=== PATIENT | male | born 1945 | race African-American/Black ===

== ENCOUNTER 2024-11-06 12:35 | Inpatient (IN) | payer OTHER, SELFPAY ==
[2024-11-06] VITALS (7 sets, daily range): BP systolic 117–145; BP diastolic 45–75; PULSE 69–92; RESP 16–24; TEMP 35.9–36.9; O2SAT 96–100; BMI 21.3
--- NOTE | 2024-11-06 | ECHO_ITS ---
Patient Info Name: Hugo Jeter Age: 79 years : 1945 Gender: Male Ht: 69 in Wt: 160 lbs BSA: 1.88 m2 HR: 80 bpm BP: 124 / 63 mmHg Heart Rhythm: Sinus Rhythm Technical Quality: Fair Exam Date: 11/06/2024 4:00 PM Patient Status: O Admit Date: 11/06/2024 Exam Type: CA echo dop bubble study w con Complete two-dimentional, color flow and Doppler transthoracic echocardiogram is performed with agitated saline and with contrast to opacify the left ventricle and to improve the delineation of the left ventricle endocardial borders. Staff Referring Physician: Miguel Torres MD Weapons Mechanic: Tootie Jarrell Attending Provider: Adelfo Siegel Contrast/Agitated Saline Contrast/Ag. Saline: Agitated Saline Amount: 20.00 ml Existing IV Access: Yes IV Access Condition: patent with no signs of infiltration Contrast/Ag. Saline: Definity Amount: 2.00 ml Administered By: Tootie Jarrell Existing IV Access: Yes IV Access Condition: patent with no signs of infiltration Summary 1. Technically difficult study with very poor acoustic windows and limited views. 2. There is normal biventricular size and systolic function. 3. Agitated saline study showed delayed transit of bubbles from [id number] suggestive of extracardiac shunt. Left Ventricle The left ventricle is normal in size and systolic function. The left ventricular ejection fraction is visually estimated be 50-55%. Cannot rule out regional wall motion abnormalities in this study. Right Ventricle The right ventricle is normal in size and systolic function. Left Atria The left atrium is normal size. Right Atria The right atrium is normal size. Atrial Septum Agitated saline study showed delayed transit of bubbles from [id number] suggestive of extracardiac shunt. Aortic Valve The aortic valve is not well visualized. Doppler gradients do not suggest significant aortic stenosis. Color Doppler suggests mild aortic regurgitation. Pulmonic Valve The pulmonic valve was not visualized. Mitral Valve The mitral valve leaflets are sclerotic. There is no mitral stenosis. There is no mitral regurgitation. Tricuspid Valve Tricuspid valve is not well visualized. Pericardium/Pleural Pericardium is normal in appearance with no evidence for significant pericardial effusion. Inferior Vena Cava Normal inferior vena cava with <50% collapse upon inspiration consistent with elevated right atrial pressure, 8 mmHg. Aorta The aorta is not well visualized. Left Ventricular Outflow Tract Name Value Normal LVOT 2D LVOT Diameter 2.0 cm LVOT Doppler LVOT Peak Velocity 68 cm/s LVOT Peak Gradient 2 mmHg LVOT Mean Gradient 1 mmHg LVOT VTI 13 cm LVOT VTI/AV VTI Ratio 0.5 LVOT Stroke Volume 39 ml LVOT CO 2.9 l/min LVOT CI 1.5 l/min/m2 Mitral Valve Name Value Normal MV Diastolic Function MV E Peak Velocity 52 cm/s MV A Peak Velocity 120 cm/s MV E/A 0.4 MV Decel Time (PW) 133 ms MV Annular TDI MV E/e' (Septal) 9.7 MV E/e' (Lateral) 7.9 MV E/e' (Average) 8.8 Tricuspid Valve Name Value Normal Estimated PAP/RSVP RA Pressure 8 mmHg <=5 TV Annular TDI TV Lateral Chyna s' Velocity 16.1 cm/s >=9.5 Aortic Valve Name Value Normal AV Doppler AV Peak Velocity 128 cm/s AV Peak Gradient 7 mmHg AV Mean Gradient 3 mmHg AV VTI 23 cm AV Area (Cont Eq VTI) 1.7 cm2 >=3.0 AV Area (Cont Eq Kameron) 1.7 cm2 AV DI (Kameron) 0.53 AV Regurgitation 2D LVOT Area 3.1 cm2 Ventricles Name Value Normal LV Dimensions 2D/MM LVOT Diameter 2.0 cm LV Fractional Shortening/Ejection Fraction 2D/MM LV Diastolic Volume (4C MOD) 149 ml LV EF (4C MOD) 52 % LV Diastolic Volume (2C MOD) 104 ml LV EF (2C MOD) 51 % LV Diastolic Volume (BP MOD) 133 ml 62-150 LV Diastolic Volume Index (BP MOD) 70 ml/m2 34-74 LV Systolic Volume (BP MOD) 62 ml 21-61 LV Systolic Volume Index (BP MOD) 33 ml/m2 11-31 LV EF (BP MOD) 53 % 52-72 LV Diastolic Length (4C) 9.5 cm LV Systolic Length (4C) 7.1 cm LV Stroke Volume (4C MOD) 78 ml Atria Name Value Normal LA Dimensions LA Volume (4C A-L) 39 ml LA Volume (BP A-L) 40 ml RA Dimensions RA Area (4C) 14.2 cm2 <=18.0 Report Signatures
--- NOTE | ~2024-11-06 | US_ITS ---
Duplex Sonography of the bilateral lower extremities: Indication: Swelling Sagittal and transverse B-mode images as well as color-flow imaging were performed on the right and l eft femoral and popliteal veins. B-mode examination was done without and with compression in the tra nsverse plane. There is good visualization of the bilateral common femoral, proximal profunda femora l, superficial femoral, greater saphenous, and popliteal veins. Normal flow was seen on color-flow im aging. Normal compressibility was demonstrated. Visualized calf veins are also patent. Impression: No evidence of deep vein thrombosis involving either lower extremity. Reviewed, dictated and finalized at location M. Impression: No evidence of deep vein thrombosis involving either lower extremit y.
--- NOTE | ~2024-11-06 | CT_ITS ---
EXAM: CTA brain carotid - 11/06/2024 12:40 CDT History: 79 years old Male with cva TECHNIQUE: CT scan of the head without contrast. Subsequently CTA of the head and neck with intraveno us contrast was performed. 3-D reconstructed images of cerebral artery circulation were generated on a [employer] workstation. Automatic exposure control was used for this study. CONTRAST: 100 cc of Omnipaque 350 was used for this study COMPARISON: None available. FINDINGS: Normal branching pattern of the thoracic aorta. Great vessels of the neck are patent. RIGHT ANTERIOR CIRCULATION: Innominate and right common carotid artery is normal in caliber. No significant stenosis at the carotid bifurcation by NASCET criteria. Cervical segment of the internal carotid artery is normal in caliber. Cavernous and supraclinoid segm ents of the internal carotid artery patent. M1 segment and middle cerebral artery bifurcation are unremarkable. A1 segment, anterior communicating artery complex and A2 segment are within normal limits. LEFT ANTERIOR CIRCULATION: Left common carotid artery is normal in caliber. No significant stenosis at the carotid bifurcation by NASCET criteria. Cervical segment of the internal carotid artery is normal in caliber. Cavernous and supraclinoid segm ents of the internal carotid artery patent. M1 segment and middle cerebral artery bifurcation are unremarkable. A1 segment, anterior communicating artery complex and A2 segment are within normal limits. POSTERIOR CIRCULATION: Vertebral arteries are codominant and patent throughout the neck. Intradural vertebral arteries are normal in caliber and terminate as the basilar artery. Basilar artery is normal in caliber. P1 and P2 segments of the posterior cerebral arteries are normal in caliber. OTHER: Multilevel degenerative changes of the visualized cervical spine. Visualized lungs are clear. Complet e opacification of the right maxillary sinus. Patient is edentulous. IMPRESSION: Unremarkable CTA of the head and neck. No evidence of cerebral artery aneurysm, stenosis or mass. Complete opacification of the right maxillary sinus. Correlate clinically for acute sinusitis. *REFERENCES: NASCET CRITERIA: The degree of internal carotid artery (ICA) stenosis is based on NASCET criteria. No rmal is no stenosis. Mild is less than 50% stenosis. Moderate is 50-69% stenosis. Severe is 70-99% st enosis. Total occlusion is no detectable patent lumen. Reviewed, dictated and finalized at location A. IMPRESSION: Unremarkable CTA of the head and neck. No evidence of cerebral artery aneurysm , stenosis or mass. Complete opacification of the right maxillary sinus. Correlate clinically for a cute sinusitis. *REFERENCES: NASCET CRITERIA: The degree of internal carotid artery (ICA) stenosis is based on NASCET criteria. Normal is no stenosis. Mild is less than 50% stenosis. Mode rate is 50-69% stenosis. Severe is 70-99% stenosis. Total occlusion is no detec table patent lumen.
--- NOTE | ~2024-11-06 | US_ITS ---
Limited Abdominal Sonogram: Real-time sonographic imaging of the right upper quadrant was performed. Clinical History: Abnormal liver enzymes Findings: The liver appears echogenic, with no evidence of mass lesion or bile duct dilatation. Main portal vein demonstrates normal direction of flow. The gallbladder is well distended, and appears no rmal with no evidence of gallstone or wall thickening. The common bile duct measures 4 mm. The visua lized pancreas, aorta, and IVC are unremarkable. Impression: Diffuse fatty infiltration of the liver. Reviewed, dictated and finalized at location M. Impression: Diffuse fatty infiltration of the liver.
--- NOTE | ~2024-11-06 | CT_ITS ---
CT head without contrast Indication: CVA Technique: Serial scans were obtained through the brain without the administration of contrast. Dose reduction technique was used on this scan by utilizing automated exposure control and iterative recon struction technique. The dose-length product (DLP) was 605.33 mGy-cm. Findings: There is no evidence of intracranial hemorrhage, mass lesion, or acute infarct. The ventri cles and subarachnoid spaces are dilated, consistent with mild atrophy. Minimal low attenuation regio ns are seen within the periventricular white matter bilaterally, likely representing changes from chr onic microvascular ischemic disease. There is no evidence of edema, mass effect or midline shift. Le ft maxillary sinus disease present. The remaining visualized paranasal sinuses and mastoid air cells are clear. Impression: No intracranial hemorrhage, mass, or acute infarct. Atrophy and chronic white matter changes, as above. Case discussed with Dr. Torres at 12:52 PM on 11/06/2024. Reviewed, dictated and finalized at [facility]. Impression: No intracranial hemorrhage, mass, or acute infarct. Atrophy and chronic white matter changes, as above. Case discussed with Dr. Torres at 12:52 PM on 11/06/2024.
--- NOTE | ~2024-11-06 | MR_ITS ---
EXAMINATION: MR brain/brain stem wo/w con DATE: 11/07/2024 16:03 INDICATION: Right-sided weakness TECHNIQUE: Magnetic resonance imaging (MRI) of the brain and brainstem was performed without and with 15 mL ProHance intravenous contrast. Sequences included sagittal and axial T1-weighted SE, axial dif fusion-weighted FS SE, axial 3D SWAN, axial T2-weighted FLAIR, and axial T2-weighted FSE. Postcontras t axial and coronal T1-weighted SE was obtained. Apparent diffusion coefficient (ADC) maps were creat ed. COMPARISON: Head CT dated 11/06/2024 FINDINGS: There are multiple small regions of restricted diffusion with mild associated increased T2 signal in the left frontal and parietal lobes consistent with acute infarcts, likely shower of emboli in the va scular distribution of the left middle cerebral artery. No intracranial hemorrhage or abnormal intrac ranial mass lesion. There are additional scattered areas of nonspecific increased T2-weighted signal intensity in the cerebral white matter, predominantly involving the deep and periventricular white ma tter. There are no intraparenchymal signal abnormalities seen on the other pulse sequences. The ventr icles are symmetric and normal in size. There are no abnormal extra-axial fluid collections. Flow voi ds are seen in the cerebral arteries on the T2-weighted sequences consistent with their expected lewis ncy. There is mucosal thickening in the left ethmoid and maxillary sinuses, the latter with additiona l central mucous nearly filling the left maxillary sinus. Visualized orbits and soft tissues are unre markable. There are no areas of abnormal enhancement on the post contrast images. IMPRESSION: 1. Multiple small acute infarcts in the left frontal and parietal lobes consistent with sharp emboli in the left middle cerebral artery vascular disease effusion. Reviewed, dictated and finalized at location [facility]. IMPRESSION: 1. Multiple small acute infarcts in the left frontal and parietal lobes consist ent with sharp emboli in the left middle cerebral artery vascular disease effus ion.
--- NOTE | ~2024-11-06 | CT_ITS ---
EXAMINATION: CT diagnostic chest wo con DATE: 11/10/2024 19:05 INDICATION: Assess for pulmonary arterial venous malformations TECHNIQUE: Computed tomography (CT) of the chest was performed with 100 mL Omnipaque-350 intravenous contrast. Automated exposure control and iterative reconstruction technique were employed. The dose-l ength product was 395.39 mGy-cm. COMPARISON: None. FINDINGS: CHEST: Thoracic aorta: No significant dilation or calcification. Lung parenchyma and airways: Spiculated 5.2 x 2.4 cm right upper lobe mass. Severe emphysematous reilly ge. Thoracic inlet, axillae and chest wall: No thyroid or soft tissue mass. No axillary lymphadenopathy. Mediastinum: Right suprahilar scarring and hilar retraction. Multiple enlarged right hilar and medias tinal lymph nodes. Heart and pericardium: Normal heart size. No pericardial effusion. Coronary artery calcifications: Moderate. Pleura: No effusion or mass. Upper abdomen: No significant finding. Thoracic bones: No acute osseous finding in the chest. T6 vertebral body hemangioma. IMPRESSION: 5.2 cm right upper lobe mass, concerning for malignancy. Right hilar and mediastinal lymph node invol vement is suspected. Consider biopsy and/or PET/CT. Pulmonary artery malformations cannot be adequately assessed without contrast. Reviewed, dictated and finalized at location [facility]. IMPRESSION: 5.2 cm right upper lobe mass, concerning for malignancy. Right hilar and medias tinal lymph node involvement is suspected. Consider biopsy and/or PET/CT. Pulmonary artery malformations cannot be adequately assessed without contrast.
--- NOTE | ~2024-11-06 | XR_ITS ---
XR chest 1V portable Ordering provider: Miguel Torres MD History: 79 years Male with . cva . Comparison: None. FINDINGS: MEDIASTINUM: The cardiac silhouette is not enlarged. LUNGS: No infiltrates, effusions or pneumothorax. Fibrotic changes are seen in the right upper lobe and left lower lobe. OTHER: No free air under the diaphragm. IMPRESSION: Fibrotic changes in the right upper and left lower lobe. No acute lung lesion seen Reviewed, dictated and finalized at location A.
--- NOTE | 2024-11-06 12:42 | ECG_ITS ---
Test Date: 2024-11-06 13:08:52 Measurements Intervals [place] Rate: 86 P: 50 WV: 169 QRS: 56 QRSD: 107 T: 118 QT: 362 QTc: 434 Interpretive Statements SINUS RHYTHM EARLY PRECORDIAL R/S TRANSITION ANTEROLATERAL INFARCT, AGE INDETERMINATE INFERIOR INFARCT, AGE INDETERMINATE CONSIDER HIGH LATERAL INFARCT, AGE INDETERMINATE ABNORMAL ECG No previous ECG available for comparison Electronically Signed On 11-06-2024 14:31:03 CDT by Kevin Mayer D.O.
[2024-11-06 12:49] LABS: Hematocrit 47.0 % (42.0-52.0); Hemoglobin 15.6 g/dL (14.0-18.0); Immature Granulocyte Percent A 0.6 % (0-0.5); Lymphocytes Absolute Auto 1.83 K/mm3 (0.9-3.2); Mean Corpuscular HGB Conc 33.2 g/dl (32-36); Mean Corpuscular Hemoglobin 30.0 pg (26-34); Mean Corpuscular Volume 90.4 fl (80-100); Nucleated Red Blood Cells Absolute Auto 0.000 K/mm3 (0.0-0.012); Nucleated Red Blood Cells Perc 0.0 % (0.0-0.2); Platelet Count Result 283 k/mm3 (150-375); Red Blood Count 5.20 M/mm3 (4.6-6.20); White Blood Count 10.8 K/mm3 (4.5-10.0)
[2024-11-06 13:00] LABS: Alanine Aminotransferase 20 U/L (6-50); Albumin Level 4.2 g/dL (3.5-5.1); Alkaline Phosphatase 179 U/L (38-126); Anion Gap 11 mmol/L (4-12); Aspartate Amino Transferase 32 U/L (17-59); Bilirubin,Total 0.5 mg/dL (0.2-1.3); Blood Urea Nitrogen 16 mg/dL (9-20); Calcium 9.9 mg/dL (8.4-10.2); Carbon Dioxide 20 mmol/L (22-30); Chloride 108 mmol/L (98-107); Estimated Glomerular Filt Rate 45; Glucose 115 mg/dL (65-110); Potassium 4.4 mmol/L (3.4-5.0); Sodium 139 mmol/L (137-145); Total Protein 8.9 g/dL (6.3-8.2)
[2024-11-06 13:10] LABS: INR 1.1; Prothrombin Time 14.0 Seconds (11.1-14.7)
[2024-11-06 13:11] LABS: Partial Thromboplastin Time 26.1 Seconds (22.3-36.8)
[2024-11-06 13:12] LABS: Troponin I < 0.012 ng/mL (0.000-0.034)
--- NOTE | 2024-11-06 13:45 | ED_ITS ---
HPI - General Adult General Chief complaint: Fall Stated complaint: fall, right sided weakness, slurred speech, Time Seen by Provider: 11/06/24 12:43 History of Present Illness HPI narrative: Patient is an 79-year-old male who presents ER with concerns for CVA. Last known well per his daughter was at 7:38 a.m. this morning. Patient has arrived outside the window for TNK. He has right facial/right arm/right leg weakness. He has some slurred speech. He is not on blood thinners. He has history of IA in the past. Patient had fallen on the floor was lying there he was found. Initially did not want to the hospital. Related Data Allergies Allergy/AdvReac Type Severity Reaction Status Date / Time No Known Allergies Allergy Verified 11/06/24 13:49 Review of Systems 2 Review of Systems: All systems reviewed & are unremarkable except as noted in HPI and below Constitutional: Constitutional: Reports no additional constitutional complaints Cardiovascular: Cardiovascular: Reports no additional cardiovascular complaints Respiratory: Respiratory: Reports no additional respiratory complaints Gastrointestinal: Gastrointestinal: Reports no additional gastrointestinal complaints Musculoskeletal: Musculoskeletal: Reports no additional musculoskeletal complaints Neurologic: Reports system reviewed and no additional complaints, except as documented PMFSH Past Medical History Medical History (Updated 11/06/24 @ 15:06 by Miguel Torres MD) Myocardial infarction Exam 2 Narrative: GENERAL: Well-appearing, well-nourished, and in no acute distress. HEAD: Normocephalic, atraumatic. ENT: Mucous membranes moist. CHEST: Clear to auscultation. No respiratory distress. HEART: Regular rate and rhythm. Normal peripheral pulses. ABDOMEN: Soft, nontender, nondistended. EXTREMITIES: Left arm and leg weakness. No edema. SKIN: Warm, dry, no rash. NEURO: See NIH stroke scale documentation which equals 9. Right-sided weakness in the arms/legs/face. No sharp herself sensory deficit. Mild slurred speech but no expressive aphasia. Alert and oriented x3. Reports no change in vision per PSYCH: Normal mood and affect. Course Course Emergency Course: Discussed case with Neurology, Dr. Casillas. Admit to hospitalist service with orders for MRI and echocardiogram. Start dual anti-platelet therapy. Patient outside the window for TNK and discussed this with patient and family member. No LVO/stenosis on CTA. Vital Signs Vital signs: Vital Signs Temperature 98.4 F 11/06/24 13:02 Pulse Rate 89 11/06/24 13:02 Respiratory Rate 24 H 11/06/24 13:02 Blood Pressure 130/56 L 11/06/24 13:02 Pulse Oximetry 96 11/06/24 13:02 Temperature 98.4 F 11/06/24 13:02 Pulse Rate 89 11/06/24 13:02 Respiratory Rate 24 H 11/06/24 13:02 Blood Pressure 130/56 L 11/06/24 13:02 Pulse Oximetry 96 11/06/24 13:02 Medical Decision Making Vital Signs Vital Signs: Vital Signs Temperature 98.4 F 11/06/24 13:02 Pulse Rate 89 11/06/24 13:02 Respiratory Rate 24 H 11/06/24 13:02 Blood Pressure 130/56 L 11/06/24 13:02 Pulse Oximetry 96 11/06/24 13:02 Temperature 98.4 F 11/06/24 13:02 Pulse Rate 89 11/06/24 13:02 Respiratory Rate 24 H 11/06/24 13:02 Blood Pressure 130/56 L 11/06/24 13:02 Pulse Oximetry 96 11/06/24 13:02 Lab Data 11/06/24 12:44 11/06/24 12:44 Labs: Lab Results 11/06/24 11/06/24 Range/Units 12:42 12:44 WBC 10.8 H (4.5-10.0) K/mm3 RBC 5.20 (4.6-6.20) M/mm3 Hgb 15.6 (14.0-18.0) g/dL Hct 47.0 (42.0-52.0) % MCV 90.4 (80-100) fl MCH 30.0 (26-34) pg MCHC 33.2 (32-36) g/dl RDW 13.8 (11.5-14.5) % Plt Count 283 (150-375) k/mm3 MPV 8.7 (7.4-10.4) fl Immature Gran % (Auto) 0.6 H (0-0.5) % Neut % (Auto) 73.0 (45.5-73.1) % Lymph % (Auto) 17.0 L (18.3-44.2) % [place] % (Auto) 8.5 (2.6-8.5) % Eos % (Auto) 0.6 (0-4.4) % Baso % (Auto) 0.3 (0.2-1.2) % Lymph # (Auto) 1.83 (0.9-3.2) K/mm3 [place] # (Auto) 0.9 H (0.1-0.6) K/mm3 Eos # (Auto) 0.1 (0-0.3) K/mm3 Baso # (Auto) 0.0 (0.0-0.1) K/mm3 Abs Immat Gran (auto) 0.06 H (0.00-0.031) K/mm3 Absolute Neuts (auto) 7.9 H (1.3-6.7) K/mm3 Absolute Nucleated RBC 0.000 (0.0-0.012) K/mm3 Nucleated RBC % 0.0 (0.0-0.2) % PT 14.0 (11.1-14.7) Seconds INR 1.1 APTT 26.1 (22.3-36.8) Seconds Sodium 139 (137-145) mmol/L Potassium 4.4 (3.4-5.0) mmol/L Chloride 108 H (98-107) mmol/L Carbon Dioxide 20 L (22-30) mmol/L Anion Gap 11 (4-12) mmol/L BUN 16 (9-20) mg/dL Creatinine 1.49 H (0.7-1.3) mg/dL Estim Creat Clear Calc Not Reportable Estimated GFR 45 L (59 - ) Glucose 115 H (65-110) mg/dL POC Capillary Glucose 100 (65-105) mg/dl Calcium 9.9 (8.4-10.2) mg/dL Total Bilirubin 0.5 (0.2-1.3) mg/dL AST 32 (17-59) U/L ALT 20 (6-50) U/L Alkaline Phosphatase 179 H (38-126) U/L Troponin I < 0.012 (0.000-0.034) ng/mL Total Protein 8.9 H (6.3-8.2) g/dL Albumin 4.2 (3.5-5.1) g/dL Imaging Data Radiologist's impression: ITS Impressions Head CT 11/06/24 12:52 Impression: No intracranial hemorrhage, mass, or acute infarct. Atrophy and chronic white matter changes, as above. Case discussed with Dr. Torres at 12:52 PM on 11/06/2024. Head/Neck CTA 11/06/24 13:07 IMPRESSION: Unremarkable CTA of the head and neck. No evidence of cerebral artery aneurysm, stenosis or mass. Complete opacification of the right maxillary sinus. Correlate clinically for acute sinusitis. *REFERENCES: NASCET CRITERIA: The degree of internal carotid artery (ICA) stenosis is based on NASCET criteria. Normal is no stenosis. Mild is less than 50% stenosis. Moderate is 50-69% stenosis. Severe is 70-99% stenosis. Total occlusion is no detectable patent lumen. Chest X-Ray 11/06/24 14:14 IMPRESSION: Fibrotic changes in the right upper and left lower lobe. No acute lung lesion seen ECG Data EKG #1: ECG completion date: 11/06/24 ECG completion time: 13:08 EKG Interpretation: normal rate (86), sinus rhythm, no ectopy, non- specific ST changes, normal QRS and normal QT Critical Care Time Critical Care Time Critical Care Time: Yes Total Critical Care Time: 35 Discharge Plan Discharge Clinical Impression: Acute CVA (cerebrovascular accident) Patient Disposition: Still a Patient Condition: Stable Patient Language: Albanian Follow-up/Referrals: UNKNOWN,DOCTOR [Primary Care Provider] - Quality Stroke Scale Stroke Scale 1: 1a Level of consciousness: alert-0 1b Level of consciousness questions: answers both correctly-0 1c Level of consciousness commands: obeys both correctly-0 2 Best gaze: normal-0 3 Visual: no visual loss-0 4 Facial palsy: partial paralysis-2 5a Motor: left arm: no drift-0 5b Motor: right arm: no effort/gravity-3 6a Motor: left leg: no drift-0 6b Motor: right leg: drift-1 7 Limb ataxia: present in two limbs-2 8 Sensory: normal-0 9 Best language: no aphasia-0 10 Dysarthria: slurs some words-1 11 Extinction and inattention: no abnormality-0 Level:: 9
[2024-11-06] MEDS: ASPIRIN 325 MG TABLET PO (13:53)
[2024-11-06] MEDS: CLOPIDOGREL BISULFATE 75 MG TABLET PO (13:53)
--- NOTE | 2024-11-06 14:25 | PM.IMHP ---
H&P: HPI History of Present Illness Date/Time: 11/06/24 21:23 Chief Complaint: Facial Droop, Extremity Weakness Narrative: 79 y/o M with PMH of myocardial infarction, cardiac stent placement in 2003, GERD, hernia, kidney stones presents here with facial droop and extremity weakness. The patient presents here from home for further evaluation of a right-sided facial droop, right hand weakness, and altered mental status. He was last seen well at 7:38 a.m. Discovery of symptoms at 09:00 a.m. He has no known history of stroke that he is aware of. Reporting weakness in his right leg, mild expressive aphasia, and dysarthria this evening. Denies any difficulty swallowing, no changes in his vision, dizziness or headache. He is not currently on anticoagulation. When found by his family, he had fallen on the floor and was lying on the ground. Patient is unsure if he lost consciousness or hit his head. Initial VS at presentation: 98.4? F, HR 89, RR 24, 130/56, and 96% on RA. ED workup showed: WBC 10.8, no anemia, normal coags, creatinine 1.49 and GFR 45, glucose 115, initial troponin negative. No previous lab work available for comparison. Head CT showed no acute intracranial hemorrhage/mass/acute infarct, atrophy and chronic white matter changes. Head/neck CTA showed an unremarkable CTA of the head/neck and no evidence of cerebral artery aneurysm/stenosis/mass and complete opacification of the right maxillary sinus. CXR showed fibrotic changes in the right upper and left lower lobe, no acute lung lesion seen. Review of Systems Review of Systems: All systems reviewed & are unremarkable except as noted in HPI and below FOR[facility]LY [facility] Past Medical History Medical History Arthritis Kidney stones Hernia GERD (gastroesophageal reflux disease) Myocardial infarction Surgical History Surgical History History of heart artery stent (~2003) Family History Family History Sibling Diabetes mellitus Mother Hypertension Social History Social History Smoking status: Current every day smoker Alcohol intake: former Substance use: never Do You Feel Safe in your Home?: Yes Lack of Transportation: YES Lack of Food: Never True Current Housing: I Have Housing Concerned About Future Housing: No Difficulty Paying Gas/Electric Bills: No Difficulty Paying for Meds: No Currently Unemployed: No Education: Don't Know Difficulty w/ Childcare or Family Care: No Spiritual care concerns: No Meds Home Medications and Allergies Home Medications ?Medication ?Instructions ?Recorded ?Confirmed ?Type No Home Medications 11/06/24 11/06/24 History Allergies Allergy/AdvReac Type Severity Reaction Status Date / Time No Known Allergies Allergy Verified 11/06/24 17:16 Vital Signs Vital Signs - 24 hr 11/06/24 13:02 11/06/24 14:14 Temperature 98.4 F Pulse Rate 89 92 Respiratory Rate 24 H 20 Blood Pressure 130/56 L 145/75 H Pulse Oximetry 96 98 Exam Const: General: comfortable and no acute distress Other: , male, elderly, nontoxic appearance. HENMT: Face/Nose/Sinus: Normal nares present Mouth: Yes moist mucous membranes Eyes: General: appearance normal, both eyes and all related structures Sclera: sclerae normal Pupils: Equal, round and reactive pupils present EOM: EOMs intact bilaterally Resp: Effort & Inspection: normal respiratory effort Auscultation: clear to auscultation bilaterally Cardio: Rate: regular rate Rhythm: regular rhythm Other: S1-S2 present without murmur, rub, ectopy GI: Other: Abdomen soft, nondistended, nontender. Normoactive bowel sounds in all quadrants. Skin: General skin exam: normal color and no rashes or lesions noted Wounds: no wounds Neuro: Other: Initial NIHSS 1a: Level of Consciousness 0 1b: LOC Questions 0 1c:?LOC Tasks 0 2:?Best Gaze 0 3:?Visual?[place] 0 4: Facial Palsy 2 5a: Motor Arm?R 0 5b: Motor Arm L 3 6a:?Motor Leg R 0 6a:?Motor Leg L 1 7: Limb Ataxia 2 8: Sensation 0 9:?Language/Aphasia 1 10:?Dysarthria?1 11: Extinction and Inattention 0 Total: 10 +dysarthria, some word finding difficulty but minimal. +Right facial droop. Weakness noticed in the right upper extremity and right lower extremity. +five in the left upper extremity and left lower extremity. No gaze palsy noted. Extrem: General: normal to inspection Psych: Mental Status: mental status grossly normal Affect: normal affect Other: Good insight and judgment, pleasant H&P: Results Labs Labs: Short CBC 11/06/24 Range/Units 12:44 WBC 10.8 H (4.5-10.0) K/mm3 Hgb 15.6 (14.0-18.0) g/dL Hct 47.0 (42.0-52.0) % Plt Count 283 (150-375) k/mm3 BMP 11/06/24 12:44 Sodium 139 Potassium 4.4 Chloride 108 H Carbon Dioxide 20 L BUN 16 Creatinine 1.49 H Glucose 115 H Calcium 9.9 Cardiac Enzymes 11/06/24 Range/Units 12:44 Troponin I < 0.012 (0.000-0.034) ng/mL Liver Function 11/06/24 Range/Units 12:44 Total Bilirubin 0.5 (0.2-1.3) mg/dL AST 32 (17-59) U/L ALT 20 (6-50) U/L Alkaline Phosphatase 179 H (38-126) U/L Albumin 4.2 (3.5-5.1) g/dL Assessment and Plan Assessment and plan (1) CVA (cerebral vascular accident): Code(s): I63.9 - Cerebral infarction, unspecified Status: Suspected Assessment and Plan: New deficits of right facial droop, right upper extremity weakness, and altered mental status discovered at 9:00 a.m.. Last known well at 7:38 a.m.. - admission for observation and telemetry - not candidate for thrombolytics due to timeframe -not candidate for thrombectomy, no LVO on CTA - CXR: Fibrotic changes in the right upper and left lower lobe. No acute lung lesion seen - CTA head/neck: Unremarkable CTA of the head and neck. No evidence of cerebral artery aneurysm, stenosis or mass. Complete opacification of the right maxillary sinus. Correlate clinically for acute sinusitis. - neurology consulted - brain MRI w/wo ordered - echo w/Bubble ordered - neuro checks Q4 - speech/swallow eval - PT/OT to eval and treat - monitor daily labs, check lipid panel, TSH, UA, and A1C - fall precautions - start Atorvastatin 40 mg PO, Plavix 75 mg PO, ASA 81 mg Plan Diet: Heart healthy GI Prophylaxis: Not currently indicated DVT Prophylaxis: SCDs IV fluids: None Lines/Tubes: Peripheral IV Code Status: Full code Quality VTE Prophylaxis VTE prophylaxis: mechanical ordered Hospitalist MIPS Advance Care Plan I have confirmed that the patient's Advanced Care Plan is present, code status is documented, or surrogate decision maker is listed in patient medical record.: Yes Medication Reconciliation I have utilized all available resources to obtain, update and review the patients current medications (includes all prescriptions, OTC, herbals, cannabis, and nutritional supplements).: Yes
[2024-11-06] MEDS: PERFLUTREN LIPID MICROSPHERES 1.5 ML VIAL DILUTED TO 10 ML TOTAL VOLUME IV PUSH (16:40)
--- NOTE | 2024-11-06 16:52 | IVDEFINITY ---
Prior to administration of IV Definity the patient was educated on the risks and benefits of the imaging enhancing agent including potential adverse side effects. The patient verbalized understanding. Allergies were verified. No exclusion criteria were identified and at least one of the following inclusion criteria were met: 1) physician request, 2) patient technically difficult to image (per the [place] [employer]chocardi[employer] guidelines of two or more segments not discernable within the apical view), or 3) questionable left ventricular function. ?
--- NOTE | 2024-11-06 16:58 | ADMGEN ---
This patient, Hugo Jeter, was admitted to [facility] S[facility] Room 323-01. Patient/family oriented to hospital policies and general routines including ID bracelet, bed and alarms, visiting hours, pain management, procedures, bathroom and other care routines, personal items, smoking policy, room service/diet, and visiting hours. Information on how to activate the Rapid Response Team has been discussed. Patient/Family are encouraged to report perceived risks to care and to ask questions if they do not understand what they are told or what they should do. Report from Tameka.
[2024-11-06 21:45] LABS: Add Urine Microscopic? YES; Appearance Urine Clear (Clear); Glucose Urine UA Negative (Negative); Leukocyte Esterase Ur Negative LEU/UL (Negative); Nitrate Urine Negative (Negative); Non Pathogenic Casts 0-2; Specific Grav Ur > 1.045 (1.001-1.035)
[2024-11-07] VITALS (7 sets, daily range): BP systolic 123–145; BP diastolic 39–48; PULSE 63–99; RESP 16–20; TEMP 36.2–36.6; O2SAT 96–98
[2024-11-07 06:50] LABS: Hematocrit 44.3 % (42.0-52.0); Hemoglobin 14.3 g/dL (14.0-18.0); Immature Granulocyte Percent A 0.5 % (0-0.5); Lymphocytes Absolute Auto 2.35 K/mm3 (0.9-3.2); Mean Corpuscular HGB Conc 32.3 g/dl (32-36); Mean Corpuscular Hemoglobin 29.6 pg (26-34); Mean Corpuscular Volume 91.7 fl (80-100); Nucleated Red Blood Cells Absolute Auto 0.000 K/mm3 (0.0-0.012); Nucleated Red Blood Cells Perc 0.0 % (0.0-0.2); Platelet Count Result 266 k/mm3 (150-375); Red Blood Count 4.83 M/mm3 (4.6-6.20); White Blood Count 9.3 K/mm3 (4.5-10.0)
[2024-11-07 07:13] LABS: Alanine Aminotransferase 15 U/L (6-50); Albumin Level 4.0 g/dL (3.5-5.1); Alkaline Phosphatase 169 U/L (38-126); Anion Gap 11 mmol/L (4-12); Aspartate Amino Transferase 34 U/L (17-59); Bilirubin,Total 0.5 mg/dL (0.2-1.3); Blood Urea Nitrogen 17 mg/dL (9-20); Calcium 9.5 mg/dL (8.4-10.2); Carbon Dioxide 20 mmol/L (22-30); Chloride 106 mmol/L (98-107); Cholesterol 178 mg/dL (0-200); Estimated CRCL calculation 38 ml/min; Estimated Glomerular Filt Rate 50; Glucose 89 mg/dL (65-110); HDL Direct 38 mg/dL; Magnesium 2.3 mg/dL (1.6-2.3); Potassium 4.3 mmol/L (3.4-5.0); Sodium 137 mmol/L (137-145); Total Protein 7.9 g/dL (6.3-8.2); Triglycerides 62 mg/dL (<150)
[2024-11-07 07:26] LABS: Hemoglobin A1C. 5.9 % (<5.7)
[2024-11-07 07:42] LABS: Thyroid Stimulating Hormone Reflex 1.560 uIU/mL (0.465-4.68)
[2024-11-07] MEDS: ASPIRIN 81 MG ENTERIC TABLET PO (08:12)
[2024-11-07] MEDS: ATORVASTATIN 40 MG TABLET PO (08:12)
[2024-11-07] MEDS: CLOPIDOGREL BISULFATE 75 MG TABLET PO (08:12)
--- NOTE | 2024-11-07 08:46 | PCSTNOTE ---
Please refer to the Bedside Swallow Evaluation in the EMR. Please note, silent aspiration cannot be ruled out at bedside. The patient is a 79 yr old male admitted with a new onset CVA with right side weakness and communication deficits. Order received to complete a BSS. The patient was positioned upright in bed and seen with his morning meal. Consistencies assessed included: thin liquid via straw, soft solids, and solid consistencies. The patient is right side dominant but was able to perform self feeding after set-up with left side and extra time. Verbal expression is limited but able to answer questions regarding basic wants and swallowing concerns. Oral Stage: Mildly delayed oral preparation with soft and semi-soft secondary to some anterior limited dentition. Also mild oral residual viewed to remain in the right lateral sulcus. With instruction the patient could complete a tongue sweep and /or a liquid wash. Pharyngeal Stage: The patient was viewed to have timely swallow initiation without noted coughing or choking or clinical signs of aspiration. Recommend continuing current diet and Speech communication consult.
--- NOTE | 2024-11-07 11:09 | P.CONNEU_ITS ---
Assessment and Plan Assessment and plan (1) Acute CVA (cerebrovascular accident): Code(s): I63.9 - Cerebral infarction, unspecified Status: Acute Plan 1. Status post left hemispheric stroke for which he arrived to the ER outside the window fo rTNK. 2. Normal CTA but will benefit from the MRI her further documentation and if the MRI of the head is negative MRI of the cervical spine will be warranted to rule out the possibility of cervical cord involvement from new or previous process. And obviously if the MRI of the head is abnormal he will benefit from echocardiogram. He is already on atorvastatin 40mg daily, was started in the ER on aspirin 81mg daily, and clopidogrel 75mg daily for the next 6 weeks. If you have any further question please not hesitate to contact me thanks. Consult date: 11/07/24 HPI: Hugo Jeter is a 79 year old male admitted to the hospital for the possibility of cerebrovascular accident was brought to the hospital by his daughter for the complaints of right facial right upper extremity and right lower extremity weakness along with slurred speech and also with statement that he was not on any blood thinning medication but he was definitely out of the window, patient was on the floor and initially was reluctant to come to the hospital, he is not known to be allergic to any medications, on initial exam in the emergency room he was noted to have left upper and left lower extremity weakness with no edema, his vital signs were normal, CBC was normal, BMP was fairly normal, master scan normal, initial CT scan of the head documented atrophy of the brain with no intracranial bleed, CTA was normal EKG revealed no atrial fibrillation, as per the further documentation patient has not had any stroke in the past and he was aware of mild right-sided weakness and speech difficulties but he was not having swallowing difficulties and he was not on any anticoagulation therapy, Review of Systems 2 Review of Systems: All systems reviewed & are unremarkable except as noted in HPI and below [facility] Past Medical History Medical History Arthritis Kidney stones Hernia GERD (gastroesophageal reflux disease) Myocardial infarction Surgical History Surgical History History of heart artery stent (~2003) Family History Family History Sibling Diabetes mellitus Mother Hypertension Social History Social History Smoking status: Current every day smoker Alcohol intake: former Substance use: never Do You Feel Safe in your Home?: Yes Lack of Transportation: YES Lack of Food: Never True Current Housing: I Have Housing Concerned About Future Housing: No Difficulty Paying Gas/Electric Bills: No Difficulty Paying for Meds: No Currently Unemployed: No Education: Don't Know Difficulty w/ Childcare or Family Care: No Spiritual care concerns: No Meds Home Medications and Allergies Home Medications ?Medication ?Instructions ?Recorded ?Confirmed ?Type No Home Medications 11/06/24 11/06/24 History Allergies Allergy/AdvReac Type Severity Reaction Status Date / Time No Known Allergies Allergy Verified 11/06/24 17:16 Vital Signs Vital Signs - 24 hr 11/06/24 13:02 11/06/24 14:14 11/06/24 15:13 Temperature 36.9 C Pulse Rate 89 92 80 Respiratory Rate 24 H 20 20 Blood Pressure 130/56 L 145/75 H 124/63 Pulse Oximetry 96 98 100 Oxygen Delivery 11/06/24 16:00 11/06/24 17:18 11/06/24 20:00 Temperature Pulse Rate 69 72 Respiratory Rate Blood Pressure Pulse Oximetry Oxygen Delivery Room Air 11/06/24 22:00 11/06/24 23:09 11/07/24 04:00 Temperature 35.9 C L Pulse Rate 71 75 99 Respiratory Rate 16 Blood Pressure 117/45 L Pulse Oximetry 98 Oxygen Delivery 11/07/24 07:32 11/07/24 09:25 Temperature 36.6 C Pulse Rate 63 Respiratory Rate 20 Blood Pressure 145/44 H Pulse Oximetry 97 Oxygen Delivery Room Air Exam 2 Narrative: exam this morning revealed him to be awake alert cooperative in no obvious acute distress, head was normocephalic with no cranial bruits, neck was supple with no meningeal signs and no cervical bruits, heart was regular with no murmur, lungs were clear to auscultation with no rhonchi or crepitations, abdomen is soft nontender with no organomegaly, his skin was clear, motor examination revealed him to be weaker on the right side involving the right upper and right lower extremity, deep tendon reflexes are mildly asymmetrical, and right plantar response was upgoing, there was no evidence of gross cerebellar deficit though his slight difficulties in performing on the right side. Results Labs 11/07/24 06:20 11/07/24 06:20 Labs: Short CBC 11/06/24 11/07/24 Range/Units 12:44 06:20 WBC 10.8 H 9.3 (4.5-10.0) K/mm3 Hgb 15.6 14.3 (14.0-18.0) g/dL Hct 47.0 44.3 (42.0-52.0) % Plt Count 283 266 (150-375) k/mm3 BMP 11/06/24 11/07/24 12:44 06:20 Sodium 139 137 Potassium 4.4 4.3 Chloride 108 H 106 Carbon Dioxide 20 L 20 L BUN 16 17 Creatinine 1.49 H 1.36 H Glucose 115 H 89 Calcium 9.9 9.5 Cardiac Enzymes 11/06/24 Range/Units 12:44 Troponin I < 0.012 (0.000-0.034) ng/mL Liver Function 11/06/24 11/07/24 Range/Units 12:44 06:20 Total Bilirubin 0.5 0.5 (0.2-1.3) mg/dL AST 32 34 (17-59) U/L ALT 20 15 (6-50) U/L Alkaline Phosphatase 179 H 169 H (38-126) U/L Albumin 4.2 4.0 (3.5-5.1) g/dL Urine 11/06/24 Range/Units 21:31 Urine Color Yellow (Yellow) Urine Appearance Clear (Clear) Urine pH 5.5 (5.0-9.0) Ur Specific [place] > 1.045 H (1.001-1.035) Urine Protein Trace (Negative) mg/dL Urine Glucose (UA) Negative (Negative) mg/dL
--- NOTE | 2024-11-07 12:46 | PM.IMPN ---
Progress Note: A&P Assessment and Plan (1) CVA (cerebral vascular accident): Code(s): I63.9 - Cerebral infarction, unspecified Status: Suspected Plan FAcial droop, R sided weakness CVA CT and CTA unremarkable MRI pending Echo pending continue ASA, Plavix and statin Pt/OT Neurology team on board continue to monitor CXR: Fibrotic changes in the right upper and left lower lobe. No acute lung lesion seen follow with PCp as outpatient Diet: Heart healthy GI Prophylaxis: Not currently indicated DVT Prophylaxis: SCDs IV fluids: None Lines/Tubes: Peripheral IV Code Status: Full code Subjective Date/time seen: 11/07/24 12:46 Interval history: per HPI: 79 y/o M with PMH of myocardial infarction, cardiac stent placement in 2003, GERD, hernia, kidney stones presents here with facial droop and extremity weakness. The patient presents here from home for further evaluation of a right-sided facial droop, right hand weakness, and altered mental status. He was last seen well at 7:38 a.m. Discovery of symptoms at 09:00 a.m. He has no known history of stroke that he is aware of. Reporting weakness in his right leg, mild expressive aphasia, and dysarthria this evening. Denies any difficulty swallowing, no changes in his vision, dizziness or headache. He is not currently on anticoagulation. When found by his family, he had fallen on the floor and was lying on the ground. Patient is unsure if he lost consciousness or hit his head. Initial VS at presentation: 98.4? F, HR 89, RR 24, 130/56, and 96% on RA. ED workup showed: WBC 10.8, no anemia, normal coags, creatinine 1.49 and GFR 45, glucose 115, initial troponin negative. No previous lab work available for comparison. Head CT showed no acute intracranial hemorrhage/mass/acute infarct, atrophy and chronic white matter changes. Head/neck CTA showed an unremarkable CTA of the head/neck and no evidence of cerebral artery aneurysm/stenosis/mass and complete opacification of the right maxillary sinus. CXR showed fibrotic changes in the right upper and left lower lobe, no acute lung lesion seen. 11/07/24 Patient was seen and examined at bedside. he is feeling fine. still has facial droop, R upper ext weakness and difficulty with his speech. Neurology team on board. continue ASA and plavix and statin. Permissive HTN. CT and CTA neg. MRI Review of Systems Review of Systems: All systems reviewed & are unremarkable except as noted in HPI and below Exam Narrative: +dysarthria, some word finding difficulty but minimal. +Right facial droop. +5 in the lower extremityies. +4 in the RUE, +5 in the LUE. no gaze palsy. Const: General: comfortable and no acute distress Other: , male, elderly, nontoxic appearance. HENMT: Face/Nose/Sinus: Normal nares present Mouth: Yes moist mucous membranes Eyes: General: appearance normal, both eyes and all related structures Sclera: sclerae normal Pupils: Equal, round and reactive pupils present EOM: EOMs intact bilaterally Resp: Effort & Inspection: normal respiratory effort Auscultation: clear to auscultation bilaterally Cardio: Rate: regular rate Rhythm: regular rhythm Other: S1-S2 present without murmur, rub, ectopy GI: Other: Abdomen soft, nondistended, nontender. Normoactive bowel sounds in all quadrants. Skin: General skin exam: normal color and no rashes or lesions noted Wounds: no wounds Neuro: Cranial nerves: Yes Equal, round and reactive pupils present Other: Initial NIHSS 1a: Level of Consciousness 0 1b: LOC Questions 0 1c:?LOC Tasks 0 2:?Best Gaze 0 3:?Visual?[place] 0 4: Facial Palsy 2 5a: Motor Arm?R 0 5b: Motor Arm L 3 6a:?Motor Leg R 0 6a:?Motor Leg L 1 7: Limb Ataxia 2 8: Sensation 0 9:?Language/Aphasia 1 10:?Dysarthria?1 11: Extinction and Inattention 0 Total: 10 +dysarthria, some word finding difficulty but minimal. +Right facial droop. Weakness noticed in the right upper extremity and right lower extremity. +five in the left upper extremity and left lower extremity. No gaze palsy noted. Extrem: General: normal to inspection Psych: Mental Status: mental status grossly normal Affect: normal affect Other: Good insight and judgment, pleasant Objective Data Vital Signs Vital Signs: Vital Signs - 24 hr 11/06/24 13:02 11/06/24 14:14 11/06/24 15:13 Temperature 98.4 F Pulse Rate 89 92 80 Respiratory Rate 24 H 20 20 Blood Pressure 130/56 L 145/75 H 124/63 Pulse Oximetry 96 98 100 Oxygen Delivery 11/06/24 16:00 11/06/24 17:18 11/06/24 20:00 Temperature Pulse Rate 69 72 Respiratory Rate Blood Pressure Pulse Oximetry Oxygen Delivery Room Air 11/06/24 22:00 11/06/24 23:09 11/07/24 04:00 Temperature 96.7 F L Pulse Rate 71 75 99 Respiratory Rate 16 Blood Pressure 117/45 L Pulse Oximetry 98 Oxygen Delivery 11/07/24 07:32 11/07/24 09:25 Temperature 97.9 F Pulse Rate 63 Respiratory Rate 20 Blood Pressure 145/44 H Pulse Oximetry 97 Oxygen Delivery Room Air Intake/Output Intake/Output: Intake & Output 11/04/24 11/05/24 11/06/24 11/07/24 23:59 23:59 23:59 23:59 Intake Total 240 490 Output Total 800 Balance 240 -310 Meds/Results Medications: Active Medications Generic Name Dose Route Start Last Admin Trade Name Freq PRN Reason Stop Dose Admin Acetaminophen 650 mg 11/06/24 14:12 Acetaminophen 325 Mg Tablet PO Q4H PRN Mild Pain (1-3) or Fever Hydrocodone Bitart/Acetaminophen 1 tab 11/06/24 14:12 Hydrocodone/Acetaminophen (*Crx) 5-325 Mg Tablet PO Q4H PRN Pain Rated 4-6 Aspirin 81 mg 11/07/24 09:00 11/07/24 08:12 Aspirin 81 Mg Enteric Tablet PO 81 mg QAM KARL Administration Atorvastatin Calcium 40 mg 11/07/24 09:00 11/07/24 08:12 Atorvastatin 40 Mg Tablet PO 40 mg DAILY KARL Administration Clopidogrel Bisulfate 75 mg 11/07/24 09:00 11/07/24 08:12 Clopidogrel Bisulfate 75 Mg Tablet PO 75 mg QAM KARL Administration Morphine Sulfate 2 mg 11/06/24 14:12 Morphine Sulfate (*Crx) 2 Mg/Ml Inj IV PUSH Q2H PRN Pain Rated 7-10 Ondansetron HCl 4 mg 11/06/24 14:12 Ondansetron Inj 4 Mg/2 Ml Vial IV PUSH Q4H PRN Nausea Radiology Results: ITS Impressions Head CT 11/06/24 12:52 Impression: No intracranial hemorrhage, mass, or acute infarct. Atrophy and chronic white matter changes, as above. Case discussed with Dr. Torres at 12:52 PM on 11/06/2024. Head/Neck CTA 11/06/24 13:07 IMPRESSION: Unremarkable CTA of the head and neck. No evidence of cerebral artery aneurysm, stenosis or mass. Complete opacification of the right maxillary sinus. Correlate clinically for acute sinusitis. *REFERENCES: NASCET CRITERIA: The degree of internal carotid artery (ICA) stenosis is based on NASCET criteria. Normal is no stenosis. Mild is less than 50% stenosis. Moderate is 50-69% stenosis. Severe is 70-99% stenosis. Total occlusion is no detectable patent lumen. Chest X-Ray 11/06/24 14:14 IMPRESSION: Fibrotic changes in the right upper and left lower lobe. No acute lung lesion seen Labs Labs: Laboratory Results - last 24 hr 11/06/24 11/06/24 11/07/24 12:44 21:31 06:20 WBC 10.8 H 9.3 RBC 5.20 4.83 Hgb 15.6 14.3 Hct 47.0 44.3 MCV 90.4 91.7 MCH 30.0 29.6 MCHC 33.2 32.3 RDW 13.8 14.0 Plt Count 283 266 MPV 8.7 8.7 Immature Gran % (Auto) 0.6 H 0.5 Neut % (Auto) 73.0 62.0 Lymph % (Auto) 17.0 L 25.2 [place] % (Auto) 8.5 10.3 H Eos % (Auto) 0.6 1.6 Baso % (Auto) 0.3 0.4 Lymph # (Auto) 1.83 2.35 [place] # (Auto) 0.9 H 1.0 H Eos # (Auto) 0.1 0.2 Baso # (Auto) 0.0 0.0 Abs Immat Gran (auto) 0.06 H 0.05 H Absolute Neuts (auto) 7.9 H 5.8 Absolute Nucleated RBC 0.000 0.000 Nucleated RBC % 0.0 0.0 PT 14.0 INR 1.1 APTT 26.1 Sodium 139 137 Potassium 4.4 4.3 Chloride 108 H 106 Carbon Dioxide 20 L 20 L Anion Gap 11 11 BUN 16 17 Creatinine 1.49 H 1.36 H Estim Creat Clear Calc Not Reportable 38 Estimated GFR 45 L 50 L Glucose 115 H 89 Hemoglobin A1c 5.9 H Calcium 9.9 9.5 Magnesium 2.3 Total Bilirubin 0.5 0.5 AST 32 34 ALT 20 15 Alkaline Phosphatase 179 H 169 H Troponin I < 0.012 Total Protein 8.9 H 7.9 Albumin 4.2 4.0 Triglycerides 62 Cholesterol 178 LDL Cholesterol Direct 95 HDL Direct 38 TSH (Reflex) 1.560 Urine Color Yellow Urine Appearance Clear Urine pH 5.5 Ur Specific [place] > 1.045 H Urine Protein Trace Urine Glucose (UA) Negative Urine Ketones Negative Ur Blood (Man) Trace Urine Nitrate Negative Urine Bilirubin Negative Urine Urobilinogen 1.0 Leukocyte Esterase Rfl Negative Urine RBC 3-5 H Urine WBC 0-5 Ur Squamous Epith Cells None seen Urine Bacteria None seen Urine Casts 0-2 Quality VTE Prophylaxis VTE prophylaxis: mechanical ordered
[2024-11-08] VITALS (11 sets, daily range): BP systolic 127–133; BP diastolic 50–54; PULSE 53–69; RESP 16–20; TEMP 36.2–36.8; O2SAT 97–99
[2024-11-08 06:46] LABS: Hematocrit 44.1 % (42.0-52.0); Hemoglobin 14.5 g/dL (14.0-18.0); Mean Corpuscular HGB Conc 32.9 g/dl (32-36); Mean Corpuscular Hemoglobin 30.0 pg (26-34); Mean Corpuscular Volume 91.1 fl (80-100); Platelet Count Result 274 k/mm3 (150-375); Red Blood Count 4.84 M/mm3 (4.6-6.20); White Blood Count 9.4 K/mm3 (4.5-10.0)
[2024-11-08 07:03] LABS: Anion Gap 9 mmol/L (4-12); Blood Urea Nitrogen 19 mg/dL (9-20); Calcium 9.4 mg/dL (8.4-10.2); Carbon Dioxide 20 mmol/L (22-30); Chloride 107 mmol/L (98-107); Estimated CRCL calculation 40 ml/min; Estimated Glomerular Filt Rate 53; Glucose 90 mg/dL (65-110); Potassium 4.4 mmol/L (3.4-5.0); Sodium 136 mmol/L (137-145)
--- NOTE | 2024-11-08 08:43 | PCPTNOTE ---
Attempted to see patient for PT, however patient was working with speech therapy.
[2024-11-08] MEDS: ATORVASTATIN 40 MG TABLET PO (09:04)
[2024-11-08] MEDS: CLOPIDOGREL BISULFATE 75 MG TABLET PO (09:04)
[2024-11-08] MEDS: ASPIRIN 81 MG ENTERIC TABLET PO (09:04)
[2024-11-08] MEDS: APIXABAN 5 MG TABLET 10 MG PO ×2 (09:06→21:18)
--- NOTE | 2024-11-08 15:11 | P.PNIM_ITS ---
Progress Note: A&P Assessment and Plan (1) CVA (cerebral vascular accident): Code(s): I63.9 - Cerebral infarction, unspecified Status: Suspected Plan FAcial droop, R sided weakness CVA CT and CTA unremarkable MRI showed :1. Multiple small acute infarcts in the left frontal and parietal lobes consistent with sharp emboli in the left middle cerebral artery vascular disease effusion. echo:Agitated saline study showed delayed transit of bubbles from [id number] suggestive of extracardiac shunt. Added eliquis. consulted cardiology team. continue ASA, Plavix and statin Pt/OT Neurology team on board continue to monitor CXR: Fibrotic changes in the right upper and left lower lobe. No acute lung lesion seen follow with PCp as outpatient HTN permissive HTN GUI vs CKD3a Renally adjust meds continue to monitor Mild hyponatremia monitor for now Diet: Heart healthy GI Prophylaxis: Not currently indicated DVT Prophylaxis: SCDs IV fluids: None Lines/Tubes: Peripheral IV Code Status: Full code Subjective Date/time seen: 11/08/24 15:11 Interval history: per HPI: 79 y/o M with PMH of myocardial infarction, cardiac stent placement in 2003, GERD, hernia, kidney stones presents here with facial droop and extremity weakness. The patient presents here from home for further evaluation of a right-sided facial droop, right hand weakness, and altered mental status. He was last seen well at 7:38 a.m. Discovery of symptoms at 09:00 a.m. He has no known history of stroke that he is aware of. Reporting weakness in his right leg, mild expressive aphasia, and dysarthria this evening. Denies any difficulty swallowing, no changes in his vision, dizziness or headache. He is not currently on anticoagulation. When found by his family, he had fallen on the floor and was lying on the ground. Patient is unsure if he lost consciousness or hit his head. Initial VS at presentation: 98.4? F, HR 89, RR 24, 130/56, and 96% on RA. ED workup showed: WBC 10.8, no anemia, normal coags, creatinine 1.49 and GFR 45, glucose 115, initial troponin negative. No previous lab work available for comparison. Head CT showed no acute intracranial hemorrhage/mass/acute infarct, atrophy and chronic white matter changes. Head/neck CTA showed an unremarkable CTA of the head/neck and no evidence of cerebral artery aneurysm/stenosis/mass and complete opacification of the right maxillary sinus. CXR showed fibrotic changes in the right upper and left lower lobe, no acute lung lesion seen. 11/07/24 Patient was seen and examined at bedside. he is feeling fine. still has facial droop, R upper ext weakness and difficulty with his speech. Neurology team on board. continue ASA and plavix and statin. Permissive HTN. CT and CTA neg. MRI 11/08/24 Patient was seen and examiend at bedside. he is feeling better. His R upper ext is getting stronger. MRI showed :1. Multiple small acute infarcts in the left frontal and parietal lobes consistent with sharp emboli in the left middle cerebral artery vascular disease effusion. echo:Agitated saline study showed delayed transit of bubbles from [id number] suggestive of extracardiac shunt. Added eliquis. consulted cardiology team. will follow neurology team recommendation. Review of Systems Review of Systems: All systems reviewed & are unremarkable except as noted in HPI and below Exam Narrative: +dysarthria, some word finding difficult y but minimal. +Right facial droop. +5 in the lower extremityies. +4 in the RUE, +5 in the LUE. no gaze palsy. Const: General: comfortable and no acute distress Other: , male, elderly, nontoxic appearance. HENMT: Face/Nose/Sinus: Normal nares present Mouth: Yes moist mucous membra ruth Eyes: General: appearance normal, both eyes and all related structures Sclera: sclerae normal Pupils: Equal, round and reactive pupils present EOM: EOMs intact bilaterally Resp: Effort & Inspection: normal respiratory effort Auscultation: clear to auscultation bilaterally Cardio: Rate: regular rate Rhythm: regular rhythm Other: S1-S2 present without murmur, rub, ectopy GI: Other: Abdomen soft, nondistended, nontender. Normoactive bowel sounds in all quadrants. Skin: General skin exam: normal color and no rashes or lesions noted Wounds: no wounds Neuro: Cranial nerves: Yes Equal, round and reactive pupils present Other: Initial NIHSS 1a: Level of Consciousness 0 1b: LOC Questions 0 1c:?LOC Tasks 0 2:?Best Gaze 0 3:?Visual?[place] 0 4: Facial Palsy 2 5a: Motor Arm?R 0 5b: Motor Arm L 3 6a:?Motor Leg R 0 6a:?Motor Leg L 1 7: Limb Ataxia 2 8: Sensation 0 9:?Language/Aphasia 1 10:?Dysarthria?1 11: Extinction and Inattention 0 Total: 10 +dysarthria, some word finding difficulty but minimal. +Right facial droop. Weakness noticed in the right upper extremity and right lower extremity. +five in the left upper extremity and left lower extremity. No gaze palsy noted. Extrem: General: normal to inspection Psych: Mental Status: mental status grossly normal Affect: normal affect Other: Good insight and judgment, pleasant Objective Data Vital Signs Vital Signs: Vital Signs - 24 hr 11/07/24 20:00 11/07/24 20:00 11/07/24 21:27 Temperature 97.7 F Pulse Rate 65 70 65 Respiratory Rate 16 16 Blood Pressure 123/39 L Pulse Oximetry 96 96 Oxygen Delivery Room Air 11/08/24 00:00 11/08/24 04:00 11/08/24 06:00 Temperature 98.2 F Pulse Rate 61 63 60 Respiratory Rate 16 Blood Pressure 127/54 L Pulse Oximetry 98 Oxygen Delivery 11/08/24 08:00 11/08/24 09:00 11/08/24 12:00 Temperature Pulse Rate 53 L 53 L Respiratory Rate Blood Pressure Pulse Oximetry Oxygen Delivery Room Air 11/08/24 12:10 Temperature Pulse Rate Respiratory Rate Blood Pressure Pulse Oximetry 97 Oxygen Delivery Room Air Intake/Output Intake/Output: Intake & Output 11/05/24 11/06/24 11/07/24 11/08/24 23:59 23:59 23:59 23:59 Intake Total 240 970 490 Output Total 800 200 Balance 240 170 290 Meds/Results Medications: Active Medications Generic Name Dose Route Start Last Admin Trade Name Freq PRN Reason Stop Dose Admin Acetaminophen 650 mg 11/06/24 14:12 Acetaminophen 325 Mg Tablet PO Q4H PRN Mild Pain (1-3) or Fever Hydrocodone Bitart/Acetaminophen 1 tab 11/06/24 14:12 Hydrocodone/Acetaminophen (*Crx) 5-325 Mg Tablet PO Q4H PRN Pain Rated 4-6 Apixaban 10 mg 11/08/24 09:00 11/08/24 09:06 Apixaban 5 Mg Tablet PO 10 mg Q12HR KARL Administration Aspirin 81 mg 11/07/24 09:00 11/08/24 09:04 Aspirin 81 Mg Enteric Tablet PO 81 mg QAM KARL Administration Atorvastatin Calcium 40 mg 11/07/24 09:00 11/08/24 09:04 Atorvastatin 40 Mg Tablet PO 40 mg DAILY KARL Administration Clopidogrel Bisulfate 75 mg 11/07/24 09:00 11/08/24 09:04 Clopidogrel Bisulfate 75 Mg Tablet PO 75 mg QAM KARL Administration Morphine Sulfate 2 mg 11/06/24 14:12 Morphine Sulfate (*Crx) 2 Mg/Ml Inj IV PUSH Q2H PRN Pain Rated 7-10 Ondansetron HCl 4 mg 11/06/24 14:12 Ondansetron Inj 4 Mg/2 Ml Vial IV PUSH Q4H PRN Nausea Radiology Results: ITS Impressions Head CT 11/06/24 12:52 Impression: No intracranial hemorrhage, mass, or acute infarct. Atrophy and chronic white matter changes, as above. Case discussed with Dr. Torres at 12:52 PM on 11/06/2024. Head/Neck CTA 11/06/24 13:07 IMPRESSION: Unremarkable CTA of the head and neck. No evidence of cerebral artery aneurysm, stenosis or mass. Complete opacification of the right maxillary sinus. Correlate clinically for acute sinusitis. *REFERENCES: NASCET CRITERIA: The degree of internal carotid artery (ICA) stenosis is based on NASCET criteria. Normal is no stenosis. Mild is less than 50% stenosis. Moderate is 50-69% stenosis. Severe is 70-99% stenosis. Total occlusion is no detectable patent lumen. Chest X-Ray 11/06/24 14:14 IMPRESSION: Fibrotic changes in the right upper and left lower lobe. No acute lung lesion seen Brain MRI 11/07/24 16:10 IMPRESSION: 1. Multiple small acute infarcts in the left frontal and parietal lobes consistent with sharp emboli in the left middle cerebral artery vascular disease effusion. Labs Labs: Laboratory Results - last 24 hr 11/08/24 06:29 WBC 9.4 RBC 4.84 Hgb 14.5 Hct 44.1 MCV 91.1 MCH 30.0 MCHC 32.9 RDW 13.7 Plt Count 274 MPV 8.8 Sodium 136 L Potassium 4.4 Chloride 107 Carbon Dioxide 20 L Anion Gap 9 BUN 19 Creatinine 1.31 H Estim Creat Clear Calc 40 Estimated GFR 53 L Glucose 90 Calcium 9.4 Quality VTE Prophylaxis VTE prophylaxis: mechanical ordered
[2024-11-08] MEDS: ACETAMINOPHEN 325 MG TABLET 650 MG PO (18:00)
--- NOTE | 2024-11-08 18:50 | P.PNNEUR_ITS ---
Progress Note: A&P Assessment and Plan (1) Left acute arterial ischemic stroke, MCA (middle cerebral artery): Code(s): I63.512 - Cerebral infarction due to unspecified occlusion or stenosis of left middle cerebral artery Status: Acute Plan appearance suggestive of a embolization and echocardiogram has raise possibility of shunt. The patient has been started on Eliquis and hence I would suggest to discontinue aspirin and Plavix may continue the Lipitor. A cardiology consultation should be considered since the patient may require a RAY since his echocardiogram was not quite clear with regard to his shunt. Patient should be monitored. Physical therapy should continue. Subjective Date/time seen: 11/08/24 18:50 Interval history: The patient is the 79 years old Afro-[place] male with history of new onset right-sided weakness. He is being evaluated by physical therapist when I came to see her. He continues to have some difficulty with speech and weakness in the right upper and lower limb. No other additional new symptoms reported. MRI of the brain has shown multiple infarcts in the left hemisphere suggestive of possible embolization. An echocardiogram has raise possibility of shunt however this was not clearly defined. The patient is in regular sinus rhythm. The now the patient has been started on Eliquis but is also on Lipitor aspirin and Plavix. Review of Systems Review of Systems: Patient denies any other additional symptoms. He is able to swallow and understand given commands for most part. However his speech remains unclear. Exam Narrative: Fully conscious alert has moderate dysarthria. At times he seems to have to some difficulty understanding the given commands. There is a mild right facial weakness. No tongue deviation. Mild weakness of the right upper and lower limb power grade 3-4/5 no additional findings. Objective Data Vital Signs Vital Signs: Vital Signs - 24 hr 11/07/24 20:00 11/07/24 20:00 11/07/24 21:27 Temperature 97.7 F Pulse Rate 65 70 65 Respiratory Rate 16 16 Blood Pressure 123/39 L Pulse Oximetry 96 96 Oxygen Delivery Room Air 11/08/24 00:00 11/08/24 04:00 11/08/24 06:00 Temperature 98.2 F Pulse Rate 61 63 60 Respiratory Rate 16 Blood Pressure 127/54 L Pulse Oximetry 98 Oxygen Delivery 11/08/24 08:00 11/08/24 09:00 11/08/24 12:00 Temperature Pulse Rate 53 L 53 L Respiratory Rate Blood Pressure Pulse Oximetry Oxygen Delivery Room Air 11/08/24 12:10 11/08/24 14:00 11/08/24 16:00 Temperature 98.1 F Pulse Rate 58 L 63 Respiratory Rate 18 Blood Pressure 133/50 L Pulse Oximetry 97 99 Oxygen Delivery Room Air Intake/Output Intake/Output: Intake & Output 11/05/24 11/06/24 11/07/24 11/08/24 23:59 23:59 23:59 23:59 Intake Total 820 309 1960 Output Total 800 1280 Balance 240 170 130 Meds/Results Medications: Active Medications Generic Name Dose Route Start Last Admin Trade Name Freq PRN Reason Stop Dose Admin Acetaminophen 650 mg 11/06/24 14:12 11/08/24 18:00 Acetaminophen 325 Mg Tablet PO 650 mg Q4H PRN Administration Mild Pain (1-3) or Fever Hydrocodone Bitart/Acetaminophen 1 tab 11/06/24 14:12 Hydrocodone/Acetaminophen (*Crx) 5-325 Mg Tablet PO Q4H PRN Pain Rated 4-6 Apixaban 10 mg 11/08/24 09:00 11/08/24 09:06 Apixaban 5 Mg Tablet PO 10 mg Q12HR KARL Administration Aspirin 81 mg 11/07/24 09:00 11/08/24 09:04 Aspirin 81 Mg Enteric Tablet PO 81 mg QAM KARL Administration Atorvastatin Calcium 40 mg 11/07/24 09:00 11/08/24 09:04 Atorvastatin 40 Mg Tablet PO 40 mg DAILY KARL Administration Clopidogrel Bisulfate 75 mg 11/07/24 09:00 11/08/24 09:04 Clopidogrel Bisulfate 75 Mg Tablet PO 75 mg QAM KARL Administration Morphine Sulfate 2 mg 11/06/24 14:12 Morphine Sulfate (*Crx) 2 Mg/Ml Inj IV PUSH Q2H PRN Pain Rated 7-10 Ondansetron HCl 4 mg 11/06/24 14:12 Ondansetron Inj 4 Mg/2 Ml Vial IV PUSH Q4H PRN Nausea Radiology Results: ITS Impressions Head CT 11/06/24 12:52 Impression: No intracranial hemorrhage, mass, or acute infarct. Atrophy and chronic white matter changes, as above. Case discussed with Dr. Torres at 12:52 PM on 11/06/2024. Head/Neck CTA 11/06/24 13:07 IMPRESSION: Unremarkable CTA of the head and neck. No evidence of cerebral artery aneurysm, stenosis or mass. Complete opacification of the right maxillary sinus. Correlate clinically for acute sinusitis. *REFERENCES: NASCET CRITERIA: The degree of internal carotid artery (ICA) stenosis is based on NASCET criteria. Normal is no stenosis. Mild is less than 50% stenosis. Moderate is 50-69% stenosis. Severe is 70-99% stenosis. Total occlusion is no detectable patent lumen. Chest X-Ray 11/06/24 14:14 IMPRESSION: Fibrotic changes in the right upper and left lower lobe. No acute lung lesion seen Brain MRI 11/07/24 16:10 IMPRESSION: 1. Multiple small acute infarcts in the left frontal and parietal lobes consistent with sharp emboli in the left middle cerebral artery vascular disease effusion. Labs Labs: Laboratory Results - last 24 hr 11/08/24 06:29 WBC 9.4 RBC 4.84 Hgb 14.5 Hct 44.1 MCV 91.1 MCH 30.0 MCHC 32.9 RDW 13.7 Plt Count 274 MPV 8.8 Sodium 136 L Potassium 4.4 Chloride 107 Carbon Dioxide 20 L Anion Gap 9 BUN 19 Creatinine 1.31 H Estim Creat Clear Calc 40 Estimated GFR 53 L Glucose 90 Calcium 9.4
[2024-11-09] VITALS (16 sets, daily range): BP systolic 106–163; BP diastolic 52–73; PULSE 56–79; RESP 10–19; TEMP 36.2–36.6; O2SAT 97–100
[2024-11-09 08:17] LABS: Hematocrit 45.9 % (42.0-52.0); Hemoglobin 15.0 g/dL (14.0-18.0); Immature Granulocyte Percent A 0.5 % (0-0.5); Lymphocytes Absolute Auto 2.02 K/mm3 (0.9-3.2); Mean Corpuscular HGB Conc 32.7 g/dl (32-36); Mean Corpuscular Hemoglobin 29.4 pg (26-34); Mean Corpuscular Volume 90.0 fl (80-100); Nucleated Red Blood Cells Absolute Auto 0.000 K/mm3 (0.0-0.012); Nucleated Red Blood Cells Perc 0.0 % (0.0-0.2); Platelet Count Result 289 k/mm3 (150-375); Red Blood Count 5.10 M/mm3 (4.6-6.20); White Blood Count 8.3 K/mm3 (4.5-10.0)
[2024-11-09 08:53] LABS: Alanine Aminotransferase 19 U/L (6-50); Albumin Level 3.9 g/dL (3.5-5.1); Alkaline Phosphatase 168 U/L (38-126); Anion Gap 10 mmol/L (4-12); Aspartate Amino Transferase 38 U/L (17-59); Bilirubin,Total 0.5 mg/dL (0.2-1.3); Blood Urea Nitrogen 19 mg/dL (9-20); Calcium 9.4 mg/dL (8.4-10.2); Carbon Dioxide 21 mmol/L (22-30); Chloride 106 mmol/L (98-107); Estimated CRCL calculation 42 ml/min; Estimated Glomerular Filt Rate 56; Glucose 88 mg/dL (65-110); Potassium 4.3 mmol/L (3.4-5.0); Sodium 137 mmol/L (137-145); Total Protein 8.0 g/dL (6.3-8.2)
--- NOTE | 2024-11-09 11:37 | P.CONCA_ITS ---
Assessment and Plan Assessment and plan (1) Acute CVA (cerebrovascular accident): Code(s): I63.9 - Cerebral infarction, unspecified Status: Acute Assessment and Plan: Proceed with RAY. History of Present Illness History of Present Illness Consult date/time: 11/09/24 11:37 Requesting physician: Adelfo Siegel MD Consult reason: Other (RAY) Reason For Visit: CVA Narrative: We are consulted for RAY. Hugo is an 79 year old male who is admitted with an acute stroke. Echocardiogram showed possible extracardiac shunt with delayed transit of bubbles. Review of Systems 2 Cardiovascular: Cardiovascular: Reports as per [facility] Past Medical History Medical History Left acute arterial ischemic stroke, MCA (middle cerebral artery) Arthritis Kidney stones Hernia GERD (gastroesophageal reflux disease) Myocardial infarction Surgical History Surgical History History of heart artery stent (~2003) Family History Family History Sibling Diabetes mellitus Mother Hypertension Social History Social History Smoking status: Current every day smoker Alcohol intake: former Substance use: never Do You Feel Safe in your Home?: Yes Lack of Transportation: YES Lack of Food: Never True Current Housing: I Have Housing Concerned About Future Housing: No Difficulty Paying Gas/Electric Bills: No Difficulty Paying for Meds: No Currently Unemployed: No Education: Don't Know Difficulty w/ Childcare or Family Care: No Spiritual care concerns: No Meds Home Medications and Allergies Home Medications ?Medication ?Instructions ?Recorded ?Confirmed ?Type No Home Medications 11/06/24 11/06/24 History Allergies Allergy/AdvReac Type Severity Reaction Status Date / Time No Known Allergies Allergy Verified 11/06/24 17:16 Vital Signs Vital Signs - 24 hr 11/08/24 12:00 11/08/24 12:10 11/08/24 14:00 Temperature 36.7 C Pulse Rate 53 L 58 L Respiratory Rate 18 Blood Pressure 133/50 L Pulse Oximetry 97 99 Oxygen Delivery Room Air Oxygen Flow Rate 11/08/24 16:00 11/08/24 20:00 11/08/24 20:00 Temperature Pulse Rate 63 63 69 Respiratory Rate 18 Blood Pressure Pulse Oximetry 99 Oxygen Delivery Room Air Oxygen Flow Rate 11/08/24 22:00 11/08/24 23:18 11/09/24 00:00 Temperature 36.2 C L Pulse Rate 61 58 L Respiratory Rate 20 Blood Pressure 133/54 L Pulse Oximetry 99 99 Oxygen Delivery Room Air Oxygen Flow Rate 11/09/24 04:00 11/09/24 06:00 11/09/24 08:00 Temperature 36.2 C L Pulse Rate 56 L 58 L 60 Respiratory Rate 16 Blood Pressure 139/53 L Pulse Oximetry 99 Oxygen Delivery Oxygen Flow Rate 11/09/24 10:35 11/09/24 11:36 Temperature Pulse Rate 65 Respiratory Rate 19 Blood Pressure 147/56 H Pulse Oximetry 100 Oxygen Delivery Room Air Nasal Cannula Oxygen Flow Rate 2 Exam 2 Const: General: comfortable and no acute distress HENMT: Mouth: Yes moist mucous membranes Eyes: General: appearance normal, both eyes and all related structures S clera: sclerae normal Resp: Effort & Inspection: normal respiratory effort Cardio: Rate: regular rate Rhythm: regular rhythm Skin: General skin exam: normal color Psych: Mental Status: mental status grossly normal Affect: normal affect Results Labs and Meds 11/09/24 07:44 11/09/24 07:44 Lab results: Cardiac Enzymes 11/09/24 Range/Units 07:44 AST 38 (17-59) U/L CBC 11/09/24 Range/Units 07:44 WBC 8.3 (4.5-10.0) K/mm3 RBC 5.10 (4.6-6.20) M/mm3 Hgb 15.0 (14.0-18.0) g/dL Hct 45.9 (42.0-52.0) % Plt Count 289 (150-375) k/mm3 Lymph # (Auto) 2.02 (0.9-3.2) K/mm3 [place] # (Auto) 0.9 H (0.1-0.6) K/mm3 Eos # (Auto) 0.3 (0-0.3) K/mm3 Baso # (Auto) 0.0 (0.0-0.1) K/mm3 Comprehensive Metabolic Panel 11/09/24 Range/Units 07:44 Sodium 137 (137-145) mmol/L Potassium 4.3 (3.4-5.0) mmol/L Chloride 106 (98-107) mmol/L Carbon Dioxide 21 L (22-30) mmol/L BUN 19 (9-20) mg/dL Creatinine 1.24 (0.7-1.3) mg/dL Glucose 88 (65-110) mg/dL Calcium 9.4 (8.4-10.2) mg/dL AST 38 (17-59) U/L ALT 19 (6-50) U/L Alkaline Phosphatase 168 H (38-126) U/L Total Protein 8.0 (6.3-8.2) g/dL Albumin 3.9 (3.5-5.1) g/dL Intake and Output 11/08/24 11/09/24 11/09/24 23:59 07:59 15:59 Intake Total 820 200 Output Total 1080 Balance -260 200 Intake: Oral 820 200 Output: Urine 1080 Other: # Unmeasured Voids 1 Number of Bowel Movements Today 1
--- NOTE | 2024-11-09 11:39 | P.SEDATION_ITS ---
Moderate Sedation Note-Pt Data Patient Data Diagnosis: CVA Present Complaint: CVA Procedure to be performed/Plan: Transesophageal Echocardiogram Allergies Allergy/AdvReac Type Severity Reaction Status Date / Time No Known Allergies Allergy Verified 11/06/24 17:16 Home Medications ?Medication ?Instructions ?Recorded ?Confirmed ?Type No Home Medications 11/06/24 11/06/24 History Current Medications: Active Medications Acetaminophen (Acetaminophen 325 Mg Tablet) 650 mg PO Q4H PRN PRN Reason: Mild Pain (1-3) or Fever Last Admin: 11/08/24 18:00 Dose: 650 mg Hydrocodone Bitart/Acetaminophen (Hydrocodone/Acetaminophen (*Crx) 5-325 Mg Tablet) 1 tab PO Q4H PRN PRN Reason: Pain Rated 4-6 Apixaban (Apixaban 5 Mg Tablet) 10 mg PO Q12HR KARL Last Admin: 11/08/24 21:18 Dose: 10 mg Atorvastatin Calcium (Atorvastatin 40 Mg Tablet) 40 mg PO DAILY KARL Last Admin: 11/08/24 09:04 Dose: 40 mg Morphine Sulfate (Morphine Sulfate (*Crx) 2 Mg/Ml Inj) 2 mg IV PUSH Q2H PRN PRN Reason: Pain Rated 7-10 Ondansetron HCl (Ondansetron Inj 4 Mg/2 Ml Vial) 4 mg IV PUSH Q4H PRN PRN Reason: Nausea Sedation/Anesthesia: No previous sedation/anesthesia problems (including family history). [facility] Past Medical History Medical History Left acute arterial ischemic stroke, MCA (middle cerebral artery) Arthritis Kidney stones Hernia GERD (gastroesophageal reflux disease) Myocardial infarction Surgical History Surgical History History of heart artery stent (~2003) Family History Family History Sibling Diabetes mellitus Mother Hypertension Social History Social History Smoking status: Current every day smoker Alcohol intake: former Substance use: never Do You Feel Safe in your Home?: Yes Lack of Transportation: YES Lack of Food: Never True Current Housing: I Have Housing Concerned About Future Housing: No Difficulty Paying Gas/Electric Bills: No Difficulty Paying for Meds: No Currently Unemployed: No Education: Don't Know Difficulty w/ Childcare or Family Care: No Spiritual care concerns: No Mod Sed Physical Exam Physical Exam Pre Procedural Exam: Normal: Appearance, Lungs, Heart Rate, Heart Rhythm, Extremities and Skin Hours since solid foods: 12 Hours since liquid intake: 8 Mallampati Classification: class III Internal Medicine - PN: Obj Da Vital Signs Vital Signs: Vital Signs - 24 hr 11/08/24 12:00 11/08/24 12:10 11/08/24 14:00 Temperature 36.7 C Pulse Rate 53 L 58 L Respiratory Rate 18 Blood Pressure 133/50 L Pulse Oximetry 97 99 Oxygen Delivery Room Air Oxygen Flow Rate 11/08/24 16:00 11/08/24 20:00 11/08/24 20:00 Temperature Pulse Rate 63 63 69 Respiratory Rate 18 Blood Pressure Pulse Oximetry 99 Oxygen Delivery Room Air Oxygen Flow Rate 11/08/24 22:00 11/08/24 23:18 11/09/24 00:00 Temperature 36.2 C L Pulse Rate 61 58 L Respiratory Rate 20 Blood Pressure 133/54 L Pulse Oximetry 99 99 Oxygen Delivery Room Air Oxygen Flow Rate 11/09/24 04:00 11/09/24 06:00 11/09/24 08:00 Temperature 36.2 C L Pulse Rate 56 L 58 L 60 Respiratory Rate 16 Blood Pressure 139/53 L Pulse Oximetry 99 Oxygen Delivery Oxygen Flow Rate 11/09/24 10:35 11/09/24 11:36 Temperature Pulse Rate 65 Respiratory Rate 19 Blood Pressure 147/56 H Pulse Oximetry 100 Oxygen Delivery Room Air Nasal Cannula Oxygen Flow Rate 2 Intake/Output Intake/Output: Intake & Output 11/06/24 11/07/24 11/08/24 11/09/24 23:59 23:59 23:59 23:59 Intake Total 096 752 2739 200 Output Total 800 1280 Balance 240 170 130 200 Meds/Results Medications: Active Medications Generic Name Dose Route Start Last Admin Trade Name Freq PRN Reason Stop Dose Admin Acetaminophen 650 mg 11/06/24 14:12 11/08/24 18:00 Acetaminophen 325 Mg Tablet PO 650 mg Q4H PRN Administration Mild Pain (1-3) or Fever Hydrocodone Bitart/Acetaminophen 1 tab 11/06/24 14:12 Hydrocodone/Acetaminophen (*Crx) 5-325 Mg Tablet PO Q4H PRN Pain Rated 4-6 Apixaban 10 mg 11/08/24 09:00 11/08/24 21:18 Apixaban 5 Mg Tablet PO 10 mg Q12HR KARL Administration Atorvastatin Calcium 40 mg 11/07/24 09:00 11/08/24 09:04 Atorvastatin 40 Mg Tablet PO 40 mg DAILY KARL Administration Morphine Sulfate 2 mg 11/06/24 14:12 Morphine Sulfate (*Crx) 2 Mg/Ml Inj IV PUSH Q2H PRN Pain Rated 7-10 Ondansetron HCl 4 mg 11/06/24 14:12 Ondansetron Inj 4 Mg/2 Ml Vial IV PUSH Q4H PRN Nausea Radiology Results: ITS Impressions Head CT 11/06/24 12:52 Impression: No intracranial hemorrhage, mass, or acute infarct. Atrophy and chronic white matter changes, as above. Case discussed with Dr. Torres at 12:52 PM on 11/06/2024. Head/Neck CTA 11/06/24 13:07 IMPRESSION: Unremarkable CTA of the head and neck. No evidence of cerebral artery aneurysm, stenosis or mass. Complete opacification of the right maxillary sinus. Correlate clinically for acute sinusitis. *REFERENCES: NASCET CRITERIA: The degree of internal carotid artery (ICA) stenosis is based on NASCET criteria. Normal is no stenosis. Mild is less than 50% stenosis. Moderate is 50-69% stenosis. Severe is 70-99% stenosis. Total occlusion is no detectable patent lumen. Chest X-Ray 11/06/24 14:14 IMPRESSION: Fibrotic changes in the right upper and left lower lobe. No acute lung lesion seen Brain MRI 11/07/24 16:10 IMPRESSION: 1. Multiple small acute infarcts in the left frontal and parietal lobes consistent with sharp emboli in the left middle cerebral artery vascular disease effusion. Labs 11/09/24 07:44 11/09/24 07:44 Labs: Laboratory Results - last 24 hr 11/09/24 07:44 WBC 8.3 RBC 5.10 Hgb 15.0 Hct 45.9 MCV 90.0 MCH 29.4 MCHC 32.7 RDW 13.5 Plt Count 289 MPV 8.9 Immature Gran % (Auto) 0.5 Neut % (Auto) 60.5 Lymph % (Auto) 24.3 [place] % (Auto) 11.1 H Eos % (Auto) 3.1 Baso % (Auto) 0.5 Lymph # (Auto) 2.02 [place] # (Auto) 0.9 H Eos # (Auto) 0.3 Baso # (Auto) 0.0 Abs Immat Gran (auto) 0.04 H Absolute Neuts (auto) 5.0 Absolute Nucleated RBC 0.000 Nucleated RBC % 0.0 Sodium 137 Potassium 4.3 Chloride 106 Carbon Dioxide 21 L Anion Gap 10 BUN 19 Creatinine 1.24 Estim Creat Clear Calc 42 Estimated GFR 56 L Glucose 88 Calcium 9.4 Total Bilirubin 0.5 AST 38 ALT 19 Alkaline Phosphatase 168 H Total Protein 8.0 Albumin 3.9 ASA Classification/Sedation ASA Classification/Sedation ASA Class: III Emergent: No Risks: Risks, benefits and alternatives explained and patient/family accepted plan for sedation. Patient re-evaluated immediately prior to sedation.
[2024-11-09] MEDS: MIDAZOLAM HCL (*CRX) 2 MG/2 ML VIAL IV PUSH (11:42)
[2024-11-09] MEDS: fentaNYL CITRATE INJ (*CRX) 100 MCG/2 ML VIAL 50 MCG IV PUSH (11:42)
[2024-11-09] MEDS: fentaNYL CITRATE INJ (*CRX) 100 MCG/2 ML VIAL 25 MCG IV PUSH (11:45)
[2024-11-09] MEDS: MIDAZOLAM HCL (*CRX) 2 MG/2 ML VIAL 1 MG IV PUSH (11:45)
--- NOTE | 2024-11-09 11:57 | WPDTEECHO ---
RAY TransEsophageal Echocardiogram Date of procedure: 11/09/24 Procedure Type: Date Of Procedure: 11/09/2024 Brief History Of Present Illness: Patient is an 79 year old male with acute CVA referred for RAY for acute CVA, possible interatrial shunt. Procedure In Detail: Patient was monitored throughout the study with telemetry, oxygen saturation, end-tidal CO2 monitoring, blood pressure, heart rate, and respirations.?The posterior hypopharynx was then locally anesthetized using repeated administration of Hurricaine spray. After local anesthetic of the posterior hypopharynx was achieved and the oral bite block placed, moderate sedation was administered.?After confirmation of adequate moderate sedation, the transesophageal echocardiogram probe was advanced through the oral bite block into the posterior hypopharynx and into the esophagus easily and without complication.?Multiple, multiplanar echocardiographic images were obtained in multiple standard re-projections.?Color-flow Doppler were utilized in conjunction with this study.?At the conclusion of the study, the transesophageal echocardiogram probe was removed easily and without complication. The patient tolerated the procedure well without difficulty.?Patient was in sinus rhythm throughout the study. Moderate Sedation / Anesthesia Administration: Procedure / sedation start time: 11:42 Procedure / sedation end time: 11:52 Total of IV Versed 3mg and Fentanyl 75mg was administered by RN. FINDINGS: LEFT VENTRICLE: Size and systolic function were within normal limits. No LV thrombus. RIGHT VENTRICLE:?Size and systolic function within normal limits. LEFT ATRIUM: Normal size. RIGHT ATRIUM: Appears enlarged. INTERATRIAL SEPTUM: Bubble study shows a mild right to left shunt that is delayed, consistent with an intrapulmonary shunt. MITRAL VALVE: Mitral valve is anatomically normal with preserved leaflet excursion and mild regurgitation. AORTIC VALVE: The aortic valve was an anatomically normal 3 leaflet structure. 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 Moderate aortic regurgitation. TRICUSPID VALVE: The tricuspid valve is anatomically normal with normal leaflet excursion ..? No mobile elements identified. PULMONIC VALVE: Grossly normal. LEFT ATRIAL APPENDAGE: Anatomically normal structure with prominent pectinate muscles without thrombus or vegetation identified. PERICARDIUM: The pericardium was anatomically normal without significant pericardial effusion. ? AORTA: Mild atherosclerotic disease. CONCLUSION: Bubble study shows a mild right to left shunt that is delayed, consistent with an intrapulmonary shunt. Complications: None
[2024-11-09] MEDS: ATORVASTATIN 40 MG TABLET PO (13:19)
[2024-11-09] MEDS: APIXABAN 5 MG TABLET 10 MG PO ×2 (13:19→21:43)
--- NOTE | 2024-11-09 14:21 | P.PNIM_ITS ---
Progress Note: A&P Assessment and Plan (1) CVA (cerebral vascular accident): Code(s): I63.9 - Cerebral infarction, unspecified Status: Suspected Plan FAcial droop, R sided weakness CVA CT and CTA unremarkable MRI showed :1. Multiple small acute infarcts in the left frontal and parietal lobes consistent with sharp emboli in the left middle cerebral artery vascular disease effusion. echo:Agitated saline study showed delayed transit of bubbles from [id number] suggestive of extracardiac shunt. Added eliquis. consulted cardiology team. Echo with delayed transit of bubbles from right to left suggestive of extracardiac shunt Underwent RAY consistent with intrapulmonary shunt continue ASA, Plavix and statin Pt/OT Neurology team on board continue to monitor CXR: Fibrotic changes in the right upper and left lower lobe. No acute lung lesion seen follow with PCp as outpatient HTN permissive HTN GUI vs CKD3a Renally adjust meds continue to monitor Mild hyponatremia monitor for now Diet: Heart healthy GI Prophylaxis: Not currently indicated DVT Prophylaxis: SCDs IV fluids: None Lines/Tubes: Peripheral IV Code Status: Full code Subjective Date/time seen: 11/09/24 14:21 Interval history: Chart reviewed. Doing okay no new complaints. Going for RAY today. Review of Systems Review of Systems: All systems reviewed & are unremarkable except as noted in HPI and below Exam Narrative: GENERAL: Well-appearing, well-nourished, and in no acute distress. HEAD: Normocephalic, atraumatic. ENT: Mucous membranes moist. CHEST: Clear to auscultation. No respiratory distress. HEART: Regular rate and rhythm. Normal peripheral pulses. ABDOMEN: Soft, nontender, nondistended. EXTREMITIES: Right arm and leg weakness. No edema. SKIN: Warm, dry, no rash. NEURO: Right-sided weakness in the arms/legs/face. Expressive aphasia Alert and oriented x3. PSYCH: Normal mood and affect. Objective Data Vital Signs Vital Signs: Vital Signs - 24 hr 11/08/24 16:00 11/08/24 20:00 11/08/24 20:00 Temperature Pulse Rate 63 63 69 Respiratory Rate 18 Blood Pressure Pulse Oximetry 99 Oxygen Delivery Room Air Oxygen Flow Rate 11/08/24 22:00 11/08/24 23:18 11/09/24 00:00 Temperature 97.2 F L Pulse Rate 61 58 L Respiratory Rate 20 Blood Pressure 133/54 L Pulse Oximetry 99 99 Oxygen Delivery Room Air Oxygen Flow Rate 11/09/24 04:00 11/09/24 06:00 11/09/24 08:00 Temperature 97.2 F L Pulse Rate 56 L 58 L 60 Respiratory Rate 16 Blood Pressure 139/53 L Pulse Oximetry 99 Oxygen Delivery Oxygen Flow Rate 11/09/24 10:35 11/09/24 11:36 11/09/24 11:45 Temperature Pulse Rate 65 69 Respiratory Rate 19 18 Blood Pressure 147/56 H 163/73 H Pulse Oximetry 100 100 Oxygen Delivery Room Air Nasal Cannula Nasal Cannula Oxygen Flow Rate 2 2 11/09/24 11:50 11/09/24 11:55 11/09/24 12:00 Temperature Pulse Rate 68 65 66 Respiratory Rate 13 10 L 16 Blood Pressure 120/54 L 121/57 L 107/52 L Pulse Oximetry 97 97 97 Oxygen Delivery Nasal Cannula Room Air Room Air Oxygen Flow Rate 2 11/09/24 12:15 11/09/24 12:30 Temperature Pulse Rate 62 72 Respiratory Rate 14 18 Blood Pressure 106/61 139/69 Pulse Oximetry 97 100 Oxygen Delivery Room Air Room Air Oxygen Flow Rate Intake/Output Intake/Output: Intake & Output 11/06/24 11/07/24 11/08/24 11/09/24 23:59 23:59 23:59 23:59 Intake Total 535 211 0975 200 Output Total 800 1280 Balance 240 170 130 200 Meds/Results Medications: Active Medications Generic Name Dose Route Start Last Admin Trade Name Freq PRN Reason Stop Dose Admin Acetaminophen 650 mg 11/06/24 14:12 11/08/24 18:00 Acetaminophen 325 Mg Tablet PO 650 mg Q4H PRN Administration Mild Pain (1-3) or Fever Hydrocodone Bitart/Acetaminophen 1 tab 11/06/24 14:12 Hydrocodone/Acetaminophen (*Crx) 5-325 Mg Tablet PO Q4H PRN Pain Rated 4-6 Apixaban 10 mg 11/08/24 09:00 11/09/24 13:19 Apixaban 5 Mg Tablet PO 10 mg Q12HR KARL Administration Atorvastatin Calcium 40 mg 11/07/24 09:00 11/09/24 13:19 Atorvastatin 40 Mg Tablet PO 40 mg DAILY KARL Administration Morphine Sulfate 2 mg 11/06/24 14:12 Morphine Sulfate (*Crx) 2 Mg/Ml Inj IV PUSH Q2H PRN Pain Rated 7-10 Ondansetron HCl 4 mg 11/06/24 14:12 Ondansetron Inj 4 Mg/2 Ml Vial IV PUSH Q4H PRN Nausea Radiology Results: ITS Impressions Head CT 11/06/24 12:52 Impression: No intracranial hemorrhage, mass, or acute infarct. Atrophy and chronic white matter changes, as above. Case discussed with Dr. Torres at 12:52 PM on 11/06/2024. Head/Neck CTA 11/06/24 13:07 IMPRESSION: Unremarkable CTA of the head and neck. No evidence of cerebral artery aneurysm, stenosis or mass. Complete opacification of the right maxillary sinus. Correlate clinically for acute sinusitis. *REFERENCES: NASCET CRITERIA: The degree of internal carotid artery (ICA) stenosis is based on NASCET criteria. Normal is no stenosis. Mild is less than 50% stenosis. Moderate is 50-69% stenosis. Severe is 70-99% stenosis. Total occlusion is no detectable patent lumen. Chest X-Ray 11/06/24 14:14 IMPRESSION: Fibrotic changes in the right upper and left lower lobe. No acute lung lesion seen Brain MRI 11/07/24 16:10 IMPRESSION: 1. Multiple small acute infarcts in the left frontal and parietal lobes consistent with sharp emboli in the left middle cerebral artery vascular disease effusion. Labs Labs: Laboratory Results - last 24 hr 11/09/24 07:44 WBC 8.3 RBC 5.10 Hgb 15.0 Hct 45.9 MCV 90.0 MCH 29.4 MCHC 32.7 RDW 13.5 Plt Count 289 MPV 8.9 Immature Gran % (Auto) 0.5 Neut % (Auto) 60.5 Lymph % (Auto) 24.3 [place] % (Auto) 11.1 H Eos % (Auto) 3.1 Baso % (Auto) 0.5 Lymph # (Auto) 2.02 [place] # (Auto) 0.9 H Eos # (Auto) 0.3 Baso # (Auto) 0.0 Abs Immat Gran (auto) 0.04 H Absolute Neuts (auto) 5.0 Absolute Nucleated RBC 0.000 Nucleated RBC % 0.0 Sodium 137 Potassium 4.3 Chloride 106 Carbon Dioxide 21 L Anion Gap 10 BUN 19 Creatinine 1.24 Estim Creat Clear Calc 42 Estimated GFR 56 L Glucose 88 Calcium 9.4 Total Bilirubin 0.5 AST 38 ALT 19 Alkaline Phosphatase 168 H Total Protein 8.0 Albumin 3.9
--- NOTE | 2024-11-09 14:30 | PCOTNOTE ---
Patient is unavailable for OT session. Patient is with PT
[2024-11-10] VITALS (11 sets, daily range): BP systolic 108–137; BP diastolic 48–74; PULSE 56–84; RESP 16–18; TEMP 36–36.4; O2SAT 96–100
[2024-11-10 08:22] LABS: Hematocrit 47.0 % (42.0-52.0); Hemoglobin 15.4 g/dL (14.0-18.0); Immature Granulocyte Percent A 0.5 % (0-0.5); Lymphocytes Absolute Auto 2.36 K/mm3 (0.9-3.2); Mean Corpuscular HGB Conc 32.8 g/dl (32-36); Mean Corpuscular Hemoglobin 29.5 pg (26-34); Mean Corpuscular Volume 90.0 fl (80-100); Nucleated Red Blood Cells Absolute Auto 0.000 K/mm3 (0.0-0.012); Nucleated Red Blood Cells Perc 0.0 % (0.0-0.2); Platelet Count Result 285 k/mm3 (150-375); Red Blood Count 5.22 M/mm3 (4.6-6.20); White Blood Count 9.3 K/mm3 (4.5-10.0)
[2024-11-10 08:35] LABS: Alanine Aminotransferase 23 U/L (6-50); Albumin Level 4.1 g/dL (3.5-5.1); Alkaline Phosphatase 168 U/L (38-126); Anion Gap 10 mmol/L (4-12); Aspartate Amino Transferase 40 U/L (17-59); Bilirubin,Total 0.5 mg/dL (0.2-1.3); Blood Urea Nitrogen 19 mg/dL (9-20); Calcium 9.5 mg/dL (8.4-10.2); Carbon Dioxide 21 mmol/L (22-30); Chloride 106 mmol/L (98-107); Estimated CRCL calculation 40 ml/min; Estimated Glomerular Filt Rate 53; Glucose 81 mg/dL (65-110); Potassium 4.5 mmol/L (3.4-5.0); Sodium 137 mmol/L (137-145); Total Protein 8.4 g/dL (6.3-8.2)
[2024-11-10] MEDS: ATORVASTATIN 40 MG TABLET PO (09:20)
[2024-11-10] MEDS: APIXABAN 5 MG TABLET 10 MG PO ×2 (09:20→21:18)
--- NOTE | 2024-11-10 15:14 | PM.IMPN ---
Progress Note: A&P Assessment and Plan (1) CVA (cerebral vascular accident): Code(s): I63.9 - Cerebral infarction, unspecified Status: Suspected Plan FAcial droop, R sided weakness CVA CT and CTA unremarkable MRI showed :1. Multiple small acute infarcts in the left frontal and parietal lobes consistent with sharp emboli in the left middle cerebral artery vascular disease effusion. echo:Agitated saline study showed delayed transit of bubbles from [id number] suggestive of extracardiac shunt. Added eliquis. consulted cardiology team. Echo with delayed transit of bubbles from right to left suggestive of extracardiac shunt Underwent RAY consistent with intrapulmonary shunt continue ASA, Plavix and statin. Since Eliquis started aspirin Plavix has been stopped. Pt/OT Neurology team on board continue to monitor CXR: Fibrotic changes in the right upper and left lower lobe. No acute lung lesion seen follow with PCp as outpatient Intrapulmonary shunt as noted in RAY. Further workup with CT PE along with DVT scan ultrasound will be done. Discussed with Pulmonary was consulted as well. Currently on anticoagulation which will be continued Rule out underlying hepatic disease. Will also get CT abdomen HTN permissive HTN GUI vs CKD3a Renally adjust meds continue to monitor Mild hyponatremia monitor for now Diet: Heart healthy GI Prophylaxis: Not currently indicated DVT Prophylaxis: SCDs IV fluids: None Lines/Tubes: Peripheral IV Code Status: Full code Subjective Date/time seen: 11/10/24 15:14 Interval history: No overnight events. Working with speech therapist. No other complaints. Review of Systems Review of Systems: All systems reviewed & are unremarkable except as noted in HPI and below Exam Narrative: GENERAL: Well-appearing, well-nourished, and in no acute distress. HEAD: Normocephalic, atraumatic. ENT: Mucous membranes moist. CHEST: Clear to auscultation. No respiratory distress. HEART: Regular rate and rhythm. Normal peripheral pulses. ABDOMEN: Soft, nontender, nondistended. EXTREMITIES: Right arm and leg weakness. No edema. SKIN: Warm, dry, no rash. NEURO: Right-sided weakness in the arms/legs/face. Expressive aphasia Alert and oriented x3. PSYCH: Normal mood and affect. Objective Data Vital Signs Vital Signs: Vital Signs - 24 hr 11/09/24 16:00 11/09/24 20:00 11/09/24 21:43 Temperature Pulse Rate 73 79 Respiratory Rate Blood Pressure Pulse Oximetry 98 Oxygen Delivery Room Air 11/09/24 22:00 11/10/24 00:04 11/10/24 04:01 Temperature 97.6 F Pulse Rate 71 56 L 76 Respiratory Rate 18 Blood Pressure 111/61 Pulse Oximetry 98 Oxygen Delivery 11/10/24 06:00 11/10/24 08:00 11/10/24 08:30 Temperature 96.8 F L 97.2 F L Pulse Rate 56 L 76 73 Respiratory Rate 18 17 Blood Pressure 109/52 L 108/48 L Pulse Oximetry 99 100 Oxygen Delivery 11/10/24 09:20 11/10/24 12:00 Temperature Pulse Rate 68 Respiratory Rate Blood Pressure Pulse Oximetry Oxygen Delivery Room Air Intake/Output Intake/Output: Intake & Output 11/07/24 11/08/24 11/09/24 11/10/24 23:59 23:59 23:59 23:59 Intake Total 970 1410 320 350 Output Total 800 1280 300 400 Balance 170 130 20 -50 Meds/Results Medications: Active Medications Generic Name Dose Route Start Last Admin Trade Name Freq PRN Reason Stop Dose Admin Acetaminophen 650 mg 11/06/24 14:12 11/08/24 18:00 Acetaminophen 325 Mg Tablet PO 650 mg Q4H PRN Administration Mild Pain (1-3) or Fever Hydrocodone Bitart/Acetaminophen 1 tab 11/06/24 14:12 Hydrocodone/Acetaminophen (*Crx) 5-325 Mg Tablet PO Q4H PRN Pain Rated 4-6 Apixaban 10 mg 11/08/24 09:00 11/10/24 09:20 Apixaban 5 Mg Tablet PO 10 mg Q12HR KARL Administration Atorvastatin Calcium 40 mg 11/07/24 09:00 11/10/24 09:20 Atorvastatin 40 Mg Tablet PO 40 mg DAILY KARL Administration Morphine Sulfate 2 mg 11/06/24 14:12 Morphine Sulfate (*Crx) 2 Mg/Ml Inj IV PUSH Q2H PRN Pain Rated 7-10 Ondansetron HCl 4 mg 11/06/24 14:12 Ondansetron Inj 4 Mg/2 Ml Vial IV PUSH Q4H PRN Nausea Radiology Results: ITS Impressions Head CT 11/06/24 12:52 Impression: No intracranial hemorrhage, mass, or acute infarct. Atrophy and chronic white matter changes, as above. Case discussed with Dr. Torres at 12:52 PM on 11/06/2024. Head/Neck CTA 11/06/24 13:07 IMPRESSION: Unremarkable CTA of the head and neck. No evidence of cerebral artery aneurysm, stenosis or mass. Complete opacification of the right maxillary sinus. Correlate clinically for acute sinusitis. *REFERENCES: NASCET CRITERIA: The degree of internal carotid artery (ICA) stenosis is based on NASCET criteria. Normal is no stenosis. Mild is less than 50% stenosis. Moderate is 50-69% stenosis. Severe is 70-99% stenosis. Total occlusion is no detectable patent lumen. Chest X-Ray 11/06/24 14:14 IMPRESSION: Fibrotic changes in the right upper and left lower lobe. No acute lung lesion seen Brain MRI 11/07/24 16:10 IMPRESSION: 1. Multiple small acute infarcts in the left frontal and parietal lobes consistent with sharp emboli in the left middle cerebral artery vascular disease effusion. Labs Labs: Laboratory Results - last 24 hr 11/10/24 08:02 WBC 9.3 RBC 5.22 Hgb 15.4 Hct 47.0 MCV 90.0 MCH 29.5 MCHC 32.8 RDW 13.7 Plt Count 285 MPV 8.6 Immature Gran % (Auto) 0.5 Neut % (Auto) 61.4 Lymph % (Auto) 25.5 [place] % (Auto) 9.5 H Eos % (Auto) 2.7 Baso % (Auto) 0.4 Lymph # (Auto) 2.36 [place] # (Auto) 0.9 H Eos # (Auto) 0.3 Baso # (Auto) 0.0 Abs Immat Gran (auto) 0.05 H Absolute Neuts (auto) 5.7 Absolute Nucleated RBC 0.000 Nucleated RBC % 0.0 Sodium 137 Potassium 4.5 Chloride 106 Carbon Dioxide 21 L Anion Gap 10 BUN 19 Creatinine 1.30 Estim Creat Clear Calc 40 Estimated GFR 53 L Glucose 81 Calcium 9.5 Total Bilirubin 0.5 AST 40 ALT 23 Alkaline Phosphatase 168 H Total Protein 8.4 H Albumin 4.1
[2024-11-11] VITALS (10 sets, daily range): BP systolic 116–144; BP diastolic 54–71; PULSE 61–82; RESP 18; TEMP 36.2–37; O2SAT 97–99
[2024-11-11] MEDS: ATORVASTATIN 40 MG TABLET PO (08:37)
[2024-11-11] MEDS: APIXABAN 5 MG TABLET 10 MG PO (08:37)
--- NOTE | 2024-11-11 10:00 | P.CONPL_ITS ---
Assessment and Plan Assessment and plan (1) Lung mass: Code(s): R91.8 - Other nonspecific abnormal finding of lung field Status: Acute Assessment and Plan: Patient is a current smoker with 38 pack year tobacco use. On 11/10/2024: CT scan of the chest shows severe apical predominant paraseptal emphysema with mild apical predominant centrilobular emphysema. 5.2 x 2.4 cm spiculated right upper lobe mass. Right hilar and mediastinal enlarged lymph nodes. patient is a been anticoagulated for his current ischemic stroke and his last dose of Plavix 75 was on 11/08/2024 at 9:04 a.m.. His last dose of Eliquis was on 11/11/2024 at 8:37 a.m.. Plan: I have explained to the patient and his daughter, Senia [phone], on the telephone the benefits and risks of a CT-guided biopsy. Patient and family will discuss amongst themselves their wishes for further workup of this lung mass. The patient has severe apical predominant paraseptal emphysema increasing his risk of pneumothorax. Today is Tuesday and the radiologist who performs the biopsy is not in house. Will attempt to discuss if there are any supraclavicular lymph nodes that can be more safely biopsied and whether or not a CT-guided biopsy can be performed at [facility] with them on 11/12/2024. Will discuss with hospitalist a shorter acting anticoagulant, like lovenox, in case this biopsy is desired by the family and the patient and in case this biopsy can be performed at [facility]. Discussed with Dr. Pozo, will follow with you. (2) Pulmonary AV (arteriovenous) fistula: Code(s): I28.0 - Arteriovenous fistula of pulmonary vessels Status: Acute Assessment and Plan: 11/06/2024: Echocardiogram with bubble study demonstrated difficult study with poor windows. Normal biventricular size and systolic function. Agitated saline study showed delayed transit of bubbles from right to left suggestive of extracardiac shunt. 11/08/2024: MRI showed multiple left frontal and parietal lobe infarcts. Aspirin and Plavix were changed to Eliquis 10 p.o. b.i.d.. 11/09/2024: RAY demonstrated: normal LV and RV size and function. No LV thrombus. Normal left atrium. Enlarged right atrium. Bubble study shows a mild right to left shunt that is delayed, consistent with intrapulmonary shunt. Mild mitral regurg. 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 Moderate AR. No tricuspid regurg mobile elements. Left atrial appendage without thrombus or vegetation. He states that he never has had hemoptysis. He denies any nose bleeds or sores in his mouth. He denies any rashes. He denies shortness of breath or dyspnea when going from a laying to upright or seated to upright position, thus there is no platypnea. His room air saturations in the supine position were 99%. I stood him up at the bedside and he did not get shortness of breath when standing and after 2 minutes his standing saturations on room air were 99%, thus ther is no orthodeoxia. Etiology of pulmonary right to left shunt includes: pulmonary arteriovenous malformation, lung cancer, doubt hereditary hemorrhagic telaniectasia, or hepatopulmonary syndrome. Plan: Will discuss with Radiology on 11/12/2024 optimal imaging with high- resolution CT scan or standard CT scan with contrast to assess for pulmonary arterial venous malformation and to determine the size of the feeding vessel which would guide need for embolization. (3) COPD (chronic obstructive pulmonary disease): Code(s): J44.9 - Chronic obstructive pulmonary disease, unspecified Status: Acute Assessment and Plan: Patient is a current smoker from age 29 to this admission at 3/4 pack per day for a total of 38 pack years. I have no PFTs. Patient was exposed to secondhand smoke from his father and is currently exposed to secondhand smoke now from his family. At baseline the patient tells me he can walk 3/4 of a block. Overall he says he has no respiratory limitations in his activities of daily living. He is on no inhaled medicines. He is on no oxygen. He denies a chronic cough. He states that he produces phlegm 2 to 3 times a day with no hemoptysis. 11/06/2024 white blood cell count 10.8, eosinophils 0.6=65/uL. 11/10/2024: CT scan of the chest shows severe apical predominant paraseptal emphysema with mild apical predominant centrilobular emphysema. 11/11/24: He denies fever, chills, rigors, cough, phlegm production or hemoptysis. His room air saturations in the supine position were 99%. Plan: Currently the patient is asymptomatic with no evidence of pulmonary infection or COPD exacerbation. I will check an ABG to assess for hypercarbic respiratory failure. I will check an alpha 1 anti trypsin genotype and level on 11/12/2024. At this time he is asymptomatic and I will not initiate any bronchodilator therapy. History of Present Illness History of Present Illness Consult date: 11/11/24 Chief complaint: CVA Narrative: 11/11/2024: This is a new pulmonary consult for intrapulmonary shunt. 79-year-old with a history of coronary artery disease status post stent in 2003, GERD, and tobacco use. Patient presented to the hospital on 11/06/2024 with right facial weakness, right arm weakness, right leg weakness and slurred speech. His NIH score was 9. He was a and O x3. He is outside the window for thrombolysis. In the emergency department his blood pressure is 130/56, heart rate 89, respirations 24, 96% on room air. White blood cell count 10.8, creatinine 1.49. Chest x- ray showed right upper lobe scarring with an elevated left hemidiaphragm. CT scan of the head showed no intra cerebral hemorrhage or masses. No acute infarct. CT angiogram of the neck was normal regarding his circulation. echocardiogram with bubble study demonstrated difficult study with poor windows. Normal biventricular size and systolic function. Agitated saline study showed delayed transit of bubbles from right to left suggestive of extracardiac shunt. Patient was started on aspirin and Plavix and admitted to the hospital. 11/08/2024: MRI showed multiple left frontal and parietal lobe infarcts. Aspirin and Plavix were changed to Eliquis 10 p.o. b.i.d.. 11/09/2024: RAY demonstrated: normal LV and RV size and function. No LV thrombus. Normal left atrium. Enlarged right atrium. Bubble study shows a mild right to left shunt that is delayed, consistent with intrapulmonary shunt. Mild mitral regurg. 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 Moderate AR. No tricuspid regurg mobile elements. Left atrial appendage without thrombus or vegetation. 11/10/2024: CT scan of the chest shows severe apical predominant paraseptal emphysema with mild apical predominant centrilobular emphysema. 5.2 x 2.4 cm spiculated right upper lobe mass. Right hilar and mediastinal enlarged lymph nodes. Lower extremity Dopplers negative for DVT. 11/11/2024: Overall the patient tells me he feels he is getting a little better from his stroke. Patient tells me his name and spells his last name, knows he is in [facility], states that his November 10, 2024, knows that Mayelin is the president [facility], names a pen, names pen cap but not able to name the clip of the pen cap. He is able to give me details of his history. At baseline the patient tells me he can walk 3/4 of a block. Overall he says he has no respiratory limitations in his activities of daily living. He is on no inhaled medicines. He is on no oxygen. He denies a chronic cough. He states that he produces phlegm 2 to 3 times a day with no hemoptysis. He denies any nose bleeds or sores in his mouth. He denies any rashes. He denies shortness of breath or dyspnea when going from a laying to upright or seated to upright position. Patient is a current smoker from age 29 to this admission at 3/4 pack per day for a total of 38 pack years. Patient was exposed to secondhand smoke from his father and is currently exposed to secondhand smoke now from his family. He denies fever, chills, rigors, cough, phlegm production or hemoptysis. His room air saturations in the supine position were 99%. I stood him up at the bedside and he did not get shortness of breath when standing and after 2 minutes his standing saturations on room air were 99%. white blood cell count 9.3, creatinine 1.30. patient is currently on Eliquis 10 mg p.o. q.day last dose 11/11 at 8:37 a.m.. DATA: 11/10/24: EXAMINATION: CT diagnostic chest wo con INDICATION: Assess for pulmonary arterial venous malformations COMPARISON: None. FINDINGS: CHEST: Thoracic aorta: No significant dilation or calcification. Lung parenchyma and airways: Spiculated 5.2 x 2.4 cm right upper lobe mass. Severe emphysematous change. Thoracic inlet, axillae and chest wall: No thyroid or soft tissue mass. No axillary lymphadenopathy. Mediastinum: Right suprahilar scarring and hilar retraction. Multiple enlarged right hilar and mediastinal lymph nodes. Heart and pericardium: Normal heart size. No pericardial effusion. Coronary artery calcifications: Moderate. Pleura: No effusion or mass. Upper abdomen: No significant finding. Thoracic bones: No acute osseous finding in the chest. T6 vertebral body hemangioma. IMPRESSION: 5.2 cm right upper lobe mass, concerning for malignancy. Right hilar and mediastinal lymph node involvement is suspected. Consider biopsy and/or PET/CT. Pulmonary artery malformations cannot be adequately assessed without contrast. 11/09/24: RAY FINDINGS: LEFT VENTRICLE: Size and systolic function were within normal limits. No LV thrombus. RIGHT VENTRICLE:?Size and systolic function within normal limits. LEFT ATRIUM: Normal size. RIGHT ATRIUM: Appears enlarged. INTERATRIAL SEPTUM: Bubble study shows a mild right to left shunt that is delayed, consistent with an intrapulmonary shunt. MITRAL VALVE: Mitral valve is anatomically normal with preserved leaflet excursion and mild regurgitation. AORTIC VALVE: The aortic valve was an anatomically normal 3 leaflet structure. 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 Moderate aortic regurgitation. TRICUSPID VALVE: The tricuspid valve is anatomically normal with normal leaflet excursion ..? No mobile elements identified. PULMONIC VALVE: Grossly normal. LEFT ATRIAL APPENDAGE: Anatomically normal structure with prominent pectinate muscles without thrombus or vegetation identified. PERICARDIUM: The pericardium was anatomically normal without significant pericardial effusion. ? AORTA: Mild atherosclerotic disease. CONCLUSION: Bubble study shows a mild right to left shunt that is delayed, consistent with an intrapulmonary shunt. 11/08/24: XR chest 1V portable Ordering provider: Miguel Torres MD History: 79 years Male with . cva . Comparison: None. FINDINGS: MEDIASTINUM: The cardiac silhouette is not enlarged. LUNGS: No infiltrates, effusions or pneumothorax. Fibrotic changes are seen in the right upper lobe and left lower lobe. OTHER: No free air under the diaphragm. IMPRESSION: Fibrotic changes in the right upper and left lower lobe. No acute lung lesion seen. 11/07/24: EXAMINATION: MR brain/brain stem wo/w con INDICATION: Right-sided weakness COMPARISON: Head CT dated 11/06/2024 FINDINGS: There are multiple small regions of restricted diffusion with mild associated increased T2 signal in the left frontal and parietal lobes consistent with acute infarcts, likely shower of emboli in the vascular distribution of the left middle cerebral artery. No intracranial hemorrhage or abnormal intracranial mass lesion. There are additional scattered areas of nonspecific increased T2- weighted signal intensity in the cerebral white matter, predominantly involving the deep and periventricular white matter. There are no intraparenchymal signal abnormalities seen on the other pulse sequences. The ventricles are symmetric and normal in size. There are no abnormal extra-axial fluid collections. Flow voids are seen in the cerebral arteries on the T2-weighted sequences consistent with their expected patency. There is mucosal thickening in the left ethmoid and maxillary sinuses, the latter with additional central mucous nearly filling the left maxillary sinus. Visualized orbits and soft tissues are unremarkable. There are no areas of abnormal enhancement on the post contrast images. IMPRESSION: 1. Multiple small acute infarcts in the left frontal and parietal lobes consistent with sharp emboli in the left middle cerebral artery vascular disease effusion. 11/06/24: Summary 1. Technically difficult study with very poor acoustic windows and limited views. 2. There is normal biventricular size and systolic function. 3. Agitated saline study showed delayed transit of bubbles from [id number] suggestive of extracardiac shunt. Right Ventricle The right ventricle is normal in size and systolic function. Left Atria The left atrium is normal size. Right Atria The right atrium is normal size. Atrial Septum Agitated saline study showed delayed transit of bubbles from [id number] suggestive of extracardiac shunt. Review of Systems 2 Constitutional: Constitutional: Reports no additional constitutional complaints Eyes: Eyes: Reports no additional eye complaints ENT: Reports system reviewed and no additional complaints, except as documented Cardiovascular: Cardiovascular: Reports no additional cardiovascular complaints Respiratory: Respiratory: Reports no additional respiratory complaints Gastrointestinal: Gastrointestinal: Reports no additional gastrointestinal complaints Musculoskeletal: Musculoskeletal: Reports no additional musculoskeletal complaints Neurologic: Reports system reviewed and no additional complaints, except as documented Psychiatric: Psychiatric: Reports no additional psychiatric complaints Endocrine: Endocrine: Reports no additional endocrine complaints Hematologic/Lymphatic: Hematologic/Lymphatic: Reports no additional hematologic/lymphatic complaints Allergic/Immunologic: Allergic/Immunologic: Reports no additional allergic/immunologic complaints [facility] Past Medical History Medical History Left acute arterial ischemic stroke, MCA (middle cerebral artery) Arthritis Kidney stones Hernia GERD (gastroesophageal reflux disease) Myocardial infarction Surgical History Surgical History History of heart artery stent (~2003) Family History Family History Sibling Diabetes mellitus Mother Hypertension Social History Social History Smoking status: Current every day smoker Alcohol intake: former Substance use: never Do You Feel Safe in your Home?: Yes Lack of Transportation: YES Lack of Food: Never True Current Housing: I Have Housing Concerned About Future Housing: No Difficulty Paying Gas/Electric Bills: No Difficulty Paying for Meds: No Currently Unemployed: No Education: Don't Know Difficulty w/ Childcare or Family Care: No Spiritual care concerns: No Meds Home Medications and Allergies Home Medications ?Medication ?Instructions ?Recorded ?Confirmed ?Type No Home Medications 11/06/24 11/06/24 History Allergies Allergy/AdvReac Type Severity Reaction Status Date / Time No Known Allergies Allergy Verified 11/06/24 17:16 Vital Signs Vital Signs - 24 hr 11/10/24 12:00 11/10/24 14:00 11/10/24 16:00 Temperature 36.0 C L Pulse Rate 68 68 80 Respiratory Rate 16 Blood Pressure 110/48 L Pulse Oximetry 98 Oxygen Delivery 11/10/24 20:01 11/10/24 21:18 11/10/24 22:00 Temperature 36.4 C Pulse Rate 66 84 Respiratory Rate 18 Blood Pressure 137/74 Pulse Oximetry 96 96 Oxygen Delivery Room Air 11/11/24 00:05 11/11/24 04:01 11/11/24 06:00 Temperature 36.6 C Pulse Rate 66 61 82 Respiratory Rate 18 Blood Pressure 144/71 H Pulse Oximetry 98 Oxygen Delivery Exam 2 Const: General: cooperative, healthy appearing and comfortable O rientation/consciousness: oriented to person, oriented to place and oriented to time Other: Dysarthric speech but this has improved according to the patient and the daughter HENMT: Head: normal to inspection Ears: hearing grossly normal bilaterally Other: no oral telangiectasia or hemangiomas Eyes: General: appearance normal, both eyes and all related structures Neck: Neck: normal visual inspection Chest: Chest palpation & inspection: normal inspection of the chest Resp: Effort & Inspection: normal respiratory effort and able to speak in complete sentences Auscultation: no crackles, no rales, no rhonchi, no wheezes and diminished lung sounds Cardio: Jugular venous distension: no JVD GI: Inspection: normal to inspection GI Palp: No abdominal tenderness Skin: General skin exam: normal color Other: no spider angiomas or telangiectasia Neuro: General: oriented to person, oriented to place and oriented to time Other: right facial droop, weak right upper extremity and right lower extremity. Extrem: General: normal to inspection Psych: Appearance: grossly normal Results Laboratory Findings 11/10/24 08:02 11/10/24 08:02 ABG, PT/INR, D-dimer: PT/INR, D-dimer PT 14.0 Seconds (11.1-14.7) 11/06/24 12:44 INR 1.1 11/06/24 12:44 Abnormal lab findings: Abnormal Labs 11/06/24 11/06/24 11/07/24 12:44 21:31 06:20 WBC 10.8 H Immature Gran % (Auto) 0.6 H Lymph % (Auto) 17.0 L [place] % (Auto) 10.3 H [place] # (Auto) 0.9 H 1.0 H Abs Immat Gran (auto) 0.06 H 0.05 H Absolute Neuts (auto) 7.9 H Sodium Chloride 108 H Carbon Dioxide 20 L 20 L Creatinine 1.49 H 1.36 H Estimated GFR 45 L 50 L Glucose 115 H Hemoglobin A1c 5.9 H Alkaline Phosphatase 179 H 169 H Total Protein 8.9 H Ur Specific [place] > 1.045 H Urine RBC 3-5 H 11/08/24 11/09/24 11/10/24 06: 07:44 08:02 WBC Immature Gran % (Auto) Lymph % (Auto) [place] % (Auto) 11.1 H 9.5 H [place] # (Auto) 0.9 H 0.9 H Abs Immat Gran (auto) 0.04 H 0.05 H Absolute Neuts (auto) Sodium 136 L Chloride Carbon Dioxide 20 L 21 L 21 L Creatinine 1.31 H Estimated GFR 53 L 56 L 53 L Glucose Hemoglobin A1c Alkaline Phosphatase 168 H 168 H Total Protein 8.4 H Ur Specific [place] Urine RBC Diagnostic Findings Additional studies: ITS Impressions Head CT 11/06/24 12:52 Impression: No intracranial hemorrhage, mass, or acute infarct. Atrophy and chronic white matter changes, as above. Case discussed with Dr. Torres at 12:52 PM on 11/06/2024. Head/Neck CTA 11/06/24 13:07 IMPRESSION: Unremarkable CTA of the head and neck. No evidence of cerebral artery aneurysm, stenosis or mass. Complete opacification of the right maxillary sinus. Correlate clinically for acute sinusitis. *REFERENCES: NASCET CRITERIA: The degree of internal carotid artery (ICA) stenosis is based on NASCET criteria. Normal is no stenosis. Mild is less than 50% stenosis. Moderate is 50-69% stenosis. Severe is 70-99% stenosis. Total occlusion is no detectable patent lumen. Chest X-Ray 11/06/24 14:14 IMPRESSION: Fibrotic changes in the right upper and left lower lobe. No acute lung lesion seen Brain MRI 11/07/24 16:10 IMPRESSION: 1. Multiple small acute infarcts in the left frontal and parietal lobes consistent with sharp emboli in the left middle cerebral artery vascular disease effusion. Chest CT 11/10/24 19:40 IMPRESSION: 5.2 cm right upper lobe mass, concerning for malignancy. Right hilar and mediastinal lymph node involvement is suspected. Consider biopsy and/or PET/CT. Pulmonary artery malformations cannot be adequately assessed without contrast. Upper Quadrant Ultrasound 11/11/24 08:55 Impression: Diffuse fatty infiltration of the liver. Venous Doppler Study 11/11/24 08:55 Impression: No evidence of deep vein thrombosis involving either lower extremity.
[2024-11-11 11:09] LABS: Alveolar/Arterial O2 Gradient 86.0 mmHg; Fractional Inspired Oxygen 21 %; HCO3 ABG 23.0 mEq/l (22.0-26.0); Oxygen Content ABG 21.1 %vol (16.0-22.0); Oxygen Saturation ABG 96.1 % (95.0-100.0); PCO2 ABG 34.9 mmHg (35.0-45.0); PO2 ABG 79.1 mmHg (80.0-100.0); PO2 FiO2 Ratio Arterial Blood 3.77 %
[2024-11-11 11:15] LABS: Modified Allen's Test Pass; Site Drawn LEFT RADIAL
--- NOTE | 2024-11-11 14:13 | PM.IMPN ---
Progress Note: A&P Assessment and Plan (1) CVA (cerebral vascular accident): Code(s): I63.9 - Cerebral infarction, unspecified Status: Suspected Plan FAcial droop, R sided weakness CVA CT and CTA unremarkable MRI showed :1. Multiple small acute infarcts in the left frontal and parietal lobes consistent with sharp emboli in the left middle cerebral artery vascular disease effusion. echo:Agitated saline study showed delayed transit of bubbles from [id number] suggestive of extracardiac shunt. Added eliquis. consulted cardiology team. Echo with delayed transit of bubbles from right to left suggestive of extracardiac shunt Underwent RAY consistent with intrapulmonary shunt continue ASA, Plavix and statin. Since Eliquis started aspirin Plavix has been stopped. Pt/OT Neurology team on board continue to monitor CXR: Fibrotic changes in the right upper and left lower lobe. No acute lung lesion seen follow with PCp as outpatient Intrapulmonary shunt as noted in RAY. Further workup with CT chest revealed 5.2 cm right upper lobe mass concerning for malignancy. Right hilar and mediastinal lymph node involvement is suspected. Pulmonary on board. Discussed biopsy which they will think about. DVT venous duplex scan for lower extremities were negative. Currently on anticoagulation which will be continued. In case biopsy is planned will switch his Eliquis to Lovenox for now Will need to discuss with Radiology in terms of ruling out pulmonary arteriovenous malformations what kind of CT scan will need to be performed. Rule out underlying hepatic disease. Right upper quadrant ultrasound with fatty liver change. HTN permissive HTN GUI vs CKD3a Renally adjust meds continue to monitor Mild hyponatremia monitor for now Diet: Heart healthy GI Prophylaxis: Not currently indicated DVT Prophylaxis: SCDs IV fluids: None Lines/Tubes: Peripheral IV Code Status: Full code Subjective Date/time seen: 11/11/24 14:13 Interval history: No overnight events. No new complaints. Discussed with the Pulmonary. Review of Systems Review of Systems: All systems reviewed & are unremarkable except as noted in HPI and below Exam Narrative: GENERAL: Well-appearing, well-nourished, and in no acute distress. HEAD: Normocephalic, atraumatic. ENT: Mucous membranes moist. CHEST: Clear to auscultation. No respiratory distress. HEART: Regular rate and rhythm. Normal peripheral pulses. ABDOMEN: Soft, nontender, nondistended. EXTREMITIES: Right arm and leg weakness. No edema. SKIN: Warm, dry, no rash. NEURO: Right-sided weakness in the arms/legs/face. Expressive aphasia Alert and oriented x3. PSYCH: Normal mood and affect. Objective Data Vital Signs Vital Signs: Vital Signs - 24 hr 11/10/24 16:00 11/10/24 20:01 11/10/24 21:18 Temperature Pulse Rate 80 66 Respiratory Rate Blood Pressure Pulse Oximetry 96 Oxygen Delivery Room Air 11/10/24 22:00 11/11/24 00:05 11/11/24 04:01 Temperature 97.6 F Pulse Rate 84 66 61 Respiratory Rate 18 Blood Pressure 137/74 Pulse Oximetry 96 Oxygen Delivery 11/11/24 06:00 11/11/24 08:00 Temperature 98 F Pulse Rate 82 Respiratory Rate 18 Blood Pressure 144/71 H Pulse Oximetry 98 Oxygen Delivery Room Air Intake/Output Intake/Output: Intake & Output 11/08/24 11/09/24 11/10/24 11/11/24 23:59 23:59 23:59 23:59 Intake Total 1410 320 350 300 Output Total 1280 300 750 700 Balance 130 20 -400 -400 Meds/Results Medications: Active Medications Generic Name Dose Route Start Last Admin Trade Name Freq PRN Reason Stop Dose Admin Acetaminophen 650 mg 11/06/24 14:12 11/08/24 18:00 Acetaminophen 325 Mg Tablet PO 650 mg Q4H PRN Administration Mild Pain (1-3) or Fever Hydrocodone Bitart/Acetaminophen 1 tab 11/06/24 14:12 Hydrocodone/Acetaminophen (*Crx) 5-325 Mg Tablet PO Q4H PRN Pain Rated 4-6 Apixaban 10 mg 11/08/24 09:00 11/11/24 08:37 Apixaban 5 Mg Tablet PO 10 mg Q12HR KARL Administration Atorvastatin Calcium 40 mg 11/07/24 09:00 11/11/24 08:37 Atorvastatin 40 Mg Tablet PO 40 mg DAILY KARL Administration Morphine Sulfate 2 mg 11/06/24 14:12 Morphine Sulfate (*Crx) 2 Mg/Ml Inj IV PUSH Q2H PRN Pain Rated 7-10 Ondansetron HCl 4 mg 11/06/24 14:12 Ondansetron Inj 4 Mg/2 Ml Vial IV PUSH Q4H PRN Nausea Radiology Results: ITS Impressions Head CT 11/06/24 12:52 Impression: No intracranial hemorrhage, mass, or acute infarct. Atrophy and chronic white matter changes, as above. Case discussed with Dr. Torres at 12:52 PM on 11/06/2024. Head/Neck CTA 11/06/24 13:07 IMPRESSION: Unremarkable CTA of the head and neck. No evidence of cerebral artery aneurysm, stenosis or mass. Complete opacification of the right maxillary sinus. Correlate clinically for acute sinusitis. *REFERENCES: NASCET CRITERIA: The degree of internal carotid artery (ICA) stenosis is based on NASCET criteria. Normal is no stenosis. Mild is less than 50% stenosis. Moderate is 50-69% stenosis. Severe is 70-99% stenosis. Total occlusion is no detectable patent lumen. Chest X-Ray 11/06/24 14:14 IMPRESSION: Fibrotic changes in the right upper and left lower lobe. No acute lung lesion seen Brain MRI 11/07/24 16:10 IMPRESSION: 1. Multiple small acute infarcts in the left frontal and parietal lobes consistent with sharp emboli in the left middle cerebral artery vascular disease effusion. Chest CT 11/10/24 19:40 IMPRESSION: 5.2 cm right upper lobe mass, concerning for malignancy. Right hilar and mediastinal lymph node involvement is suspected. Consider biopsy and/or PET/CT. Pulmonary artery malformations cannot be adequately assessed without contrast. Upper Quadrant Ultrasound 11/11/24 08:55 Impression: Diffuse fatty infiltration of the liver. Venous Doppler Study 11/11/24 08:55 Impression: No evidence of deep vein thrombosis involving either lower extremity. Labs Labs: Laboratory Results - last 24 hr 11/11/24 11:03 Puncture Site Left radial ABG pH 7.436 ABG pCO2 34.9 L ABG pO2 79.1 L ABG PO2/FiO2 Ratio 3.77 ABG HCO3 23.0 ABG O2 Saturation 96.1 ABG O2 Content 21.1 ABG Base Excess -0.6 A-a Gradient 86.0 Oxyhemoglobin 95.1 Total Hemoglobin 15.8 O2 Delivery Device Room air O2 Liters/Min Not Reportable FiO2 21
[2024-11-11] MEDS: ENOXAPARIN 80 MG/0.8 ML SYRINGE 70 MG SUB-Q (21:24)
[2024-11-12] VITALS (10 sets, daily range): BP systolic 119–133; BP diastolic 55–61; PULSE 60–70; RESP 18; TEMP 36.3–36.6; O2SAT 88–100
[2024-11-12 06:42] LABS: Hematocrit 46.9 % (42.0-52.0); Hemoglobin 15.3 g/dL (14.0-18.0); Immature Granulocyte Percent A 0.8 % (0-0.5); Lymphocytes Absolute Auto 2.17 K/mm3 (0.9-3.2); Mean Corpuscular HGB Conc 32.6 g/dl (32-36); Mean Corpuscular Hemoglobin 29.7 pg (26-34); Mean Corpuscular Volume 91.1 fl (80-100); Nucleated Red Blood Cells Absolute Auto 0.000 K/mm3 (0.0-0.012); Nucleated Red Blood Cells Perc 0.0 % (0.0-0.2); Platelet Count Result 279 k/mm3 (150-375); Red Blood Count 5.15 M/mm3 (4.6-6.20); White Blood Count 7.9 K/mm3 (4.5-10.0)
[2024-11-12 06:57] LABS: Alanine Aminotransferase 25 U/L (6-50); Albumin Level 4.0 g/dL (3.5-5.1); Alkaline Phosphatase 173 U/L (38-126); Anion Gap 8 mmol/L (4-12); Aspartate Amino Transferase 38 U/L (17-59); Bilirubin,Total 0.4 mg/dL (0.2-1.3); Blood Urea Nitrogen 20 mg/dL (9-20); Calcium 9.5 mg/dL (8.4-10.2); Carbon Dioxide 21 mmol/L (22-30); Chloride 107 mmol/L (98-107); Estimated CRCL calculation 38 ml/min; Estimated Glomerular Filt Rate 50; Glucose 93 mg/dL (65-110); Magnesium 2.2 mg/dL (1.6-2.3); Potassium 4.3 mmol/L (3.4-5.0); Sodium 136 mmol/L (137-145); Total Protein 8.1 g/dL (6.3-8.2)
[2024-11-12] MEDS: ENOXAPARIN 80 MG/0.8 ML SYRINGE 70 MG SUB-Q ×2 (08:14→21:28)
[2024-11-12] MEDS: ATORVASTATIN 40 MG TABLET PO (08:15)
--- NOTE | 2024-11-12 13:00 | P.PNIM_ITS ---
Progress Note: A&P Assessment and Plan (1) CVA (cerebral vascular accident): Code(s): I63.9 - Cerebral infarction, unspecified Status: Suspected Plan FAcial droop, R sided weakness CVA CT and CTA unremarkable MRI showed :1. Multiple small acute infarcts in the left frontal and parietal lobes consistent with sharp emboli in the left middle cerebral artery vascular disease effusion. echo:Agitated saline study showed delayed transit of bubbles from [id number] suggestive of extracardiac shunt. Added eliquis. consulted cardiology team. Echo with delayed transit of bubbles from right to left suggestive of extracardiac shunt Underwent RAY consistent with intrapulmonary shunt continue ASA, Plavix and statin. Since Eliquis started aspirin Plavix has been stopped. Pt/OT Neurology team on board continue to monitor CXR: Fibrotic changes in the right upper and left lower lobe. No acute lung lesion seen follow with PCp as outpatient Intrapulmonary shunt as noted in RAY. Further workup with CT chest revealed 5.2 cm right upper lobe mass concerning for malignancy. Right hilar and mediastinal lymph node involvement is suspected. Pulmonary on board. Discussed biopsy which did decides to forgo at this time. DVT venous duplex scan for lower extremities were negative. Currently on anticoagulation which will be continued. In case biopsy is planned will switch his Eliquis to Lovenox for now Will need to discuss with Radiology in terms of ruling out pulmonary arteriovenous malformations what kind of CT scan will need to be performed. Discussed with Radiology. They suggested doing CTA PE protocol. Will order this. Rule out underlying hepatic disease. Right upper quadrant ultrasound with fatty liver change. HTN permissive HTN GUI vs CKD3a Renally adjust meds continue to monitor Mild hyponatremia monitor for now Diet: Heart healthy GI Prophylaxis: Not currently indicated DVT Prophylaxis: SCDs IV fluids: None Lines/Tubes: Peripheral IV Code Status: Full code Subjective Date/time seen: 11/12/24 13:00 Interval history: No overnight events. Patient declines getting biopsy done. He states she discussed with the family yesterday per Review of Systems Review of Systems: All systems reviewed & are unremarkable except as noted in HPI and below Exam Narrative: GENERAL: Well-appearing, well-nourished, and in no acute distress. HEAD: Normocephalic, atraumatic. ENT: Mucous membranes moist. CHEST: Clear to auscultation. No respiratory distress. HEART: Regular rate and rhythm. Normal peripheral pulses. ABDOMEN: Soft, nontender, nondistended. EXTREMITIES: Right arm and leg weakness. No edema. SKIN: Warm, dry, no rash. NEURO: Right-sided weakness in the arms/legs/face. Expressive aphasia Alert and oriented x3. PSYCH: Normal mood and affect. Objective Data Vital Signs Vital Signs: Vital Signs - 24 hr 11/11/24 14:00 11/11/24 16:00 11/11/24 20:01 Temperature 97.1 F L Pulse Rate 61 78 67 Respiratory Rate 18 Blood Pressure 116/56 L Pulse Oximetry 99 Oxygen Delivery 11/11/24 21:24 11/11/24 22:00 11/12/24 00:04 Temperature 98.6 F Pulse Rate 64 64 Respiratory Rate 18 Blood Pressure 124/54 L Pulse Oximetry 97 97 Oxygen Delivery Room Air 11/12/24 04:00 11/12/24 06:00 11/12/24 08:00 Temperature 97.9 F Pulse Rate 60 66 Respiratory Rate 18 Blood Pressure 119/59 L Pulse Oximetry 88 L Oxygen Delivery Room Air Intake/Output Intake/Output: Intake & Output 11/09/24 11/10/24 11/11/24 11/12/24 23:59 23:59 23:59 23:59 Intake Total 320 350 540 540 Output Total 065 401 1128 400 Balance 20 -400 -760 140 Meds/Results Medications: Active Medications Generic Name Dose Route Start Last Admin Trade Name Freq PRN Reason Stop Dose Admin Acetaminophen 650 mg 11/06/24 14:12 11/08/24 18:00 Acetaminophen 325 Mg Tablet PO 650 mg Q4H PRN Administration Mild Pain (1-3) or Fever Hydrocodone Bitart/Acetaminophen 1 tab 11/06/24 14:12 Hydrocodone/Acetaminophen (*Crx) 5-325 Mg Tablet PO Q4H PRN Pain Rated 4-6 Apixaban 10 mg 11/08/24 09:00 11/11/24 08:37 Apixaban 5 Mg Tablet PO 10 mg Q12HR KARL Administration Atorvastatin Calcium 40 mg 11/07/24 09:00 11/12/24 08:15 Atorvastatin 40 Mg Tablet PO 40 mg DAILY KARL Administration Enoxaparin Sodium 70 mg 11/11/24 21:00 11/12/24 08:14 Enoxaparin 80 Mg/0.8 Ml Syringe SUB-Q 70 mg Q12HR KARL Administration Morphine Sulfate 2 mg 11/06/24 14:12 Morphine Sulfate (*Crx) 2 Mg/Ml Inj IV PUSH Q2H PRN Pain Rated 7-10 Ondansetron HCl 4 mg 11/06/24 14:12 Ondansetron Inj 4 Mg/2 Ml Vial IV PUSH Q4H PRN Nausea Radiology Results: ITS Impressions Head CT 11/06/24 12:52 Impression: No intracranial hemorrhage, mass, or acute infarct. Atrophy and chronic white matter changes, as above. Case discussed with Dr. Torres at 12:52 PM on 11/06/2024. Head/Neck CTA 11/06/24 13:07 IMPRESSION: Unremarkable CTA of the head and neck. No evidence of cerebral artery aneurysm, stenosis or mass. Complete opacification of the right maxillary sinus. Correlate clinically for acute sinusitis. *REFERENCES: NASCET CRITERIA: The degree of internal carotid artery (ICA) stenosis is based on NASCET criteria. Normal is no stenosis. Mild is less than 50% stenosis. Moderate is 50-69% stenosis. Severe is 70-99% stenosis. Total occlusion is no detectable patent lumen. Chest X-Ray 11/06/24 14:14 IMPRESSION: Fibrotic changes in the right upper and left lower lobe. No acute lung lesion seen Brain MRI 11/07/24 16:10 IMPRESSION: 1. Multiple small acute infarcts in the left frontal and parietal lobes consistent with sharp emboli in the left middle cerebral artery vascular disease effusion. Chest CT 11/10/24 19:40 IMPRESSION: 5.2 cm right upper lobe mass, concerning for malignancy. Right hilar and mediastinal lymph node involvement is suspected. Consider biopsy and/or PET/CT. Pulmonary artery malformations cannot be adequately assessed without contrast. Upper Quadrant Ultrasound 11/11/24 08:55 Impression: Diffuse fatty infiltration of the liver. Venous Doppler Study 11/11/24 08:55 Impression: No evidence of deep vein thrombosis involving either lower extremity. Labs Labs: Laboratory Results - last 24 hr 11/12/24 06:05 WBC 7.9 RBC 5.15 Hgb 15.3 Hct 46.9 MCV 91.1 MCH 29.7 MCHC 32.6 RDW 13.8 Plt Count 279 MPV 8.9 Immature Gran % (Auto) 0.8 H Neut % (Auto) 57.6 Lymph % (Auto) 27.4 [place] % (Auto) 11.1 H Eos % (Auto) 2.5 Baso % (Auto) 0.6 Lymph # (Auto) 2.17 [place] # (Auto) 0.9 H Eos # (Auto) 0.2 Baso # (Auto) 0.1 Abs Immat Gran (auto) 0.06 H Absolute Neuts (auto) 4.6 Absolute Nucleated RBC 0.000 Nucleated RBC % 0.0 Sodium 136 L Potassium 4.3 Chloride 107 Carbon Dioxide 21 L Anion Gap 8 BUN 20 Creatinine 1.36 H Estim Creat Clear Calc 38 Estimated GFR 50 L Glucose 93 Calcium 9.5 Magnesium 2.2 Total Bilirubin 0.4 AST 38 ALT 25 Alkaline Phosphatase 173 H Total Protein 8.1 Albumin 4.0
--- NOTE | 2024-11-12 15:17 | P.PNPL_ITS ---
Progress Note: A&P Assessment and Plan (1) Lung mass: Code(s): R91.8 - Other nonspecific abnormal finding of lung field Status: Acute Assessment and Plan: 11/11/24 : Patient is a current smoker with 38 pack year tobacco use. On 11/10/2024: CT scan of the chest shows severe apical predominant paraseptal emphysema with mild apical predominant centrilobular emphysema. 5.2 x 2.4 cm spiculated right upper lobe mass. Right hilar and mediastinal enlarged lymph nodes. patient is a been anticoagulated for his current ischemic stroke and his last dose of Plavix 75 was on 11/08/2024 at 9:04 a.m.. His last dose of Eliquis was on 11/11/2024 at 8:37 a.m.. Plan: I have explained to the patient and his daughter, Senia [phone], on the telephone the benefits and risks of a CT-guided biopsy. Patient and family will discuss amongst themselves their wishes for further workup of this lung mass. The patient has severe apical predominant paraseptal emphysema increasing his risk of pneumothorax. Today is Tuesday and the radiologist who performs the biopsy is not in house. Will attempt to discuss if there are any supraclavicular lymph nodes that can be more safely biopsied and whether or not a CT-guided biopsy can be performed at [facility] with them on 11/12/2024. Will discuss with hospitalist a shorter acting anticoagulant, like lovenox, in case this biopsy is desired by the family and the patient and in case this biopsy can be performed at [facility]. 11/12/24; He does not want a biopsy, and is not interested in seeing Rad Onc at this time for possible empiric radiation to the RUL mass. He can always change his mind later. (2) Pulmonary AV (arteriovenous) fistula: Code(s): I28.0 - Arteriovenous fistula of pulmonary vessels Status: Acute Assessment and Plan: 11/06/2024: Echocardiogram with bubble study demonstrated difficult study with poor windows. Normal biventricular size and systolic function. Agitated saline study showed delayed transit of bubbles from right to left suggestive of extracardiac shunt. 11/08/2024: MRI showed multiple left frontal and parietal lobe infarcts. Aspirin and Plavix were changed to Eliquis 10 p.o. b.i.d.. 11/09/2024: RAY demonstrated: normal LV and RV size and function. No LV thrombus. Normal left atrium. Enlarged right atrium. Bubble study shows a mild right to left shunt that is delayed, consistent with intrapulmonary shunt. Mild mitral regurg. 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 Moderate AR. No tricuspid regurg mobile elements. Left atrial appendage without thrombus or vegetation. He states that he never has had hemoptysis. He denies any nose bleeds or sores in his mouth. He denies any rashes. He denies shortness of breath or dyspnea when going from a laying to upright or seated to upright position, thus there is no platypnea. His room air saturations in the supine position were 99%. I stood him up at the bedside and he did not get shortness of breath when standing and after 2 minutes his standing saturations on room air were 99%, thus ther is no orthodeoxia. Etiology of pulmonary right to left shunt includes: pulmonary arteriovenous malformation, lung cancer, doubt hereditary hemorrhagic telangiectasia, or hepatopulmonary syndrome. Plan: Will discuss with Radiology on 11/12/2024 optimal imaging with high- resolution CT scan or standard CT scan with contrast to assess for pulmonary arterial venous malformation and to determine the size of the feeding vessel which would guide need for embolization. 11/12/24; Dr Pozo has discussed imaging study with radiology for additioanl avaluation. (3) COPD (chronic obstructive pulmonary disease): Code(s): J44.9 - Chronic obstructive pulmonary disease, unspecified Status: Acute Assessment and Plan: Patient is a current smoker from age 29 to this admission at 3/4 pack per day for a total of 38 pack years. I have no PFTs. Patient was exposed to secondhand smoke from his father and is currently exposed to secondhand smoke now from his family. At baseline the patient tells me he can walk 3/4 of a block. Overall he says he has no respiratory limitations in his activities of daily living. He is on no inhaled medicines. He is on no oxygen. He denies a chronic cough. He states that he produces phlegm 2 to 3 times a day with no hemoptysis. 11/06/2024 white blood cell count 10.8, eosinophils 0.6=65/uL. 11/10/2024: CT scan of the chest shows severe apical predominant paraseptal emphysema with mild apical predominant centrilobular emphysema. 11/11/24: He denies fever, chills, rigors, cough, phlegm production or hemoptysis. His room air saturations in the supine position were 99%. Plan: Currently the patient is asymptomatic with no evidence of pulmonary infection or COPD exacerbation. I will check an ABG to assess for hypercarbic respiratory failure. I will check an alpha 1 anti trypsin genotype and level on 11/12/2024. At this time he is asymptomatic and I will not initiate any bronchodilator therapy. 11/12/24; This is a diagnosis consistent with his smoking hx and his chest CT. No initiation of medications at this time due to his lack of symptoms. Subjective Date/time seen: 11/12/24 15:17 Interval history: 11/11/2024: This is a new pulmonary consult for intrapulmonary shunt. 79-year-old with a history of coronary artery disease status post stent in 2003, GERD, and tobacco use. Patient presented to the hospital on 11/06/2024 with right facial weakness, right arm weakness, right leg weakness and slurred speech. His NIH score was 9. He was a and O x3. He is outside the window for thrombolysis. In the emergency department his blood pressure is 130/56, heart rate 89, respirations 24, 96% on room air. White blood cell count 10.8, creatinine 1.49. Chest x- ray showed right upper lobe scarring with an elevated left hemidiaphragm. CT scan of the head showed no intra cerebral hemorrhage or masses. No acute infarct. CT angiogram of the neck was normal regarding his circulation. echocardiogram with bubble study demonstrated difficult study with poor windows. Normal biventricular size and systolic function. Agitated saline study showed delayed transit of bubbles from right to left suggestive of extracardiac shunt. Patient was started on aspirin and Plavix and admitted to the hospital. 11/08/2024: MRI showed multiple left frontal and parietal lobe infarcts. Aspirin and Plavix were changed to Eliquis 10 p.o. b.i.d.. 11/09/2024: RAY demonstrated: normal LV and RV size and function. No LV thrombus. Normal left atrium. Enlarged right atrium. Bubble study shows a mild right to left shunt that is delayed, consistent with intrapulmonary shunt. Mild mitral regurg. 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 Moderate AR. No tricuspid regurg mobile elements. Left atrial appendage without thrombus or vegetation. 11/10/2024: CT scan of the chest shows severe apical predominant paraseptal emphysema with mild apical predominant centrilobular emphysema. 5.2 x 2.4 cm spiculated right upper lobe mass. Right hilar and mediastinal enlarged lymph nodes. Lower extremity Dopplers negative for DVT. 11/11/2024: Overall the patient tells me he feels he is getting a little better from his stroke. Patient tells me his name and spells his last name, knows he is in [facility], states that his November 10, 2024, knows that Mayelin is the president [facility], names a pen, names pen cap but not able to name the clip of the pen cap. He is able to give me details of his history. At baseline the patient tells me he can walk 3/4 of a block. Overall he says he has no respiratory limitations in his activities of daily living. He is on no inhaled medicines. He is on no oxygen. He denies a chronic cough. He states that he produces phlegm 2 to 3 times a day with no hemoptysis. He denies any nose bleeds or sores in his mouth. He denies any rashes. He denies shortness of breath or dyspnea when going from a laying to upright or seated to upright position. Patient is a current smoker from age 29 to this admission at 3/4 pack per day for a total of 38 pack years. Patient was exposed to secondhand smoke from his father and is currently exposed to secondhand smoke now from his family. He denies fever, chills, rigors, cough, phlegm production or hemoptysis. His room air saturations in the supine position were 99%. I stood him up at the bedside and he did not get shortness of breath when standing and after 2 minutes his standing saturations on room air were 99%. white blood cell count 9.3, creatinine 1.30. patient is currently on Eliquis 10 mg p.o. q.day last dose 11/11 at 8:37 a.m.. 11/12/24; He is resting in bed, on room air. I talked with him about the RUL nodule, getting a biopsy which he does not want, vs possible empiric radiation from [facility] which is sometimes an option for older people with high probability of having lung cancer. He is not interested in either of these options. He is not as short of breath, feels better compared to admission. 11/11/24 LE venous Dopplers : No evidence of deep vein thrombosis involving either lower extremity. DATA: 11/10/24: EXAMINATION: CT diagnostic chest wo con INDICATION: Assess for pulmonary arterial venous malformations COMPARISON: None. FINDINGS: CHEST: Thoracic aorta: No significant dilation or calcification. Lung parenchyma and airways: Spiculated 5.2 x 2.4 cm right upper lobe mass. Severe emphysematous change. Thoracic inlet, axillae and chest wall: No thyroid or soft tissue mass. No axillary lymphadenopathy. Mediastinum: Right suprahilar scarring and hilar retraction. Multiple enlarged right hilar and mediastinal lymph nodes. Heart and pericardium: Normal heart size. No pericardial effusion. Coronary artery calcifications: Moderate. Pleura: No effusion or mass. Upper abdomen: No significant finding. Thoracic bones: No acute osseous finding in the chest. T6 vertebral body hemangioma. IMPRESSION: 5.2 cm right upper lobe mass, concerning for malignancy. Right hilar and mediastinal lymph node involvement is suspected. Consider biopsy and/or PET/CT. Pulmonary artery malformations cannot be adequately assessed without contrast. Review of Systems Review of Systems: All systems reviewed & are unremarkable except as noted in HPI and below Exam Const: General: cooperative, healthy appearing and comfortable Orientation/consciousness: oriented to person, oriented to place and oriented to time Other: Dysarthric speech has improved. HENMT: Head: normal to inspection Ears: hearing grossly normal bilaterally Other: no oral telangiectasia or hemangiomas Eyes: General: appearance normal, both eyes and all related structures Neck: Neck: normal visual inspection Chest: Chest palpation & inspection: normal inspection of the chest Resp: Effort & Inspection: normal respiratory effort and able to speak in complete sentences Auscultation: no crackles, no rales, no rhonchi, no wheezes and diminished lung sounds Cardio: Jugular venous distension: no JVD GI: Inspection: normal to inspection GI Palp: No abdominal tenderness Skin: General skin exam: normal color Other: no spider angiomas or telangiectasia Neuro: General: oriented to person, oriented to place and oriented to time Other: right facial droop, weak right upper extremity and right lower extremity. Extrem: General: normal to inspection Psych: Appearance: grossly normal Objective Data Vital Signs Vital Signs: Vital Signs - 24 hr 11/11/24 16:00 11/11/24 20:01 11/11/24 21:24 Temperature Pulse Rate 78 67 Respiratory Rate Blood Pressure Pulse Oximetry 97 Oxygen Delivery Room Air 11/11/24 22:00 11/12/24 00:04 11/12/24 04:00 Temperature 37.0 C Pulse Rate 64 64 60 Respiratory Rate 18 Blood Pressure 124/54 L Pulse Oximetry 97 Oxygen Delivery 11/12/24 06:00 11/12/24 08:00 Temperature 36.6 C Pulse Rate 66 Respiratory Rate 18 Blood Pressure 119/59 L Pulse Oximetry 88 L Oxygen Delivery Room Air Intake/Output Intake/Output: Intake & Output 11/09/24 11/10/24 11/11/24 11/12/24 23:59 23:59 23:59 23:59 Intake Total 320 350 540 540 Output Total 648 019 5983 400 Balance 20 400 -760 140 Meds/Results Medications: Active Medications Generic Name Dose Route Start Last Admin Trade Name Freq PRN Reason Stop Dose Admin Acetaminophen 650 mg 11/06/24 14:12 11/08/24 18:00 Acetaminophen 325 Mg Tablet PO 650 mg Q4H PRN Administration Mild Pain (1-3) or Fever Hydrocodone Bitart/Acetaminophen 1 tab 11/06/24 14:12 Hydrocodone/Acetaminophen (*Crx) 5-325 Mg Tablet PO Q4H PRN Pain Rated 4-6 Apixaban 10 mg 11/08/24 09:00 11/11/24 08:37 Apixaban 5 Mg Tablet PO 10 mg Q12HR KARL Administration Atorvastatin Calcium 40 mg 11/07/24 09:00 11/12/24 08:15 Atorvastatin 40 Mg Tablet PO 40 mg DAILY KARL Administration Enoxaparin Sodium 70 mg 11/11/24 21:00 11/12/24 08:14 Enoxaparin 80 Mg/0.8 Ml Syringe SUB-Q 70 mg Q12HR KARL Administration Morphine Sulfate 2 mg 11/06/24 14:12 Morphine Sulfate (*Crx) 2 Mg/Ml Inj IV PUSH Q2H PRN Pain Rated 7-10 Ondansetron HCl 4 mg 11/06/24 14:12 Ondansetron Inj 4 Mg/2 Ml Vial IV PUSH Q4H PRN Nausea Radiology Results: ITS Impressions Head CT 11/06/24 12:52 Impression: No intracranial hemorrhage, mass, or acute infarct. Atrophy and chronic white matter changes, as above. Case discussed with Dr. Torres at 12:52 PM on 11/06/2024. Head/Neck CTA 11/06/24 13:07 IMPRESSION: Unremarkable CTA of the head and neck. No evidence of cerebral artery aneurysm, stenosis or mass. Complete opacification of the right maxillary sinus. Correlate clinically for acute sinusitis. *REFERENCES: NASCET CRITERIA: The degree of internal carotid artery (ICA) stenosis is based on NASCET criteria. Normal is no stenosis. Mild is less than 50% stenosis. Moderate is 50-69% stenosis. Severe is 70-99% stenosis. Total occlusion is no detectable patent lumen. Chest X-Ray 11/06/24 14:14 IMPRESSION: Fibrotic changes in the right upper and left lower lobe. No acute lung lesion seen Brain MRI 11/07/24 16:10 IMPRESSION: 1. Multiple small acute infarcts in the left frontal and parietal lobes consistent with sharp emboli in the left middle cerebral artery vascular disease effusion. Chest CT 11/10/24 19:40 IMPRESSION: 5.2 cm right upper lobe mass, concerning for malignancy. Right hilar and med iastinal lymph node involvement is suspected. Consider biopsy and/or PET/CT. Pulmonary artery malformations cannot be adequately assessed without contrast. Upper Quadrant Ultrasound 11/11/24 08:55 Impression: Diffuse fatty infiltration of the liver. Venous Doppler Study 11/11/24 08:55 Impression: No evidence of deep vein thrombosis involving either lower extremity. Labs Labs: Laboratory Results - last 24 hr 11/12/24 06:05 WBC 7.9 RBC 5.15 Hgb 15.3 Hct 46.9 MCV 91.1 MCH 29.7 MCHC 32.6 RDW 13.8 Plt Count 279 MPV 8.9 Immature Gran % (Auto) 0.8 H Neut % (Auto) 57.6 Lymph % (Auto) 27.4 [place] % (Auto) 11.1 H Eos % (Auto) 2.5 Baso % (Auto) 0.6 Lymph # (Auto) 2.17 [place] # (Auto) 0.9 H Eos # (Auto) 0.2 Baso # (Auto) 0.1 Abs Immat Gran (auto) 0.06 H Absolute Neuts (auto) 4.6 Absolute Nucleated RBC 0.000 Nucleated RBC % 0.0 Sodium 136 L Potassium 4.3 Chloride 107 Carbon Dioxide 21 L Anion Gap 8 BUN 20 Creatinine 1.36 H Estim Creat Clear Calc 38 Estimated GFR 50 L Glucose 93 Calcium 9.5 Magnesium 2.2 Total Bilirubin 0.4 AST 38 ALT 25 Alkaline Phosphatase 173 H Total Protein 8.1 Albumin 4.0
[2024-11-13 00:04] VITALS: PULSE 61
[2024-11-13 04:00] VITALS: PULSE 51
[2024-11-13 06:00] VITALS: BP 128/63; PULSE 68; RESP 18; TEMP 36.3; O2SAT 99
[2024-11-13 08:00] VITALS: PULSE 76
[2024-11-13 08:03] LABS: Alpha-1-Antitrypsin, QN. 158 mg/dL (83-199)
[2024-11-13] MEDS: ATORVASTATIN 40 MG TABLET PO (08:16)
[2024-11-13] MEDS: ENOXAPARIN 80 MG/0.8 ML SYRINGE 70 MG SUB-Q (08:16)
--- NOTE | 2024-11-13 09:28 | PCNWS ---
Weekly nutritional screen. Patient is tolerating current Heart Healthy diet with adequate intake, 100% meals. No weight loss reported. No nutritional needs at this time.
[2024-11-13 12:00] VITALS: PULSE 74
[2024-11-13 14:05] VITALS: BP 118/52; PULSE 71; RESP 16; TEMP 36; O2SAT 98
--- NOTE | 2024-11-13 14:10 | P.DS_ITS ---
DS: Admitting Diagnosis Discharge Date 11/13/2024 Admitting Diagnosis Stroke DS: Discharge Diagnosis Discharge Diagnosis (1) CVA (cerebral vascular accident): Code(s): I63.9 - Cerebral infarction, unspecified Status: Suspected DS: Summary Hospital Course Hospital Course: FAcial droop, R sided weakness CVA CT and CTA unremarkable MRI showed :1. Multiple small acute infarcts in the left frontal and parietal lobes consistent with sharp emboli in the left middle cerebral artery vascular disease effusion. echo:Agitated saline study showed delayed transit of bubbles from [id number] suggestive of extracardiac shunt. Added eliquis. consulted cardiology team. Echo with delayed transit of bubbles from right to left suggestive of extracardiac shunt Underwent RAY consistent with intrapulmonary shunt continue ASA, Plavix and statin. Since Eliquis started aspirin Plavix has been stopped. Pt/OT Neurology team on board continue to monitor CXR: Fibrotic changes in the right upper and left lower lobe. No acute lung lesion seen follow with PCp as outpatient Intrapulmonary shunt as noted in RAY. Further workup with CT chest revealed 5.2 cm right upper lobe mass concerning for malignancy. Right hilar and mediastinal lymph node involvement is suspected. Pulmonary on board. Discussed biopsy which did decides to forgo at this time. DVT venous duplex scan for lower extremities were negative. Currently on anticoagulation which will be continued. In case biopsy is planned will switch his Eliquis to Lovenox for now Discussed with Radiology in terms of ruling out pulmonary arteriovenous malformations and suggested CTA PE protocol however we refused to get any further testing. If he decides to undergo further testing he may follow-up with Pulmonary as an outpatient basis. Intrapulmonary shunt if any is mild with no evidence of hypoxia. Rule out underlying hepatic disease. Right upper quadrant ultrasound with fatty liver change. HTN permissive HTN GUI vs CKD3a Renally adjust meds continue to monitor Mild hyponatremia monitor for now Diet: Heart healthy GI Prophylaxis: Not currently indicated DVT Prophylaxis: SCDs IV fluids: None Lines/Tubes: Peripheral IV Code Status: Full code Time Spent with Patient Time attestation: Total time spent providing and/or coordinating discharge services: 35 minutes Exam Narrative: GENERAL: Well-appearing, well-nourished, and in no acute distress. HEAD: Normocephalic, atraumatic. ENT: Mucous membranes moist. CHEST: Clear to auscultation. No respiratory distress. HEART: Regular rate and rhythm. Normal peripheral pulses. ABDOMEN: Soft, nontender, nondistended. EXTREMITIES: Right arm and leg weakness. No edema. SKIN: Warm, dry, no rash. NEURO: Right-sided weakness in the arms/legs/face. Expressive aphasia Alert and oriented x3. PSYCH: Normal mood and affect. DS: Data Data Completed and Pending Completed studies during hospitalization: Exam Type: CA echo dop bubble study w con Complete two-dimentional, color flow and Doppler transthoracic echocardiogram is performed with agitated saline and with contrast to opacify the left ventricle and to improve the delineation of the left ventricle endocardial borders. Staff Referring Physician: Miguel Torres MD Store Clerk: Tootie Jarrell Attending Provider: Adelfo Siegel Contrast/Agitated Saline Contrast/Ag. Saline: Agitated Saline Amount: 20.00 ml Existing IV Access: Yes IV Access Condition: patent with no signs of infiltration Contrast/Ag. Saline: Definity Amount: 2.00 ml Administered By: Tootie Jarrell Existing IV Access: Yes IV Access Condition: patent with no signs of infiltration Summary 1. Technically difficult study with very poor acoustic windows and limited views. 2. There is normal biventricular size and systolic function. 3. Agitated saline study showed delayed transit of bubbles from [id number] suggestive of extracardiac shunt. Left Ventricle The left ventricle is normal in size and systolic function. The left ventricular ejection fraction is visually estimated be 50-55%. Cannot rule out regional wall motion abnormalities in this study. Right Ventricle The right ventricle is normal in size and systolic function. Left Atria The left atrium is normal size. Right Atria The right atrium is normal size. Atrial Septum Agitated saline study showed delayed transit of bubbles from [id number] suggestive of extracardiac shunt. Aortic Valve The aortic valve is not well visualized. Doppler gradients do not suggest significant aortic stenosis. Color Doppler suggests mild aortic regurgitation. Pulmonic Valve The pulmonic valve was not visualized. Mitral Valve The mitral valve leaflets are sclerotic. There is no mitral stenosis. There is no mitral regurgitation. Tricuspid Valve Tricuspid valve is not well visualized. Pericardium/Pleural Pericardium is normal in appearance with no evidence for significant pericardial effusion. Inferior Vena Cava Normal inferior vena cava with <50% collapse upon inspiration consistent with elevated right atrial pressure, 8 mmHg. Aorta The aorta is not well visualized. Labs on day of discharge: Labs from last 24 hours 11/12/24 06:05 [id number] Procedures/Treatments: RAY TransEsophageal Echocardiogram Date of procedure: 11/09/24 Procedure Type: Date Of Procedure: 11/09/2024 Brief History Of Present Illness: Patient is an 79 year old male with acute CVA referred for RAY for acute CVA, possible interatrial shunt. Procedure In Detail: Patient was monitored throughout the study with telemetry, oxygen saturation, end-tidal CO2 monitoring, blood pressure, heart rate, and respirations.?The posterior hypopharynx was then locally anesthetized using repeated administration of Hurricaine spray. After local anesthetic of the posterior hypopharynx was achieved and the oral bite block placed, moderate sedation was administered.?After confirmation of adequate moderate sedation, the transes ophageal echocardiogram probe was advanced through the oral bite block into the posterior hypopharynx and into the esophagus easily and without complication.?Multiple, multiplanar echocardiographic images were obtained in multiple standard re-projections.?Color-flow Doppler were utilized in conjunction with this study.?At the conclusion of the study, the transesophageal echocardiogram probe was removed easily and without complication. The patient tolerated the procedure well without difficulty.?Patient was in sinus rhythm throughout the study. Moderate Sedation / Anesthesia Administration: Procedure / sedation start time: 11:42 Procedure / sedation end time: 11:52 Total of IV Versed 3mg and Fentanyl 75mg was administered by RN. FINDINGS: LEFT VENTRICLE: Size and systolic function were within normal limits. No LV thrombus. RIGHT VENTRICLE:?Size and systolic function within normal limits. LEFT ATRIUM: Normal size. RIGHT ATRIUM: Appears enlarged. INTERATRIAL SEPTUM: Bubble study shows a mild right to left shunt that is delayed, consistent with an intrapulmonary shunt. MITRAL VALVE: Mitral valve is anatomically normal with preserved leaflet excursion and mild regurgitation. AORTIC VALVE: The aortic valve was an anatomically normal 3 leaflet structure. 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 Moderate aortic regurgitation. TRICUSPID VALVE: The tricuspid valve is anatomically normal with normal leaflet excursion ..? No mobile elements identified. PULMONIC VALVE: Grossly normal. LEFT ATRIAL APPENDAGE: Anatomically normal structure with prominent pectinate muscles without thrombus or vegetation identified. PERICARDIUM: The pericardium was anatomically normal without significant pericardial effusion. ? AORTA: Mild atherosclerotic disease. CONCLUSION: Bubble study shows a mild right to left shunt that is delayed, consistent with an intrapulmonary shunt. Complications: None Imaging Radiologist's impression: ITS Impressions Head CT 11/06/24 12:52 Impression: No intracranial hemorrhage, mass, or acute infarct. Atrophy and chronic white matter changes, as above. Case discussed with Dr. Torres at 12:52 PM on 11/06/2024. Head/Neck CTA 11/06/24 13:07 IMPRESSION: Unremarkable CTA of the head and neck. No evidence of cerebral artery aneurysm, stenosis or mass. Complete opacification of the right maxillary sinus. Correlate clinically for acute sinusitis. *REFERENCES: NASCET CRITERIA: The degree of internal carotid artery (ICA) stenosis is based on NASCET criteria. Normal is no stenosis. Mild is less than 50% stenosis. Moderate is 50-69% stenosis. Severe is 70-99% stenosis. Total occlusion is no detectable patent lumen. Chest X-Ray 11/06/24 14:14 IMPRESSION: Fibrotic changes in the right upper and left lower lobe. No acute lung lesion seen Brain MRI 11/07/24 16:10 IMPRESSION: 1. Multiple small acute infarcts in the left frontal and parietal lobes consistent with sharp emboli in the left middle cerebral artery vascular disease effusion. Chest CT 11/10/24 19:40 IMPRESSION: 5.2 cm right upper lobe mass, concerning for malignancy. Right hilar and mediastinal lymph node involvement is suspected. Consider biopsy and/or PET/CT. Pulmonary artery malformations cannot be adequately assessed without contrast. Upper Quadrant Ultrasound 11/11/24 08:55 Impression: Diffuse fatty infiltration of the liver. Venous Doppler Study 11/11/24 08:55 Impression: No evidence of deep vein thrombosis involving either lower extremity. Discharge Plan Discharge Attending physician on discharge: Jan Pozo Consulting providers: Yury Casillas; Jyoti Price; Vikram Hernandez Discharging Clinician: Jan Pozo Anticipated Discharge Date/Time: 11/13/24 14:14 Patient Disposition: Inpatient Rehab Facility Activity: as tolerated Diet: heart healthy Patient Instructions: Clopidogrel (By mouth), Apixaban (By mouth) Patient Language: Georgian Stand Alone Forms: General Discharge Information Follow-up/Referrals: Yury Casillas MD [Physician] - 3 Weeks UNKNOWN,DOCTOR [Primary Care Provider] - 1 Week Vikram Hernandez MD [Physician] - 3 Weeks Discharge Medications: New atorvastatin 40 mg Tablet 40 mg PO DAILY Qty: 30 0RF Eliquis 5 mg tablet 5 mg PO BID Qty: 60 0RF No Action No Home Medications Date of admission: 11/08/24 10:54 Primary Care Provider: UNKNOWN,DOCTOR Admitting Provider: Adelfo Siegel Attending physician on admission: Adelfo Siegel Condition: Stable
--- NOTE | 2024-11-13 15:24 | PM.PNPUL ---
Progress Note: A&P Assessment and Plan (1) Lung mass: Code(s): R91.8 - Other nonspecific abnormal finding of lung field Status: Acute Assessment and Plan: 11/11/24 : Patient is a current smoker with 38 pack year tobacco use. On 11/10/2024: CT scan of the chest shows severe apical predominant paraseptal emphysema with mild apical predominant centrilobular emphysema. 5.2 x 2.4 cm spiculated right upper lobe mass. Right hilar and mediastinal enlarged lymph nodes. patient is a been anticoagulated for his current ischemic stroke and his last dose of Plavix 75 was on 11/08/2024 at 9:04 a.m.. His last dose of Eliquis was on 11/11/2024 at 8:37 a.m.. Plan: I have explained to the patient and his daughter, Senia [phone], on the telephone the benefits and risks of a CT-guided biopsy. Patient and family will discuss amongst themselves their wishes for further workup of this lung mass. The patient has severe apical predominant paraseptal emphysema increasing his risk of pneumothorax. Today is Tuesday and the radiologist who performs the biopsy is not in house. Will attempt to discuss if there are any supraclavicular lymph nodes that can be more safely biopsied and whether or not a CT-guided biopsy can be performed at [facility] with them on 11/12/2024. Will discuss with hospitalist a shorter acting anticoagulant, like lovenox, in case this biopsy is desired by the family and the patient and in case this biopsy can be performed at [facility]. 11/12/24; He does not want a biopsy, and is not interested in seeing Rad Onc at this time for possible empiric radiation to the RUL mass. He can always change his mind later. 11/13/24: Continues to not want a biopsy or RUL nodule, and has the option to see Rad Onc at this time for possible empiric radiation to the RUL mass. He can always change his mind later. (2) Pulmonary AV (arteriovenous) fistula: Code(s): I28.0 - Arteriovenous fistula of pulmonary vessels Status: Acute Assessment and Plan: 11/06/2024: Echocardiogram with bubble study demonstrated difficult study with poor windows. Normal biventricular size and systolic function. Agitated saline study showed delayed transit of bubbles from right to left suggestive of extracardiac shunt. 11/08/2024: MRI showed multiple left frontal and parietal lobe infarcts. Aspirin and Plavix were changed to Eliquis 10 p.o. b.i.d.. 11/09/2024: RAY demonstrated: normal LV and RV size and function. No LV thrombus. Normal left atrium. Enlarged right atrium. Bubble study shows a mild right to left shunt that is delayed, consistent with intrapulmonary shunt. Mild mitral regurg. 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 Moderate AR. No tricuspid regurg mobile elements. Left atrial appendage without thrombus or vegetation. He states that he never has had hemoptysis. He denies any nose bleeds or sores in his mouth. He denies any rashes. He denies shortness of breath or dyspnea when going from a laying to upright or seated to upright position, thus there is no platypnea. His room air saturations in the supine position were 99%. I stood him up at the bedside and he did not get shortness of breath when standing and after 2 minutes his standing saturations on room air were 99%, thus ther is no orthodeoxia. Etiology of pulmonary right to left shunt includes: pulmonary arteriovenous malformation, lung cancer, doubt hereditary hemorrhagic telangiectasia, or hepatopulmonary syndrome. Plan: Will discuss with Radiology on 11/12/2024 optimal imaging with high-resolution CT scan or standard CT scan with contrast to assess for pulmonary arterial venous malformation and to determine the size of the feeding vessel which would guide need for embolization. 11/12/24; Dr Pozo has discussed imaging study with radiology for additioanl avaluation. (3) COPD (chronic obstructive pulmonary disease): Code(s): J44.9 - Chronic obstructive pulmonary disease, unspecified Status: Acute Assessment and Plan: Patient is a current smoker from age 29 to this admission at 3/4 pack per day for a total of 38 pack years. I have no PFTs. Patient was exposed to secondhand smoke from his father and is currently exposed to secondhand smoke now from his family. At baseline the patient tells me he can walk 3/4 of a block. Overall he says he has no respiratory limitations in his activities of daily living. He is on no inhaled medicines. He is on no oxygen. He denies a chronic cough. He states that he produces phlegm 2 to 3 times a day with no hemoptysis. 11/06/2024 white blood cell count 10.8, eosinophils 0.6=65/uL. 11/10/2024: CT scan of the chest shows severe apical predominant paraseptal emphysema with mild apical predominant centrilobular emphysema. 11/11/24: He denies fever, chills, rigors, cough, phlegm production or hemoptysis. His room air saturations in the supine position were 99%. Plan: Currently the patient is asymptomatic with no evidence of pulmonary infection or COPD exacerbation. I will check an ABG to assess for hypercarbic respiratory failure. I will check an alpha 1 anti trypsin genotype and level on 11/12/2024. At this time he is asymptomatic and I will not initiate any bronchodilator therapy. 11/12/24; This is a diagnosis consistent with his smoking hx and his chest CT. No initiation of medications at this time due to his lack of symptoms. Plan plan: He does not need to see pulmonary in follow up in the office as this admission was for a stroke, and his COPD was found incidentally. He has a RUL nodule, suspected to be cancer. He may call for a f/u appt if he changes his mind. Discussed with DR Pozo today. Agree with plans for d/c to rehab in [facility], [address], [address] office : [phone] Tell the medical receptionist medical assistant that you were in the hospital, and you want to have a f/u appt. Subjective Date/time seen: 11/13/24 15:24 Interval history: 11/11/2024: This is a new pulmonary consult for intrapulmonary shunt. 79-year-old with a history of coronary artery disease status post stent in 2003, GERD, and tobacco use. Patient presented to the hospital on 11/06/2024 with right facial weakness, right arm weakness, right leg weakness and slurred speech. His NIH score was 9. He was a and O x3. He is outside the window for thrombolysis. In the emergency department his blood pressure is 130/56, heart rate 89, respirations 24, 96% on room air. White blood cell count 10.8, creatinine 1.49. Chest x-ray showed right upper lobe scarring with an elevated left hemidiaphragm. CT scan of the head showed no intra cerebral hemorrhage or masses. No acute infarct. CT angiogram of the neck was normal regarding his circulation. echocardiogram with bubble study demonstrated difficult study with poor windows. Normal biventricular size and systolic function. Agitated saline study showed delayed transit of bubbles from right to left suggestive of extracardiac shunt. Patient was started on aspirin and Plavix and admitted to the hospital. 11/08/2024: MRI showed multiple left frontal and parietal lobe infarcts. Aspirin and Plavix were changed to Eliquis 10 p.o. b.i.d.. 11/09/2024: RAY demonstrated: normal LV and RV size and function. No LV thrombus. Normal left atrium. Enlarged right atrium. Bubble study shows a mild right to left shunt that is delayed, consistent with intrapulmonary shunt. Mild mitral regurg. 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 Moderate AR. No tricuspid regurg mobile elements. Left atrial appendage without thrombus or vegetation. 11/10/2024: CT scan of the chest shows severe apical predominant paraseptal emphysema with mild apical predominant centrilobular emphysema. 5.2 x 2.4 cm spiculated right upper lobe mass. Right hilar and mediastinal enlarged lymph nodes. Lower extremity Dopplers negative for DVT. 11/11/2024: Overall the patient tells me he feels he is getting a little better from his stroke. Patient tells me his name and spells his last name, knows he is in [facility], states that his November 10, 2024, knows that Mayelin is the president [facility], names a pen, names pen cap but not able to name the clip of the pen cap. He is able to give me details of his history. At baseline the patient tells me he can walk 3/4 of a block. Overall he says he has no respiratory limitations in his activities of daily living. He is on no inhaled medicines. He is on no oxygen. He denies a chronic cough. He states that he produces phlegm 2 to 3 times a day with no hemoptysis. He denies any nose bleeds or sores in his mouth. He denies any rashes. He denies shortness of breath or dyspnea when going from a laying to upright or seated to upright position. Patient is a current smoker from age 29 to this admission at 3/4 pack per day for a total of 38 pack years. Patient was exposed to secondhand smoke from his father and is currently exposed to secondhand smoke now from his family. He denies fever, chills, rigors, cough, phlegm production or hemoptysis. His room air saturations in the supine position were 99%. I stood him up at the bedside and he did not get shortness of breath when standing and after 2 minutes his standing saturations on room air were 99%. white blood cell count 9.3, creatinine 1.30. patient is currently on Eliquis 10 mg p.o. q.day last dose 11/11 at 8:37 a.m.. 11/12/24; He is resting in bed, on room air. I talked with him about the RUL nodule, getting a biopsy which he does not want, vs possible empiric radiation from [facility] which is sometimes an option for older people with high probability of having lung cancer. He is not interested in either of these options. He is not as short of breath, feels better compared to admission. * 11/11/24 LE venous Dopplers : No evidence of deep vein thrombosis involving either lower extremity. 11/13/24; He is on RA, ready to go to rehab, does not want a biopsy of his RUL lung nodule, and is not interested in talking with Rad Onc about possible empiric radiation without a biopsy. He is not short of breath. DATA: 11/10/24: EXAMINATION: CT diagnostic chest wo con INDICATION: Assess for pulmonary arterial venous malformations COMPARISON: None. FINDINGS: CHEST: Thoracic aorta: No significant dilation or calcification. Lung parenchyma and airways: Spiculated 5.2 x 2.4 cm right upper lobe mass. Severe emphysematous change. Thoracic inlet, axillae and chest wall: No thyroid or soft tissue mass. No axillary lymphadenopathy. Mediastinum: Right suprahilar scarring and hilar retraction. Multiple enlarged right hilar and mediastinal lymph nodes. Heart and pericardium: Normal heart size. No pericardial effusion. Coronary artery calcifications: Moderate. Pleura: No effusion or mass. Upper abdomen: No significant finding. Thoracic bones: No acute osseous finding in the chest. T6 vertebral body hemangioma. IMPRESSION: 5.2 cm right upper lobe mass, concerning for malignancy. Right hilar and mediastinal lymph node involvement is suspected. Consider biopsy and/or PET/CT. Pulmonary artery malformations cannot be adequately assessed without contrast. Review of Systems Review of Systems: All systems reviewed & are unremarkable except as noted in HPI and below Exam Const: General: cooperative, healthy appearing and comfortable Orientation/consciousness: oriented to person, oriented to place and oriented to time Other: Dysarthric speech has improved. HENMT: Head: normal to inspection Ears: hearing grossly normal bilaterally Other: no oral telangiectasia or hemangiomas Eyes: General: appearance normal, both eyes and all related structures Neck: Neck: normal visual inspection Chest: Chest palpation & inspection: normal inspection of the chest Resp: Effort & Inspection: normal respiratory effort and able to speak in complete sentences Auscultation: no crackles, no rales, no rhonchi, no wheezes and diminished lung sounds Cardio: Jugular venous distension: no JVD GI: Inspection: normal to inspection GI Palp: No abdominal tenderness Skin: General skin exam: normal color Other: no spider angiomas or telangiectasia Neuro: General: oriented to person, oriented to place and oriented to time Other: right facial droop, weak right upper extremity and right lower extremity. Extrem: General: normal to inspection Psych: Appearance: grossly normal Objective Data Vital Signs Vital Signs: Vital Signs - 24 hr 11/12/24 16:00 11/12/24 20:00 11/12/24 21:28 Temperature Pulse Rate 63 65 Respiratory Rate Blood Pressure Pulse Oximetry 100 Oxygen Delivery Room Air 11/12/24 22:00 11/13/24 00:04 11/13/24 04:00 Temperature 36.3 C L Pulse Rate 64 61 51 L Respiratory Rate 18 Blood Pressure 133/61 Pulse Oximetry 100 Oxygen Delivery 11/13/24 06:00 11/13/24 08:00 11/13/24 08:00 Temperature 36.3 C L Pulse Rate 68 76 Respiratory Rate 18 Blood Pressure 128/63 Pulse Oximetry 99 Oxygen Delivery Room Air 11/13/24 12:00 11/13/24 14:05 Temperature 36.0 C L Pulse Rate 74 71 Respiratory Rate 16 Blood Pressure 118/52 L Pulse Oximetry 98 Oxygen Delivery Intake/Output Intake/Output: Intake & Output 11/10/24 11/11/24 11/12/24 11/13/24 23:59 23:59 23:59 23:59 Intake Total 371 969 3959 900 Output Total 750 1300 800 500 Balance -400 -760 220 400 Meds/Results Medications: Active Medications Generic Name Dose Route Start Last Admin Trade Name Freq PRN Reason Stop Dose Admin Acetaminophen 650 mg 11/06/24 14:12 11/08/24 18:00 Acetaminophen 325 Mg Tablet PO 650 mg Q4H PRN Administration Mild Pain (1-3) or Fever Hydrocodone Bitart/Acetaminophen 1 tab 11/06/24 14:12 Hydrocodone/Acetaminophen (*Crx) 5-325 Mg Tablet PO Q4H PRN Pain Rated 4-6 Apixaban 10 mg 11/08/24 09:00 11/11/24 08:37 Apixaban 5 Mg Tablet PO 10 mg Q12HR KARL Administration Atorvastatin Calcium 40 mg 11/07/24 09:00 11/13/24 08:16 Atorvastatin 40 Mg Tablet PO 40 mg DAILY KARL Administration Enoxaparin Sodium 70 mg 11/11/24 21:00 11/13/24 08:16 Enoxaparin 80 Mg/0.8 Ml Syringe SUB-Q 70 mg Q12HR KARL Administration Morphine Sulfate 2 mg 11/06/24 14:12 Morphine Sulfate (*Crx) 2 Mg/Ml Inj IV PUSH Q2H PRN Pain Rated 7-10 Ondansetron HCl 4 mg 11/06/24 14:12 Ondansetron Inj 4 Mg/2 Ml Vial IV PUSH Q4H PRN Nausea Radiology Results: ITS Impressions Head CT 11/06/24 12:52 Impression: No intracranial hemorrhage, mass, or acute infarct. Atrophy and chronic white matter changes, as above. Case discussed with Dr. Torres at 12:52 PM on 11/06/2024. Head/Neck CTA 11/06/24 13:07 IMPRESSION: Unremarkable CTA of the head and neck. No evidence of cerebral artery aneurysm, stenosis or mass. Complete opacification of the right maxillary sinus. Correlate clinically for acute sinusitis. *REFERENCES: NASCET CRITERIA: The degree of internal carotid artery (ICA) stenosis is based on NASCET criteria. Normal is no stenosis. Mild is less than 50% stenosis. Moderate is 50-69% stenosis. Severe is 70-99% stenosis. Total occlusion is no detectable patent lumen. Chest X-Ray 11/06/24 14:14 IMPRESSION: Fibrotic changes in the right upper and left lower lobe. No acute lung lesion seen Brain MRI 11/07/24 16:10 IMPRESSION: 1. Multiple small acute infarcts in the left frontal and parietal lobes consistent with sharp emboli in the left middle cerebral artery vascular disease effusion. Chest CT 11/10/24 19:40 IMPRESSION: 5.2 cm right upper lobe mass, concerning for malignancy. Right hilar and mediastinal lymph node involvement is suspected. Consider biopsy and/or PET/CT. Pulmonary artery malformations cannot be adequately assessed without contrast. Upper Quadrant Ultrasound 11/11/24 08:55 Impression: Diffuse fatty infiltration of the liver. Venous Doppler Study 11/11/24 08:55 Impression: No evidence of deep vein thrombosis involving either lower extremity. Labs Labs: Laboratory Results - last 24 hr 11/12/24 06:05 [id number]
== END 2024-11-13 16:10 | DRG 65 ==
LOC: ANHED 15:06 → ANH3MEDSUR 15:36
PROVIDERS: Internal Medicine; Internal Medicine Pulmonary Disease; Student in an Organized Health Care Education/Training Program; Admitting Provider Internal Medicine; Emergency Provider Emergency Medicine; Visit Provider Internal Medicine
PROC: B24BZZ4 Ultrasonography of Heart with Aorta, Transesophageal (ICD-10-PCS; CPT 93312; principal; 2024-11-09 11:30)
DX: I63.412 Cerebral infarction due to embolism of left middle cerebral artery (principal); E87.1 Hypo-osmolality and hyponatremia; G81.91 Hemiplegia, unspecified affecting right dominant side; I28.0 Arteriovenous fistula of pulmonary vessels; R29.810 Facial weakness; R47.1 Dysarthria and anarthria; R29.709 NIHSS score 9; R29.710 NIHSS score 10; R91.8 Other nonspecific abnormal finding of lung field; J44.9 Chronic obstructive pulmonary disease, unspecified; I10 Essential (primary) hypertension; K21.9 Gastro-esophageal reflux disease without esophagitis; M19.90 Unspecified osteoarthritis, unspecified site; F17.200 Nicotine dependence, unspecified, uncomplicated; I25.2 Old myocardial infarction; Z95.5 Presence of coronary angioplasty implant and graft; Z87.442 Personal history of urinary calculi
CPT/HCPCS: 36415; 36600; 70450; 70496; 70498; 70553; 71045; 71250; 76705; 80048; 80053; 80061; 81001; 82103; 82104; 82805; 82948; 83036; 83735; 84443; 84484; 85018; 85025; 85027; 85610; 85730; 92507; 92523; 92610; 93005; 93312; 93320; 93325; 93970; 96374; 96375; 97110; 97116; 97162; 97166; 97530; 97535; 99285; A9270; A9577; C8929; G0378; J1650; J2250; J3010; J7040; Q9957; Q9967

== ENCOUNTER 2024-12-23 15:11 | Inpatient (IN) | payer OTHER, SELFPAY ==
--- NOTE | ~2024-12-23 | US_ITS ---
US right upper quadrant INDICATION: Elevated liver enzymes. PROCEDURE: Realtime right upper abdominal ultrasound. COMPARISON: No prior studies for comparison. FINDINGS: The pancreas is normal without focal mass or pancreatic ductal dilation. Liver echotexture is increased, consistent with fatty infiltration. There is normal directional flow in the portal ve in. There is gallbladder sludge. Common bile duct measures 4 mm. No sonographic Alvarenga's sign. IMPRESSION: 1: Fatty infiltration of the liver. 2: Gallbladder sludge. Reviewed, dictated and finalized at location A.
--- NOTE | ~2024-12-23 | MR_ITS ---
EXAMINATION: MR brain/brain stem wo con DATE: 12/25/2024 14:06 INDICATION: Altered mental status TECHNIQUE: Magnetic resonance imaging (MRI) of the brain and brainstem was performed without intraven ous contrast. Sequences included sagittal and axial T1-weighted SE, axial diffusion-weighted FS SE, a xial 3D SWAN, axial T2-weighted FLAIR, and axial T2-weighted FSE. Apparent diffusion coefficient (ADC ) maps were created. COMPARISON: Brain MR dated 11/07/2024 FINDINGS: There is restricted diffusion with associated cytotoxic edema with cortical swelling and increased si gnal consistent with subacute infarcts involving large portions of the left frontal and parietal lobe s, smaller region at the left occipital lobe and small focus at the left cerebellar hemisphere. The r egion infarct in the left cerebral hemisphere appear significantly more extensive than the small lisandro ection of acute infarction prior study from 11/07/2024. The left cerebellar lesion also appears new si nce the prior study. Thin serpiginous gyriform pattern of T1 hyperintense laminar necrosis seen along the region of left cerebral infarct. No intracranial hemorrhage or abnormal intracranial mass lesion . There are scattered areas of nonspecific increased T2-weighted signal intensity in the cerebral whi te matter, predominantly involving the deep and periventricular white matter. There are no intraparen chymal signal abnormalities seen on the other pulse sequences. The ventricles are symmetric and devaughn l in size. There are no abnormal extra-axial fluid collections. There is loss of the normal flow-void T2-weighted sequences in the left internal carotid artery at the carotid canal and decreased at the carotid siphons which could be due to thrombosis or slow flow. On review of the carotid CT angiogram from 12/23/2024 there is a moderate to severe stenosis at the distal left carotid bulb with suggestion of possible dissection flap more proximally in the bulb. Mild mucosal thickening bilateral ethmoid s inuses. Moderate mucosal thickening with central mucous nearly filling the left maxillary sinus. Visu alized orbits and soft tissues are unremarkable. IMPRESSION: 1. Likely recurrent acute infarcts now more extensive and confluent in the same left frontal, parieta l and occipital regions at the site of the previously smaller scattered acute infarcts evident on the MRI from 2 months prior also in the left internal cerebral vasculature artery distribution. There is new loss of the normal flow void in the intracranial left internal carotid artery which could be see n with occlusion or slow flow. A 65% stenosis was noted at the left carotid bulb on CT angiogram date d 12/23/2024 on which there is also suggestion of a possible dissection flap which could predispose to wards recurrent thrombosis. 2. New small acute infarct in the left cerebral hemisphere. Reviewed, dictated and finalized at location A. IMPRESSION: 1. Likely recurrent acute infarcts now more extensive and confluent in the same left frontal, parietal and occipital regions at the site of the previously sma ller scattered acute infarcts evident on the MRI from 2 months prior also in th e left internal cerebral vasculature artery distribution. There is new loss of the normal flow void in the intracranial left internal carotid artery which cou ld be seen with occlusion or slow flow. A 65% stenosis was noted at the left ca rotid bulb on CT angiogram dated 12/23/2024 on which there is also suggestion of a possible dissection flap which could predispose towards recurrent thrombosis . 2. New small acute infarct in the left cerebral hemisphere.
--- NOTE | ~2024-12-23 | XR_ITS ---
EXAMINATION: XR chest 1V portable Exam Date/Time: 12/23/2024 18:20 CDT HISTORY: Weakness Comparison: 11/06/2024; CT chest 11/10/2024. RESULT: Lines, tubes, and devices: None. Lungs and pleura: Stable bilateral upper lung scarring, right upper lobe mass and right upper lobe c yst. Stable left hemidiaphragm elevation. Stable left midlung scar. Emphysematous changes. Cardiomediastinal silhouette: Stable. Other: No acute osseous or upper abdominal finding. IMPRESSION: No acute cardiopulmonary process. Chronic findings noted above. Reviewed, dictated and finalized at location K.
--- NOTE | ~2024-12-23 | CT_ITS ---
EXAMINATION: CTA brain carotid DATE: 12/23/2024 18:18 INDICATION: progressive right sided weakness, recent CVA TECHNIQUE: Computed tomographic angiography (CTA) of the head was performed without and with 100 mL O mnipaque-350 intravenous contrast. CTA of the neck was performed with intravenous contrast. Automated exposure control and iterative reconstruction technique were employed. The dose-length product was 1 644.28 mGy-cm. Maximum intensity projection and volume rendered 3D-reconstructions were created by chago carl technologist on a separate workstation. COMPARISON: MRI brain 11/07/2024; CT brain and CTA brain carotid 11/06/2024; CT chest 11/10/2024. FINDINGS: CT BRAIN: No acute large vessel infarct, intracranial hemorrhage, mass, or hydrocephalus. Multifocal low-densit y areas with loss of muro-white differentiation scattered throughout the left MCA territory. Near-com plete left maxillary sinus opacification, with surrounding sclerosis. Mild atrophy and chronic white matter change. Atherosclerotic intracranial calcifications. CTA HEAD: No large vessel occlusion, aneurysm, high flow vascular malformation, nidus or extravasation. The lef t intradural vertebral artery appears to terminate in a cerebral artery, a normal variant. Hypoplasti c distal intradural segment of the right vertebral artery, with a very small caliber basilar artery. Predominant posterior circulation flow comes from a variant arterial connection to the left cavernous carotid. Patent cerebral veins. Small left transverse sinus and sigmoid sinus. CTA NECK: Aortic arch and proximal great vessels: Bovine arch anatomy. Atherosclerotic calcifications at the vi sualized aortic arch and proximal great vessels. Right common carotid, carotid bifurcation, and internal carotid artery: Calcified and noncalcified, u lcerative appearing atherosclerotic plaque at the carotid bifurcation.There is 19% stenosis of the pr oximal right internal carotid artery relative to normal distal artery lumen diameter (NASCET criteria ). Left common carotid, carotid bifurcation, and internal carotid artery: Noncalcified plaque in the com mon carotid artery on the left. Calcified and noncalcified atherosclerotic plaque at the carotid bifu rcation.There is 65% stenosis of the proximal left internal carotid artery at the bifurcation, relati ve to normal distal artery lumen diameter (NASCET criteria). Noncalcified plaque in the more distal l eft internal carotid artery causing multifocal moderate stenoses. Vertebral arteries: Severe stenosis of the origin of the right vertebral artery. Vertebral arteries c o-dominant and small in caliber. Other findings: Severe emphysematous changes. Redemonstration of a large right upper lung mass. IMPRESSION: No acute intracranial process. No large vessel intracranial occlusion, high-grade intracranial stenosis, or aneurysm. No carotid artery occlusion, dissection, or significant stenosis. 65% stenosis of the proximal left internal carotid artery at the bifurcation. Multifocal areas of jasson cified and noncalcified plaque throughout the left carotid system. Ulcerative appearing plaque in the right carotid bifurcation, with 19% stenosis. No vertebral artery occlusion or dissection. Severe short segment stenosis at the origin of the right vertebral artery. CT findings suggestive of chronic left maxillary sinusitis. Evolving multifocal chronic infarct changes in the left MCA territory. Reviewed, dictated and finalized at location K. IMPRESSION: No acute intracranial process. No large vessel intracranial occlusion, high-grade intracranial stenosis, or an eurysm. No carotid artery occlusion, dissection, or significant stenosis. 65% stenosis of the proximal left internal carotid artery at the bifurcation. M ultifocal areas of calcified and noncalcified plaque throughout the left caroti d system. Ulcerative appearing plaque in the right carotid bifurcation, with 19% stenosis . No vertebral artery occlusion or dissection. Severe short segment stenosis at t he origin of the right vertebral artery. CT findings suggestive of chronic left maxillary sinusitis. Evolving multifocal chronic infarct changes in the left MCA territory.
--- NOTE | ~2024-12-23 | XR_ITS ---
MODIFIED ESOPHAGRAM HISTORY: Stroke TECHNIQUE: Modified barium esophagram was performed on 12/24/24. I administered fluoroscopy and perfor med the exam with speech pathologist. Patient was seated for lateral fluoroscopic imaging for ingest ion of thin liquids, pudding, solids and quantified amounts, followed by thin liquids in uncontrolled amounts. This was recorded on tape. A single fluoroscopic spot image was also recorded. The DAP for this procedure was 1.638 Gycm2. The amount of fluoroscopy time used during this procedure was 2.7 min utes. FINDINGS: Oral stage: Reduced labial seal/lip tension. Reduced lingual movement with delayed oral transit with all consistencies.. Pharyngeal stage: Vallecular residue with pudding and moderately thickened liquid consistencies secon judith to reduced tongue base retraction. One episode of laryngeal penetration without aspiration with mildly thickened liquids secondary to reduced laryngeal elevation. Cervical/esophageal stage: Adequate function. IMPRESSION: Oropharyngeal dysphagia with episodes of laryngeal penetration without aspiration with mi ldly thickened liquids. Please correlate with speech pathologist findings and specific feeding recom mendations. Reviewed, dictated and finalized at location A. IMPRESSION: Oropharyngeal dysphagia with episodes of laryngeal penetration with out aspiration with mildly thickened liquids. Please correlate with speech pat hologist findings and specific feeding recommendations.
[2024-12-23 15:16] VITALS: BP 136/74; PULSE 113; RESP 16; TEMP 36.1; O2SAT 95
[2024-12-23 16:44] LABS: Hematocrit 51.4 % (42.0-52.0); Hemoglobin 16.6 g/dL (14.0-18.0); Immature Granulocyte Percent A 0.6 % (0-0.5); Lymphocytes Absolute Auto 1.43 K/mm3 (0.9-3.2); Mean Corpuscular HGB Conc 32.3 g/dl (32-36); Mean Corpuscular Hemoglobin 29.1 pg (26-34); Mean Corpuscular Volume 90.2 fl (80-100); Nucleated Red Blood Cells Absolute Auto 0.000 K/mm3 (0.0-0.012); Nucleated Red Blood Cells Perc 0.0 % (0.0-0.2); Platelet Count Result 287 k/mm3 (150-375); Red Blood Count 5.70 M/mm3 (4.6-6.20); White Blood Count 13.1 K/mm3 (4.5-10.0)
[2024-12-23 16:55] LABS: INR 1.6; Partial Thromboplastin Time 30.0 Seconds (22.3-36.8); Prothrombin Time 19.0 Seconds (11.1-14.7)
[2024-12-23 16:57] LABS: Alanine Aminotransferase 66 U/L (6-50); Albumin Level 4.2 g/dL (3.5-5.1); Alkaline Phosphatase 240 U/L (38-126); Anion Gap 13 mmol/L (4-12); Aspartate Amino Transferase 65 U/L (17-59); Bilirubin,Total 0.8 mg/dL (0.2-1.3); Blood Urea Nitrogen 52 mg/dL (9-20); Calcium 10.3 mg/dL (8.4-10.2); Carbon Dioxide 18 mmol/L (22-30); Chloride 112 mmol/L (98-107); Estimated Glomerular Filt Rate 50; Glucose 149 mg/dL (65-110); Potassium 4.6 mmol/L (3.4-5.0); Sodium 143 mmol/L (137-145); Total Protein 9.1 g/dL (6.3-8.2)
[2024-12-23 17:08] LABS: Troponin I 0.012 ng/mL (0.000-0.034)
[2024-12-23 17:20] VITALS: BP 125/67; PULSE 90; RESP 20; O2SAT 99
[2024-12-23 17:25] VITALS: BP 127/68; PULSE 88; RESP 16; O2SAT 100
[2024-12-23] MEDS: SODIUM CHLORIDE 0.9% IV 1,000 ML 999 ML IV CONT (17:26)
--- NOTE | 2024-12-23 17:33 | ED.GENADULT ---
HPI - General Adult General Chief complaint: Weakness <Miguel Torres MD - Last Filed: 12/23/24 18:57> Stated complaint: trouble swallowing- hx of CVA 3weeks ago <Miguel Torres MD - Last Filed: 12/23/24 18:57> Time Seen by Provider: 12/23/24 16:10 <Miguel Torres MD - Last Filed: 12/23/24 18:57> History of Present Illness HPI narrative: Patient is an 79-year-old male with history of CVA who presents ER with progressive decline from home. Patient has been attempting to continue his physical therapy home but is becoming more weak. He is now last on the right side. He has been compliant with his home Eliquis. Patient also recently diagnosed with lung mass and he is decline to work it up anymore as he would not want to undergo treatment. No fevers or chills or sweats. No productive cough. Daughter's report over last few days patient has been having difficulty swallowing which is a new change. Patient has difficulty communicating since his stroke according to daughters. Patient does not attempt to answer questions but will shake his head. <Miguel Torres MD - Last Filed: 12/23/24 18:57> Related Data Allergies/adverse reactions: Allergies Allergy/AdvReac Type Severity Reaction Status Date / Time No Known Allergies Allergy Verified 11/06/24 17:16 <Miguel Torres MD - Last Filed: 12/23/24 18:57> Review of Systems Review of Systems: ROS unobtainable: Yes unobtainable due to medical condition <Miguel Torres MD - Last Filed: 12/23/24 18:57> [facility] Past Medical History Medical History: Medical History Left acute arterial ischemic stroke, MCA (middle cerebral artery) Arthritis Kidney stones Hernia GERD (gastroesophageal reflux disease) Myocardial infarction <Miguel Torres MD - Last Filed: 12/23/24 18:57> Surgical History Surgical History: Surgical History History of heart artery stent (~2003) <Miguel Torres MD - Last Filed: 12/23/24 18:57> Family History Family History: Family History Sibling Diabetes mellitus Mother Hypertension <Miguel Torres MD - Last Filed: 12/23/24 18:57> Social History Social History: Social History Smoking status: Current every day smoker Alcohol intake: former Substance use: never Do You Feel Safe in your Home?: Yes Lack of Transportation: YES Lack of Food: Never True Current Housing: I Have Housing Concerned About Future Housing: No Difficulty Paying Gas/Electric Bills: No Difficulty Paying for Meds: No Currently Unemployed: No Education: Don't Know Difficulty w/ Childcare or Family Care: No Spiritual care concerns: No <Miguel Torres MD - Last Filed: 12/23/24 18:57> Exam Narrative: GENERAL: Chronically ill-appearing, thin, and in no acute distress. HEAD: Normocephalic, atraumatic. EYES: PERRL and EOMI. ENT: Mucous membranes moist. CHEST: Clear to auscultation. No respiratory distress. HEART: Tachycardic and regular. Normal peripheral pulses. ABDOMEN: Soft, nontender, nondistended. EXTREMITIES: Normal range of motion. No edema. SKIN: Warm, dry, no rash. NEURO: Awake alert, no facial droop, flaccid paralysis on the right side. <Miguel Torres MD - Last Filed: 12/23/24 18:57> Course Course Emergency Course: Patient resting comfortably. Awaiting UA and imaging results. Will transfer care to Dr. Thorne. <Miguel Torres MD - Last Filed: 12/23/24 18:57> Patient resting comfortably. Awaiting UA and imaging results. Will transfer care to Dr. Thorne. CTA results show evolving left MCA infarct, no acute dissection, occlusion or hemorrhage. Patient is progressively worsening from his recent CVA diagnosis and needs alf placement, physical therapy evaluation, speech evaluation. He was made NPO and consult placed to the services. Spoke to the hospitalist who accepted the patient to a hospital bed at this time for further evaluation and likely placement. <Carlos A Thorne MD - Last Filed: 12/23/24 20:34> Vital Signs Vital signs: Vital Signs Temperature 36.1 C L 12/23/24 15:16 Pulse Rate 113 H 12/23/24 15:16 Respiratory Rate 16 12/23/24 15:16 Blood Pressure 136/74 12/23/24 15:16 Pulse Oximetry 95 12/23/24 15:16 Oxygen Delivery Room Air 12/23/24 15:16 Temperature 36.1 C L 12/23/24 15:16 Pulse Rate 88 12/23/24 18:00 Respiratory Rate 16 12/23/24 18:00 Blood Pressure 134/63 12/23/24 18:00 Pulse Oximetry 100 12/23/24 18:00 Oxygen Delivery Room Air 12/23/24 17:20 <Miguel Torres MD - Last Filed: 12/23/24 18:57> Vital Signs Temperature 36.1 C L 12/23/24 15:16 Pulse Rate 113 H 12/23/24 15:16 Respiratory Rate 16 12/23/24 15:16 Blood Pressure 136/74 12/23/24 15:16 Pulse Oximetry 95 12/23/24 15:16 Oxygen Delivery Room Air 12/23/24 15:16 Temperature 36.1 C L 12/23/24 15:16 Pulse Rate 88 12/23/24 18:00 Respiratory Rate 16 12/23/24 18:00 Blood Pressure 134/63 12/23/24 18:00 Pulse Oximetry 100 12/23/24 18:00 Oxygen Delivery Room Air 12/23/24 17:20 <Carlos A Thorne MD - Last Filed: 12/23/24 20:34> Medical Decision Making Vital Signs Vital Signs: Vital Signs Temperature 36.1 C L 12/23/24 15:16 Pulse Rate 113 H 12/23/24 15:16 Respiratory Rate 16 12/23/24 15:16 Blood Pressure 136/74 12/23/24 15:16 Pulse Oximetry 95 12/23/24 15:16 Oxygen Delivery Room Air 12/23/24 15:16 Temperature 36.1 C L 12/23/24 15:16 Pulse Rate 88 12/23/24 18:00 Respiratory Rate 16 12/23/24 18:00 Blood Pressure 134/63 12/23/24 18:00 Pulse Oximetry 100 12/23/24 18:00 Oxygen Delivery Room Air 12/23/24 17:20 <Miguel Torres MD - Last Filed: 12/23/24 18:57> Vital Signs Temperature 36.1 C L 12/23/24 15:16 Pulse Rate 113 H 12/23/24 15:16 Respiratory Rate 16 12/23/24 15:16 Blood Pressure 136/74 12/23/24 15:16 Pulse Oximetry 95 12/23/24 15:16 Oxygen Delivery Room Air 12/23/24 15:16 Temperature 36.1 C L 12/23/24 15:16 Pulse Rate 88 12/23/24 18:00 Respiratory Rate 16 12/23/24 18:00 Blood Pressure 134/63 12/23/24 18:00 Pulse Oximetry 100 12/23/24 18:00 Oxygen Delivery Room Air 12/23/24 17:20 <Carlos A Thorne MD - Last Filed: 12/23/24 20:34> Lab Data Result diagrams: 12/23/24 16:38 12/23/24 16:38 <Miguel Torres MD - Last Filed: 12/23/24 18:57> Labs: Lab Results 12/23/24 12/23/24 Range/Units 16:38 18:45 WBC 13.1 H (4.5-10.0) K/mm3 RBC 5.70 (4.6-6.20) M/mm3 Hgb 16.6 (14.0-18.0) g/dL Hct 51.4 (42.0-52.0) % MCV 90.2 (80-100) fl MCH 29.1 (26-34) pg MCHC 32.3 (32-36) g/dl RDW 14.2 (11.5-14.5) % Plt Count 287 (150-375) k/mm3 MPV 9.3 (7.4-10.4) fl Immature Gran % (Auto) 0.6 H (0-0.5) % Neut % (Auto) 77.3 H (45.5-73.1) % Lymph % (Auto) 10.9 L (18.3-44.2) % Craig % (Auto) 10.4 H (2.6-8.5) % Eos % (Auto) 0.4 (0-4.4) % Baso % (Auto) 0.4 (0.2-1.2) % Lymph # (Auto) 1.43 (0.9-3.2) K/mm3 Craig # (Auto) 1.4 H (0.1-0.6) K/mm3 Eos # (Auto) 0.1 (0-0.3) K/mm3 Baso # (Auto) 0.1 (0.0-0.1) K/mm3 Abs Immat Gran (auto) 0.08 H (0.00-0.031) K/mm3 Absolute Neuts (auto) 10.2 H (1.3-6.7) K/mm3 Absolute Nucleated RBC 0.000 (0.0-0.012) K/mm3 Nucleated RBC % 0.0 (0.0-0.2) % PT 19.0 H (11.1-14.7) Seconds INR 1.6 APTT 30.0 (22.3-36.8) Seconds Sodium 143 (137-145) mmol/L Potassium 4.6 (3.4-5.0) mmol/L Chloride 112 H (98-107) mmol/L Carbon Dioxide 18 L (22-30) mmol/L Anion Gap 13 H (4-12) mmol/L BUN 52 H D (9-20) mg/dL Creatinine 1.36 H (0.7-1.3) mg/dL Estim Creat Clear Calc Not Reportable Estimated GFR 50 L (59 - ) Glucose 149 H (65-110) mg/dL Calcium 10.3 H (8.4-10.2) mg/dL Total Bilirubin 0.8 (0.2-1.3) mg/dL AST 65 H (17-59) U/L ALT 66 H (6-50) U/L Alkaline Phosphatase 240 H (38-126) U/L Troponin I 0.012 (0.000-0.034) ng/mL Total Protein 9.1 H (6.3-8.2) g/dL Albumin 4.2 (3.5-5.1) g/dL Urine Color Yellow (Yellow) Urine Appearance Clear (Clear) Urine pH 5.5 (5.0-9.0) Ur Specific [place] 1.038 H (1.001-1.035) Urine Protein Trace (Negative) mg/dL Urine Glucose (UA) Negative (Negative) mg/dL Urine Ketones Negative (Negative) mg/dL Ur Blood (Man) 3+ H (Negative) Urine Nitrate Negative (Negative) Urine Bilirubin Negative (Negative) Urine Urobilinogen 1.0 (<2.0) mg/dL Leukocyte Esterase Rfl Trace H (Negative) NORA/UL Urine RBC >100 H (0-2) /hpf Urine WBC 0-5 (0-3) /hpf Ur Squamous Epith Cells None seen (Few) /hpf Urine Bacteria None seen /hpf Urine Casts 3-5 <Miguel Torres MD - Last Filed: 12/23/24 18:57> Lab Results 12/23/24 12/23/24 Range/Units 16:38 18:45 WBC 13.1 H (4.5-10.0) K/mm3 RBC 5.70 (4.6-6.20) M/mm3 Hgb 16.6 (14.0-18.0) g/dL Hct 51.4 (42.0-52.0) % MCV 90.2 (80-100) fl MCH 29.1 (26-34) pg MCHC 32.3 (32-36) g/dl RDW 14.2 (11.5-14.5) % Plt Count 287 (150-375) k/mm3 MPV 9.3 (7.4-10.4) fl Immature Gran % (Auto) 0.6 H (0-0.5) % Neut % (Auto) 77.3 H (45.5-73.1) % Lymph % (Auto) 10.9 L (18.3-44.2) % Craig % (Auto) 10.4 H (2.6-8.5) % Eos % (Auto) 0.4 (0-4.4) % Baso % (Auto) 0.4 (0.2-1.2) % Lymph # (Auto) 1.43 (0.9-3.2) K/mm3 Craig # (Auto) 1.4 H (0.1-0.6) K/mm3 Eos # (Auto) 0.1 (0-0.3) K/mm3 Baso # (Auto) 0.1 (0.0-0.1) K/mm3 Abs Immat Gran (auto) 0.08 H (0.00-0.031) K/mm3 Absolute Neuts (auto) 10.2 H (1.3-6.7) K/mm3 Absolute Nucleated RBC 0.000 (0.0-0.012) K/mm3 Nucleated RBC % 0.0 (0.0-0.2) % PT 19.0 H (11.1-14.7) Seconds INR 1.6 APTT 30.0 (22.3-36.8) Seconds Sodium 143 (137-145) mmol/L Potassium 4.6 (3.4-5.0) mmol/L Chloride 112 H (98-107) mmol/L Carbon Dioxide 18 L (22-30) mmol/L Anion Gap 13 H (4-12) mmol/L BUN 52 H D (9-20) mg/dL Creatinine 1.36 H (0.7-1.3) mg/dL Estim Creat Clear Calc Not Reportable Estimated GFR 50 L (59 - ) Glucose 149 H (65-110) mg/dL Calcium 10.3 H (8.4-10.2) mg/dL Total Bilirubin 0.8 (0.2-1.3) mg/dL AST 65 H (17-59) U/L ALT 66 H (6-50) U/L Alkaline Phosphatase 240 H (38-126) U/L Troponin I 0.012 (0.000-0.034) ng/mL Total Protein 9.1 H (6.3-8.2) g/dL Albumin 4.2 (3.5-5.1) g/dL Urine Color Yellow (Yellow) Urine Appearance Clear (Clear) Urine pH 5.5 (5.0-9.0) Ur Specific [place] 1.038 H (1.001-1.035) Urine Protein Trace (Negative) mg/dL Urine Glucose (UA) Negative (Negative) mg/dL Urine Ketones Negative (Negative) mg/dL Ur Blood (Man) 3+ H (Negative) Urine Nitrate Negative (Negative) Urine Bilirubin Negative (Negative) Urine Urobilinogen 1.0 (<2.0) mg/dL Leukocyte Esterase Rfl Trace H (Negative) NORA/UL Urine RBC >100 H (0-2) /hpf Urine WBC 0-5 (0-3) /hpf Ur Squamous Epith Cells None seen (Few) /hpf Urine Bacteria None seen /hpf Urine Casts 3-5 <Carlos A Thorne MD - Last Filed: 12/23/24 20:34> Discharge Plan Discharge Clinical Impression: Debility, Chronic cerebrovascular accident (CVA), Dysphagia <Miguel Torres MD - Last Filed: 12/23/24 18:57> Patient Disposition: Still a Patient <Miguel Torres MD - Last Filed: 12/23/24 18:57> Condition: Stable <Miguel Torres MD - Last Filed: 12/23/24 18:57> Patient Language: Nicaraguan <Miguel Torres MD - Last Filed: 12/23/24 18:57> Prescriptions: No Action atorvastatin 40 mg Tablet 40 mg PO DAILY Qty: 30 0RF Eliquis 5 mg tablet 5 mg PO BID Qty: 60 0RF <Miguel Torres MD - Last Filed: 12/23/24 18:57> Follow-up/Referrals: UNKNOWN,DOCTOR [Primary Care Provider] - <Miguel Torres MD - Last Filed: 12/23/24 18:57>
--- NOTE | 2024-12-23 17:38 | ECG_ITS ---
Test Date: 2024-12-23 19:03:09 Measurements Intervals [place] Rate: 86 P: 60 [place]: 163 QRS: 8 QRSD: 110 T: 91 QT: 379 QTc: 455 Interpretive Statements SINUS RHYTHM INCOMPLETE LEFT BUNDLE BRANCH BLOCK EARLY PRECORDIAL R/S TRANSITION INFERIOR INFARCT, AGE INDETERMINATE ANTEROLATERAL INFARCT, AGE INDETERMINATE BORDERLINE ST-T WAVE ABNORMALITY- HIGH LATERAL LEADS BASELINE ARTIFACT- I, II, III, AVR, AVL, AVF, V1-V6 ABNORMAL ECG Compared to ECG 11/06/2024 13:08:52 No significant changes Electronically Signed On 12-23-2024 20:27:33 CDT by Kevin Mayer D.O.
[2024-12-23 18:00] VITALS: BP 134/63; PULSE 88; RESP 16; O2SAT 100
[2024-12-23 19:07] LABS: Add Urine Microscopic? YES; Appearance Urine Clear (Clear); Glucose Urine UA Negative (Negative); Leukocyte Esterase Ur Trace LEU/UL (Negative); Nitrate Urine Negative (Negative); Specific Grav Ur 1.038 (1.001-1.035)
--- NOTE | 2024-12-23 21:56 | ADMGEN ---
This patient, Hugo Jeter, was admitted to [facility] Surg Room 332-02. Patient/family oriented to hospital policies and general routines including ID bracelet, bed and alarms, visiting hours, pain management, procedures, bathroom and other care routines, personal items, smoking policy, room service/diet, and visiting hours. Information on how to activate the Rapid Response Team has been discussed. Patient/Family are encouraged to report perceived risks to care and to ask questions if they do not understand what they are told or what they should do.
[2024-12-23 22:00] VITALS: BP 121/66; PULSE 92; RESP 16; TEMP 36.1; O2SAT 100
--- NOTE | 2024-12-23 22:05 | P.HP_ITS ---
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 Since being discharged and being home patient has developed almost complete flaccidity of his right side and he has been unable to swallow. Patient daughter states that family is having increased difficulty caring for him at in this current setting and they are concerned that he is going to become dehydrated. During last hospitalization it was also found that patient has a spiculated right upper lobe mass with right hilar and mediastinal lymphadenopathy present. At that time patient opted for no biopsy because he would not want any further treatment for it. Family has a held this decision. Since then patient has decompensated to the point he will only nod yes or no but does so appropriately and does not speak. In the emergency room workup was performed with normal vital signs, CBC with white blood cell count of 13.1 etiology uncertain, metabolic panel with normal sodium at 1:43 a.m., normal potassium of 4.6 renal function at 1.36 and 52 and glucose of 149. Urinalysis is pending. Chest x-ray shows chronic findings only no other acute cardiopulmonary findings. CTA of the head and neck was performed that shows no acute findings. There is evolving multifocal chronic infarct changes in the left MCA territory otherwise no new infarcts. Goals of care discussion was had at the bedside with the patient's daughter who is very knowledgeable and appropriate in the given situation and she states that the family will discuss possibility the patient needing a G-tube and they will let us know pending the results of a swallow evaluation. At this time the continue to not want any further workup for this right upper lobe mass. Patient being admitted in the current setting for evaluation with swallow evaluation. If patient fails swallow evaluation and family does not want further workup for the upper lobe mass nor G-tube, then patient will be a candidate for hospice therapy. Review of Systems Review of Systems: ROS unobtainable: Yes other (Patient does not speak only nods head yes no, but appropriately) PMF Past Medical History Medical History Left acute arterial ischemic stroke, MCA (middle cerebral artery) Arthritis Kidney stones Hernia GERD (gastroesophageal reflux disease) Myocardial infarction Surgical History Surgical History History of heart artery stent (~2003) Family History Family History Sibling Diabetes mellitus Mother Hypertension Social History Social History Smoking status: Former smoker Alcohol intake: never Substance use: never Do You Feel Safe in your Home?: Yes Lack of Transportation: YES Lack of Food: Never True Current Housing: I Have Housing Concerned About Future Housing: No Difficulty Paying Gas/Electric Bills: No Difficulty Paying for Meds: No Currently Unemployed: No Education: Don't Know Difficulty w/ Childcare or Family Care: No Spiritual care concerns: No Meds Home Medications and Allergies Home Medications ?Medication ?Instructions ?Recorded ?Confirmed ?Type apixaban 5 mg tablet (Eliquis) 5 mg PO BID #60 tabs 11/13/24 12/23/24 Rx atorvastatin 40 mg tablet 40 mg PO DAILY #30 tabs 11/13/24 12/23/24 Rx Allergies Allergy/AdvReac Type Severity Reaction Status Date / Time No Known Allergies Allergy Verified 11/06/24 17:16 Vital Signs Vital Signs - 24 hr 12/23/24 15:16 12/23/24 17:20 12/23/24 17:25 Temperature 97.0 F L Pulse Rate 113 H 90 88 Respiratory Rate 16 20 16 Blood Pressure 136/74 125/67 127/68 Pulse Oximetry 95 99 100 Oxygen Delivery Room Air Room Air 12/23/24 18:00 Temperature Pulse Rate 88 Respiratory Rate 16 Blood Pressure 134/63 Pulse Oximetry 100 Oxygen Delivery Exam Const: General: comfortable and no acute distress Other: Elderly, chronically ill-appearing male patient lying supine on stretcher at this time. No acute distress at this time. HENMT: Face/Nose/Sinus: Normal nares present Mouth: Yes dry mucous membranes Eyes: General: appearance normal, both eyes and all related structures Sclera: sclerae normal Neck: Neck: supple and no JVD Lymphatic: lymphadenopathy not noted Resp: Effort & Inspection: abnormal respiratory effort (Decreased effort) Auscultation: clear to auscultation bilaterally Cardio: Rate: regular rate Rhythm: regular rhythm Heart sounds: no gallops, no murmurs and no rubs GI: Inspection: non-distended GI Palp: Yes Soft to palpation and No Tenderness to palpation present (GI) Auscultation: normal bowel sounds Skin: General skin exam: normal color and no rashes or lesions noted Lesions: no lesions noted Rashes: no rashes noted Wounds: no wounds Neuro: Speech: No normal speech (Patient is not speaking. He nods appropriately) Motor exam (neuro): Abnormal motor strength present (Flaccid on the right side upper and lower) Extrem: General: no edema and no pedal edema Psych: Other: Unable to determine given patient is nonverbal H&P: Results Labs Labs: Short CBC 12/23/24 Range/Units 16:38 WBC 13.1 H (4.5-10.0) K/mm3 Hgb 16.6 (14.0-18.0) g/dL Hct 51.4 (42.0-52.0) % Plt Count 287 (150-375) k/mm3 BMP 12/23/24 16:38 Sodium 143 Potassium 4.6 Chloride 112 H Carbon Dioxide 18 L BUN 52 H D Creatinine 1.36 H Glucose 149 H Calcium 10.3 H Cardiac Enzymes 12/23/24 Range/Units 16:38 Troponin I 0.012 (0.000-0.034) ng/mL Liver Function 12/23/24 Range/Units 16:38 Total Bilirubin 0.8 (0.2-1.3) mg/dL AST 65 H (17-59) U/L ALT 66 H (6-50) U/L Alkaline Phosphatase 240 H (38-126) U/L Albumin 4.2 (3.5-5.1) g/dL Urine 12/23/24 Range/Units 18:45 Urine Color Yellow (Yellow) Urine Appearance Clear (Clear) Urine pH 5.5 (5.0-9.0) Ur Specific [place] 1.038 H (1.001-1.035) Urine Protein Trace (Negative) mg/dL Urine Glucose (UA) Negative (Negative) mg/dL Assessment and Plan Assessment and plan (1) Dysphagia: Code(s): R13.10 - Dysphagia, unspecified Status: Acute Assessment and Plan: * Likely a sequela to recent CVA 3 weeks ago. * CTA head and neck performed today and does not show any acute stroke. * Keep NPO * Consult speech therapy for swallow evaluation * Discussed with family that if patient fails well evaluation and or barium swallow he may need a G-tube placed. They are discussing the someone's themselves. * Consider GI consult * IV fluids of normal saline at 100 mL/hour (2) Lung mass: Code(s): R91.8 - Other nonspecific abnormal finding of lung field Status: Acute Assessment and Plan: * Found during last admission in October of 2024 patient has a spiculated right upper lobe mass with right hilar and mediastinal lymphadenopathy. Patient at that time shows no biopsy, workup or oncological referral/treatment. (3) Debility: Code(s): R53.81 - Other malaise Status: Acute Assessment and Plan: * Secondary to 1. Patient now flaccid on right side in upper and lower extremities. * Family unable to care for him at home. * Care coordination consult for placement. * Patient possible candidate for hospice. * PT/OT eval and treat * Fall precautions Quality VTE Prophylaxis VTE prophylaxis: pharmacologic ordered Hospitalist MIPS Advance Care Plan I have confirmed that the patient's Advanced Care Plan is present, code status is documented, or surrogate decision maker is listed in patient medical record.: Yes Medication Reconciliation I have utilized all available resources to obtain, update and review the patients current medications (includes all prescriptions, OTC, herbals, cannabis, and nutritional supplements).: Yes
[2024-12-23] MEDS: LACTATED RINGERS 1,000 ML 100 ML IV CONT (22:13)
[2024-12-23] MEDS: SODIUM CHLORIDE 0.9% IV 1,000 ML 100 ML IV CONT (22:46)
[2024-12-23] MEDS: ENOXAPARIN 40 MG/0.4 ML SYRINGE SUB-Q (22:51)
[2024-12-24 06:00] VITALS: BP 131/51; PULSE 84; RESP 16; TEMP 36.4; O2SAT 97
[2024-12-24 06:19] LABS: Hematocrit 47.2 % (42.0-52.0); Hemoglobin 15.0 g/dL (14.0-18.0); Immature Granulocyte Percent A 0.6 % (0-0.5); Lymphocytes Absolute Auto 1.90 K/mm3 (0.9-3.2); Mean Corpuscular HGB Conc 31.8 g/dl (32-36); Mean Corpuscular Hemoglobin 29.3 pg (26-34); Mean Corpuscular Volume 92.2 fl (80-100); Nucleated Red Blood Cells Absolute Auto 0.000 K/mm3 (0.0-0.012); Nucleated Red Blood Cells Perc 0.0 % (0.0-0.2); Platelet Count Result 254 k/mm3 (150-375); Red Blood Count 5.12 M/mm3 (4.6-6.20); White Blood Count 14.0 K/mm3 (4.5-10.0)
[2024-12-24 06:35] LABS: Potassium 4.5 mmol/L (3.4-5.0)
[2024-12-24 06:41] LABS: Alanine Aminotransferase 55 U/L (6-50); Albumin Level 3.9 g/dL (3.5-5.1); Alkaline Phosphatase 244 U/L (38-126); Anion Gap 8 mmol/L (4-12); Aspartate Amino Transferase 66 U/L (17-59); Bilirubin,Total 1.0 mg/dL (0.2-1.3); Blood Urea Nitrogen 39 mg/dL (9-20); Calcium 9.6 mg/dL (8.4-10.2); Carbon Dioxide 18 mmol/L (22-30); Chloride 115 mmol/L (98-107); Estimated Glomerular Filt Rate > 60; Glucose 104 mg/dL (65-110); Magnesium 2.5 mg/dL (1.6-2.3); Sodium 141 mmol/L (137-145); Total Protein 8.2 g/dL (6.3-8.2)
--- NOTE | 2024-12-24 08:28 | PCSTNOTE ---
Please refer to the Bedside Swallow Evaluation in the EMR. Please note, silent aspiration cannot be ruled out at bedside. The patient is an 79 year old male admitted for a CVA with right side weakness. He is know to me from his prior admission and CVA diagnosis 11/07/24. He was discharged at that time on a regular diet and thin liquid. A BSE is ordered to evaluate swallow function at this time as family is reporting decreased PO intake at home and increased right side weakness. The patient was positioned upright an oral mechanism evaluation was completed. The patient has limited lingual ROM, decreased labial seal, and speech is severely dysarthria at the single word and phrase level. The patient was previously intelligible in conversation. The patient was provided the following consistencies. Thin liquid via a tsp and puree texture. Oral Stage: Delayed oral transit and preparation, some loss of bolus due to decreased labial seal on the right. Pharyngeal stage: Delayed swallow initiation and decreased laryngeal elevation across consistencies. Vocal quality was slightly breathy but no coughing or choking was observed across consistencies. Recommend remain NPO and MBS. Physician contacted.
[2024-12-24] MEDS: SODIUM CHLORIDE 0.9% IV 1,000 ML 100 ML IV CONT ×2 (10:11→19:07)
--- NOTE | 2024-12-24 13:12 | REHSTMBS ---
Assessment and note entered by Linnette Carlton, FRONT DESK OFFICER Modified Barium Swallow Evaluation Feeding Type Recommended Oral Food Consistency Pureed, Level 4 Liquid Consistency Moderately Thick (3) Treatment Recommendations Lip ROM Exercise,Tongue Base Exercise,Tongue ROM Exercise ST Clinical Summary The patient is a 79 year old male admitted following new onset of CVA and increased right side weakness. Per family reports the patient's PO intake has declined over the past 3 weeks and he ahs had increased difficulty with swallowing. the patient was seen for a BSE with noted oral dysphagia and concerns for pharyngeal dysphagia an MBS was therefore recommended. The patient was seen in a lateral view and provided the following consistencies: 5cc/ tsp thin liquid barium, 5cc/ tsp mildly thick liquid barium, 5cc/ tsp moderately thick liquid barium and pudding mixed with barium paste. Oral Stage: The patient was viewed to have delayed oral initiation, abnormal holding of the bolus, delayed A-P lingual movement, and oral transit for all consistencies. When presented thicker consistencies the patient was viewed to have improved oral awareness and more timely oral transit secondary to reduced lingual control, ROM and coordination. When attempting 5cc thin liquid barium the patient was unable to form a bolus and had loss of the bolus from the right labial side due to reduced labial closure. Pharyngeal stage: When presented 5cc/tsp mildly thick liquid barium the patient was viewed to have trace laryngeal penetration entering the airway secondary reduced laryngeal elevation but remaining above the vocal folds. The patient was unable to follow directives to cough and clear penetrated material. In addition the patient was viewed to have moderate residual within the vallecula and mild residual in the pyriform sinus for pudding mixed with barium paste secondary to reduced lingual pressure and cricopharyngeal dysfunction. Recommend 1. Puree Diet/Level 4, Moderately thick/level 3, Upright with meals, small bites and drinks, alternate bites and drinks , 1 on 1 supervision to assure adequate intake. Recommend Speech services to address lingual/ labial ROM and use of compensatory techniques.
[2024-12-24 13:31] VITALS: BMI 18.7
[2024-12-24 14:00] VITALS: BP 145/52; PULSE 81; RESP 18; TEMP 36.1; O2SAT 99
--- NOTE | 2024-12-24 14:32 | P.PNIM_ITS ---
Progress Note: A&P Assessment and Plan (1) Dysphagia: Code(s): R13.10 - Dysphagia, unspecified Status: Acute Assessment and Plan: * Likely a sequela to recent CVA 3 weeks ago. * CTA head and neck performed and does not show any acute stroke. * Keep NPO * Consult speech therapy for swallow evaluation and started on a diet underwent MBS today * IV fluids of normal saline at 100 mL/hour (2) Lung mass: Code(s): R91.8 - Other nonspecific abnormal finding of lung field Status: Acute Assessment and Plan: * Found during last admission in October of 2024 patient has a spiculated right upper lobe mass with right hilar and mediastinal lymphadenopathy. Patient at that time shows no biopsy, workup or oncological referral/treatment. (3) Debility: Code(s): R53.81 - Other malaise Status: Acute Assessment and Plan: * Secondary to 1. Patient now flaccid on right side in upper and lower extremities. * Family unable to care for him at home. * Care coordination consult for placement. * Patient possible candidate for hospice. * PT/OT eval and treat * Fall precautions Plan Recent CVA with MRI showing multiple small acute infarcts in the left frontal and parietal lobes consistent with sharp emboli in the left middle cerebral artery vascular disease. Echo with agitated saline study showed delayed transit of bubbles from right to left suggestive of extracardiac shunt. Added Eliquis. RAY was performed which showed delayed transit of bubbles from right to left suggestive of extra cardiac sound. Consistent with intrapulmonary shunt. Further pulmonary workup was performed with CT chest which revealed 5.2 cm right upper lobe mass concerning for malignancy with right hilar and mediastinal lymph node involvement. Pulmonary on board. Decision to forego biopsy are any further workup was made with the family. DVT venous duplex lower extremities were negative. CTA for pulmonary arteriovenous malformation was planned however patient refused to do any further testing. He did not have any evidence of hypoxia. To rule out underlying hepatic disease of right upper quadrant ultrasound was performed which showed fatty liver change. He subsequently was transferred to rehabilitation where he did well and ultimately discharged home. Progressive decline and new dysphagia CTA head and neck was unremarkable. Will get MRI brain to further evaluate. Will also get EEG to rule out any underlying seizures. Will also consult Neurology. Rule out new stroke. Rule out underlying seizure from recent stroke. No signs of infection evident clinically so far. Laboratory workup does reveal mild GUI and findings of dehydration of it seems improving with IV hydration. LFTs are elevated as well DVT prophylaxis will resume apixaban Elevated liver enzymes check right upper quadrant ultrasound Hyperlipidemia on atorvastatin Code status full code Subjective Date/time seen: 12/24/24 14:32 Interval history: no overnight events, patient answers some questions, unknown baseline per records he was ambulatory post discharge last month and went home Review of Systems Review of Systems: ROS unobtainable: Yes other (Patient does not speak only nods head yes no, but appropriately) Exam Narrative: GENERAL: Chronically ill-appearing, thin, and in no acute distress. HEAD: Normocephalic, atraumatic. EYES: PERRL and EOMI. ENT: Mucous membranes moist. CHEST: Diminished breath sounds bilaterally No respiratory distress. HEART: Regular rate and rhythm Normal peripheral pulses. ABDOMEN: Soft, nontender, nondistended. EXTREMITIES: Normal range of motion. No edema. SKIN: Warm, dry, no rash. NEURO: Awake slow response follows commands no facial droop, flaccid paralysis on the right side. Objective Data Vital Signs Vital Signs: Vital Signs - 24 hr 12/23/24 15:16 12/23/24 17:20 12/23/24 17:25 Temperature 97.0 F L Pulse Rate 113 H 90 88 Respiratory Rate 16 20 16 Blood Pressure 136/74 125/67 127/68 Pulse Oximetry 95 99 100 Oxygen Delivery Room Air Room Air 12/23/24 18:00 12/23/24 22:00 12/24/24 06:00 Temperature 97.0 F L 97.6 F Pulse Rate 88 92 84 Respiratory Rate 16 16 16 Blood Pressure 134/63 121/66 131/51 L Pulse Oximetry 100 100 97 Oxygen Delivery Intake/Output Intake/Output: Intake & Output 12/21/24 12/22/24 12/23/24 12/24/24 23:59 23:59 23:59 23:59 Intake Total 1000 1240 Output Total 50 Balance 950 1240 Meds/Results Medications: Active Medications Generic Name Dose Route Start Last Admin Trade Name Freq PRN Reason Stop Dose Admin Acetaminophen 650 mg 12/23/24 20:28 Acetaminophen 325 Mg Tablet PO Q4H PRN Mild Pain (1-3) or Fever Sodium Chloride 1,000 mls @ 100 mls/hr 12/23/24 22:15 12/24/24 10:11 Normal Saline Iv IV CONT 100 mls/hr .Q10H KARL Administration Radiology Results: ITS Impressions Head/Neck CTA 12/23/24 19:26 IMPRESSION: No acute intracranial process. No large vessel intracranial occlusion, high-grade intracranial stenosis, or aneurysm. No carotid artery occlusion, dissection, or significant stenosis. 65% stenosis of the proximal left internal carotid artery at the bifurcation. Multifocal areas of calcified and noncalcified plaque throughout the left carotid system. Ulcerative appearing plaque in the right carotid bifurcation, with 19% stenosis. No vertebral artery occlusion or dissection. Severe short segment stenosis at the origin of the right vertebral artery. CT findings suggestive of chronic left maxillary sinusitis. Evolving multifocal chronic infarct changes in the left MCA territory. Chest X-Ray 12/23/24 20:21 IMPRESSION: No acute cardiopulmonary process. Chronic findings noted above. Modified Barium Swallow 12/24/24 12:26 IMPRESSION: Oropharyngeal dysphagia with episodes of laryngeal penetration without aspiration with mildly thickened liquids. Please correlate with speech pathologist findings and specific feeding recommendations. Labs Labs: Laboratory Results - last 24 hr 12/23/24 12/23/24 12/24/24 16:38 18:45 05:53 WBC 13.1 H 14.0 H RBC 5.70 5.12 Hgb 16.6 15.0 Hct 51.4 47.2 MCV 90.2 92.2 MCH 29.1 29.3 MCHC 32.3 31.8 L RDW 14.2 14.0 Plt Count 287 254 MPV 9.3 9.3 Immature Gran % (Auto) 0.6 H 0.6 H Neut % (Auto) 77.3 H 74.5 H Lymph % (Auto) 10.9 L 13.6 L [place] % (Auto) 10.4 H 10.5 H Eos % (Auto) 0.4 0.4 Baso % (Auto) 0.4 0.4 Lymph # (Auto) 1.43 1.90 [place] # (Auto) 1.4 H 1.5 H Eos # (Auto) 0.1 0.1 Baso # (Auto) 0.1 0.1 Abs Immat Gran (auto) 0.08 H 0.09 H Absolute Neuts (auto) 10.2 H 10.4 H Absolute Nucleated RBC 0.000 0.000 Nucleated RBC % 0.0 0.0 PT 19.0 H INR 1.6 APTT 30.0 Sodium 143 141 Potassium 4.6 4.5 Chloride 112 H 115 H Carbon Dioxide 18 L 18 L Anion Gap 13 H 8 BUN 52 H D 39 H D Creatinine 1.36 H 1.14 Estim Creat Clear Calc Not Reportable Not Reportable Estimated GFR 50 L > 60 Glucose 149 H 104 Calcium 10.3 H 9.6 Magnesium 2.5 H Total Bilirubin 0.8 1.0 AST 65 H 66 H ALT 66 H 55 H Alkaline Phosphatase 240 H 244 H Troponin I 0.012 Total Protein 9.1 H 8.2 Albumin 4.2 3.9 Urine Color Yellow Urine Appearance Clear Urine pH 5.5 Ur Specific [place] 1.038 H Urine Protein Trace Urine Glucose (UA) Negative Urine Ketones Negative Ur Blood (Man) 3+ H Urine Nitrate Negative Urine Bilirubin Negative Urine Urobilinogen 1.0 Leukocyte Esterase Rfl Trace H Urine RBC >100 H Urine WBC 0-5 Ur Squamous Epith Cells None seen Urine Bacteria None seen Urine Casts 3-5
[2024-12-24] MEDS: APIXABAN 5 MG TABLET PO (18:01)
[2024-12-24 21:50] VITALS: BP 134/61; PULSE 78; RESP 20; TEMP 36.8; O2SAT 99
[2024-12-25 06:00] VITALS: BP 137/56; PULSE 74; RESP 16; TEMP 36.3; O2SAT 97
[2024-12-25 06:07] LABS: Hematocrit 42.6 % (42.0-52.0); Hemoglobin 13.6 g/dL (14.0-18.0); Immature Granulocyte Percent A 0.8 % (0-0.5); Lymphocytes Absolute Auto 1.50 K/mm3 (0.9-3.2); Mean Corpuscular HGB Conc 31.9 g/dl (32-36); Mean Corpuscular Hemoglobin 29.4 pg (26-34); Mean Corpuscular Volume 92.0 fl (80-100); Nucleated Red Blood Cells Absolute Auto 0.000 K/mm3 (0.0-0.012); Nucleated Red Blood Cells Perc 0.0 % (0.0-0.2); Platelet Count Result 210 k/mm3 (150-375); Red Blood Count 4.63 M/mm3 (4.6-6.20); White Blood Count 13.3 K/mm3 (4.5-10.0)
[2024-12-25] MEDS: SODIUM CHLORIDE 0.9% IV 1,000 ML 100 ML IV CONT ×2 (06:20→19:27)
[2024-12-25 06:34] LABS: Alanine Aminotransferase 45 U/L (6-50); Albumin Level 3.4 g/dL (3.5-5.1); Alkaline Phosphatase 246 U/L (38-126); Anion Gap 6 mmol/L (4-12); Aspartate Amino Transferase 81 U/L (17-59); Bilirubin,Total 0.9 mg/dL (0.2-1.3); Blood Urea Nitrogen 29 mg/dL (9-20); Calcium 9.2 mg/dL (8.4-10.2); Carbon Dioxide 20 mmol/L (22-30); Chloride 117 mmol/L (98-107); Estimated CRCL calculation 45 ml/min; Estimated Glomerular Filt Rate > 60; Glucose 91 mg/dL (65-110); Magnesium 2.3 mg/dL (1.6-2.3); Potassium 4.1 mmol/L (3.4-5.0); Sodium 143 mmol/L (137-145); Total Protein 7.2 g/dL (6.3-8.2)
[2024-12-25 08:45] VITALS: BMI 11.0
--- NOTE | 2024-12-25 09:05 | PC.NURSE ---
Disoriented. Attempted to reach Senia Jeter, daughter, to complete MRI screening form. Message left on cell phone with call back number to [facility].
--- NOTE | 2024-12-25 10:12 | PCSTNOTE ---
12/25/24 Attempted to see 2x poorly arousable for treatment or PO intake. Called physician recommended NPO till alertness improves.
--- NOTE | 2024-12-25 10:15 | PCOTNOTE ---
Attempted to see pt. for occupational therapy evaluation. Pt. lethargic, but able to be briefly aroused and follow direction to move L UE. Pt. then repeatedly returned to sleep and unable to demonstrate consistent alertness for evaluation. Nursing aware. Following.
--- NOTE | 2024-12-25 10:45 | PC.NURSE ---
MRI Screening Form completed by telephone by Senia Jeter, daughter, and witnessed with second RN. MRI notified that screening form is completed.
--- NOTE | 2024-12-25 11:30 | P.CDI_ITS ---
CDI Query Clarification Request BMI:18.7 Nutritional Diagnostic Statement: Please refer to the comprehensive nutrition assessment for further information. If you agree with diagnosis of Severe protein calorie malnutrition related to inadequate energy intake as evidenced by poor po intake for greater than 1 month, a significant weight loss of -12% x 2 months, and NFPE findings for severe subcutaneous fat loss (cheeks, biceps) and severe muscle wasting (jehovah's witness, clavicle, shoulder, calf). Please specify severity if known: * Mild * Moderate * Severe * Other/Unknown <Jud Farley RN - Last Filed: 12/25/24 11:30> Provider Comments severe protein calorie malnutrition <Jan Pozo MD - Last Filed: 12/25/24 16:07>
[2024-12-25 14:00] VITALS: BP 128/55; PULSE 80; RESP 19; TEMP 36.2; O2SAT 96
--- NOTE | 2024-12-25 14:20 | P.PNIM_ITS ---
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 Echo with agitated saline study showed delayed transit of bubbles from right to left suggestive of extracardiac shunt. Added Eliquis. RAY was performed which showed delayed transit of bubbles from right to left suggestive of extra cardiac sound. Consistent with intrapulmonary shunt. Further pulmonary workup was performed with CT chest which revealed 5.2 cm right upper lobe mass concerning for malignancy with right hilar and mediastinal lymph node involvement. Pulmonary on board. Decision to forego biopsy are any further workup was made with the family. DVT venous duplex lower extremities were negative. CTA for pulmonary arteriovenous malformation was planned however patient refused to do any further testing. He did not have any evidence of hypoxia. To rule out underlying hepatic disease of right upper quadrant ultrasound was performed which showed fatty liver change. He subsequently was transferred to rehabilitation where he did well and ultimately discharged home. Progressive decline and new dysphagia CTA head and neck was unremarkable. Will get MRI brain to further evaluate. Will also get EEG to rule out any underlying seizures. Will also consult Neurology. Rule out new stroke. Rule out underlying seizure from recent stroke. No signs of infection evident clinically so far. Laboratory workup does reveal mild GUI and findings of dehydration of it seems improving with IV hydration. GUI and dehydration improving. LFTs are elevated as well. Right upper quadrant ultrasound unremarkable except hepatic steatosis and gallbladder sludge LFTs improving/stable DVT prophylaxis will resume apixaban Elevated liver enzymes check right upper quadrant ultrasound Dysphagia currently NPO and on IV fluids rule out new stroke neurology consult Hyperlipidemia on atorvastatin Code status full code Subjective Date/time seen: 12/25/24 14:20 Interval history: No overnight events. Patient does not talk. Follow some commands. Review of Systems Review of Systems: ROS unobtainable: Yes unobtainable due to medical condition Exam Narrative: GENERAL: Chronically ill-appearing, thin, and in no acute distress. HEAD: Normocephalic, atraumatic. EYES: PERRL and EOMI. ENT: Mucous membranes moist. CHEST: Diminished breath sounds bilaterally No respiratory distress. HEART: Regular rate and rhythm Normal peripheral pulses. ABDOMEN: Soft, nontender, nondistended. EXTREMITIES: Normal range of motion. No edema. SKIN: Warm, dry, no rash. NEURO: Awake slow response follows commands no facial droop, flaccid paralysis on the right side. Objective Data Vital Signs Vital Signs: Vital Signs - 24 hr 12/24/24 20:00 12/24/24 21:50 12/25/24 06:00 Temperature 98.2 F 97.4 F L Pulse Rate 78 74 Respiratory Rate 20 16 Blood Pressure 134/61 137/56 L Pulse Oximetry 99 97 Oxygen Delivery Room Air 12/25/24 08:00 12/25/24 08:45 Temperature Pulse Rate Respiratory Rate Blood Pressure Pulse Oximetry Oxygen Delivery Room Air Room Air Intake/Output Intake/Output: Intake & Output 12/22/24 12/23/24 12/24/24 12/25/24 23:59 23:59 23:59 23:59 Intake Total 1000 2373.3 1000 Output Total 50 Balance 950 2373.3 1000 Meds/Results Medications: Active Medications Generic Name Dose Route Start Last Admin Trade Name Freq PRN Reason Stop Dose Admin Acetaminophen 650 mg 12/23/24 20:28 Acetaminophen 325 Mg Tablet PO Q4H PRN Mild Pain (1-3) or Fever Apixaban 5 mg 12/24/24 17:00 12/25/24 10:09 Apixaban 5 Mg Tablet PO Not Given BID [facility] Atorvastatin Calcium 40 mg 12/25/24 09:00 12/25/24 10:09 Atorvastatin 40 Mg Tablet PO Not Given DAILY [facility] Sodium Chloride 1,000 mls @ 100 mls/hr 12/23/24 22:15 12/25/24 06:20 Normal Saline Iv IV CONT 100 mls/hr .Q10H [facility] Administration Radiology Results: ITS Impressions Head/Neck CTA 12/23/24 19:26 IMPRESSION: No acute intracranial process. No large vessel intracranial occlusion, high-grade intracranial stenosis, or aneurysm. No carotid artery occlusion, dissection, or significant stenosis. 65% stenosis of the proximal left internal carotid artery at the bifurcation. Multifocal areas of calcified and noncalcified plaque throughout the left carotid system. Ulcerative appearing plaque in the right carotid bifurcation, with 19% stenosis. No vertebral artery occlusion or dissection. Severe short segment stenosis at the origin of the right vertebral artery. CT findings suggestive of chronic left maxillary sinusitis. Evolving multifocal chronic infarct changes in the left MCA territory. Chest X-Ray 12/23/24 20:21 IMPRESSION: No acute cardiopulmonary process. Chronic findings noted above. Modified Barium Swallow 12/24/24 12:26 IMPRESSION: Oropharyngeal dysphagia with episodes of laryngeal penetration without aspiration with mildly thickened liquids. Please correlate with speech pathologist findings and specific feeding recommendations. Upper Quadrant Ultrasound 12/25/24 09:26 IMPRESSION: 1: Fatty infiltration of the liver. 2: Gallbladder sludge. Labs Labs: Laboratory Results - last 24 hr 12/25/24 05:59 WBC 13.3 H RBC 4.63 Hgb 13.6 L Hct 42.6 MCV 92.0 MCH 29.4 MCHC 31.9 L RDW 14.4 Plt Count 210 MPV 9.5 Immature Gran % (Auto) 0.8 H Neut % (Auto) 76.1 H Lymph % (Auto) 11.3 L [place] % (Auto) 11.1 H Eos % (Auto) 0.4 Baso % (Auto) 0.3 Lymph # (Auto) 1.50 [place] # (Auto) 1.5 H Eos # (Auto) 0.1 Baso # (Auto) 0.0 Abs Immat Gran (auto) 0.10 H Absolute Neuts (auto) 10.1 H Absolute Nucleated RBC 0.000 Nucleated RBC % 0.0 Sodium 143 Potassium 4.1 Chloride 117 H Carbon Dioxide 20 L Anion Gap 6 BUN 29 H D Creatinine 0.99 Estim Creat Clear Calc 45 Estimated GFR > 60 Glucose 91 Calcium 9.2 Magnesium 2.3 Total Bilirubin 0.9 AST 81 H ALT 45 Alkaline Phosphatase 246 H Total Protein 7.2 Albumin 3.4 L
--- NOTE | 2024-12-25 14:29 | P.CONNEU_ITS ---
Assessment and Plan Assessment and plan (1) Dysphagia: Code(s): R13.10 - Dysphagia, unspecified Status: Acute (2) Chronic cerebrovascular accident (CVA): Code(s): Z86.73 - Personal history of transient ischemic attack (TIA), and cerebral infarction without residual deficits Status: Acute (3) Lung mass: Code(s): R91.8 - Other nonspecific abnormal finding of lung field Status: Acute (4) Left acute arterial ischemic stroke, MCA (middle cerebral artery): Code(s): I63.512 - Cerebral infarction due to unspecified occlusion or stenosis of left middle cerebral artery Status: Acute Plan 1. status post left hemispheric stroke with right hemiparesis and aphasia 2. Generalized deconditioning 3. History of carcinoma of the lung for which patient has declined the intervention 4. Increasing dysphagia with debility 5. Evaluation at the time of previous stroke documented abnormal echocardiogram with the possibility of intrapulmonary shunt 6. Repeat MRI is being considered for the recurrence of the stroke number 6. Possibility of seizures likely from the previous stroke for which EEG is being considered. Plan to complete the evaluation and appraised the family and make further decision about the ongoing care. Consult date: 12/25/24 HPI: Hugo Jeter is a 79 year old male Admitted to the hospital through the emergency room for the complaints of progressive decline at home. Patient has ongoing diagnosis of pulmonary mass and stroke and his general condition has been progressively declining. He is not allergic to any medication, he has history of left hemispheric stroke with right hemiparesis, history of myocardial infarction, and arthritis. He has had coronary stenting in 2003, he is a former alcohol intake, and currently every day smoker. On initial exam in the emergency room he was found to be chronically ill, with obvious right-sided neurological deficit. His vital signs were normal, CBC was with WBC 13.1, BMP with BUN of 52 and creatinine of 1.36, UA with 3+ blood and more than 100 RBCs head and neck CTA with 65% stenosis of the proximal left internal carotid artery along with the multifocal areas of calcified and noncalcified plaque throughout the left carotid system, ulcerative plaque in the right carotid with 19% stenosis, posterior circulation reveals severe short-segment stenosis at the origin of the right vertebral artery, at present he is being continued on apixaban 5mg b.i.d. along with atorvastatin 40mg daily, family is concerned about the dehydration, he has also been found to have speculated right upper extremity lobe mass with right hilar and mediastinal lymphadenopathy for which no biopsy was done because patient was not inclined to do so, patient's family is considering the possibility of the G-tube though no further intervention for the pulmonary mass is being considered by the family Review of Systems 2 Review of Systems: All systems reviewed & are unremarkable except as noted in HPI and below PMFSH Past Medical History Medical History Left acute arterial ischemic stroke, MCA (middle cerebral artery) Arthritis Kidney stones Hernia GERD (gastroesophageal reflux disease) Myocardial infarction Surgical History Surgical History History of heart artery stent (~2003) Family History Family History Sibling Diabetes mellitus Mother Hypertension Social History Social History Smoking status: Former smoker Alcohol intake: never Substance use: never Do You Feel Safe in your Home?: Yes Lack of Transportation: YES Lack of Food: Never True Current Housing: I Have Housing Concerned About Future Housing: No Difficulty Paying Gas/Electric Bills: No Difficulty Paying for Meds: No Currently Unemployed: No Education: Don't Know Difficulty w/ Childcare or Family Care: No Spiritual care concerns: No Meds Home Medications and Allergies Home Medications ?Medication ?Instructions ?Recorded ?Confirmed ?Type apixaban 5 mg tablet (Eliquis) 5 mg PO BID #60 tabs 11/13/24 12/23/24 Rx atorvastatin 40 mg tablet 40 mg PO DAILY #30 tabs 11/13/24 12/23/24 Rx Allergies Allergy/AdvReac Type Severity Reaction Status Date / Time No Known Allergies Allergy Verified 11/06/24 17:16 Vital Signs Vital Signs - 24 hr 12/24/24 20:00 12/24/24 21:50 12/25/24 06:00 Temperature 36.8 C 36.3 C L Pulse Rate 78 74 Respiratory Rate 20 16 Blood Pressure 134/61 137/56 L Pulse Oximetry 99 97 Oxygen Delivery Room Air 12/25/24 08:00 12/25/24 08:45 Temperature Pulse Rate Respiratory Rate Blood Pressure Pulse Oximetry Oxygen Delivery Room Air Room Air Exam 2 Narrative: on examination today he is unresponsive to verbal commands laying in bed with eyes open in no obvious acute distress, he is obviously right hemiparetic, head normocephalic with no cranial bruits, ear nose throat examination with no responses to the visual stimuli or to the verbal stimuli neck is supple with bruit heart regular with no murmur lungs with decreased breath sounds, abdomen is soft no abnormal bowel sounds, neurologically he is laying in bed not responding to the verbal stimuli but on painful stimuli he does move his left side, pupils round regular feels the vision could not be reliably checked he did not respond to threat stimuli, extraocular movements were spontaneously full only in the horizontal gaze, facial grimace was present on deep sternal rub tongue was in the oral cavity and motor examination revealed him to be right hemiparetic with asymmetrical deep tendon reflexes and upgoing right-sided plantar response. Results Labs 12/25/24 05:59 12/25/24 05:59 Labs: Short CBC 12/25/24 Range/Units 05:59 WBC 13.3 H (4.5-10.0) K/mm3 Hgb 13.6 L (14.0-18.0) g/dL Hct 42.6 (42.0-52.0) % Plt Count 210 (150-375) k/mm3 BMP 12/25/24 05:59 Sodium 143 Potassium 4.1 Chloride 117 H Carbon Dioxide 20 L BUN 29 H D Creatinine 0.99 Glucose 91 Calcium 9.2 Liver Function 12/25/24 Range/Units 05:59 Total Bilirubin 0.9 (0.2-1.3) mg/dL AST 81 H (17-59) U/L ALT 45 (6-50) U/L Alkaline Phosphatase 246 H (38-126) U/L Albumin 3.4 L (3.5-5.1) g/dL
--- NOTE | 2024-12-25 14:52 | WPDNEUROLOGY ---
Neurology EEG Report General Information Date of Study: 12/25/24 TEST EEG DIAGNOSIS Status post left hemispheric stroke with acute changes in the mental status and history of carcinoma of the lung with recent decline in general condition CONDITION OF RECORDING obtunded unable to follow the verbal commands. EEG NUMBER [id number] CLINICAL HISTORY 79 years old male has been diagnosed to have pulmonary malignancy in addition to having had and left hemispheric stroke about 3 weeks ago admitted for the generalized decline in the condition. EEG DESCRIPTION Background rhythm consists of asymmetrical left hemispheric 5 to 7 hertz per 2nd low to medium voltage theta admixed with 3 to 4 hertz per 2nd delta activity without any paroxysmal phenomenon. 8 to 10 hertz per 2nd alpha is seen posteriorly over the right hemispheric linkages admixed with intermittent 6 to 7 hertz per 2nd theta activity. Non paroxysmal. Focal. Lateralizing. IMPRESSION Abnormal record due to the presence of left hemispheric slow activity without any paroxysmal phenomena consistent with the focal structural lesion but again without evidence of any active seizures. Clinical correlation recommended.
[2024-12-25] MEDS: ENOXAPARIN 60 MG/0.6 ML SYRINGE SUB-Q (15:33)
[2024-12-25 21:42] VITALS: BP 141/58; PULSE 81; RESP 16; TEMP 36.9; O2SAT 99
[2024-12-26] MEDS: ENOXAPARIN 60 MG/0.6 ML SYRINGE SUB-Q ×2 (03:09→14:37)
[2024-12-26] MEDS: SODIUM CHLORIDE 0.9% IV 1,000 ML 100 ML IV CONT ×2 (05:54→16:16)
[2024-12-26 06:00] VITALS: BP 143/61; PULSE 80; RESP 18; TEMP 36.9; O2SAT 99
[2024-12-26 08:00] VITALS: PULSE 80; RESP 18; O2SAT 99
--- NOTE | 2024-12-26 09:09 | PCSTNOTE ---
12/26/24 Patient remains poorly responsive for therapy at this time. Continue to hold.
--- NOTE | 2024-12-26 11:20 | PC.NURSE ---
Family at bedside. Updated on current condition. Verbalized understanding of information discussed.
--- NOTE | 2024-12-26 11:30 | PCOTNOTE ---
Attempted to see pt. for occupational therapy evaluation. Nurse, Yolanda Kimball reports taht pt. is unable to follow directions and stay alert consistently due to lethargy. Agreable to call if/when pt. becomes alert enough to safely participate in evaluation. Family currently in room. Following.
[2024-12-26 14:00] VITALS: BP 142/58; PULSE 76; RESP 18; TEMP 36.8; O2SAT 96
--- NOTE | 2024-12-26 14:28 | P.PNIM_ITS ---
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 Echo with agitated saline study showed delayed transit of bubbles from right to left suggestive of extracardiac shunt. Added Eliquis. RAY was performed which showed delayed transit of bubbles from right to left suggestive of extra cardiac sound. Consistent with intrapulmonary shunt. Further pulmonary workup was performed with CT chest which revealed 5.2 cm right upper lobe mass concerning for malignancy with right hilar and mediastinal lymph node involvement. Pulmonary on board. Decision to forego biopsy are any further workup was made with the family. DVT venous duplex lower extremities were negative. CTA for pulmonary arteriovenous malformation was planned however patient refused to do any further testing. He did not have any evidence of hypoxia. To rule out underlying hepatic disease of right upper quadrant ultrasound was performed which showed fatty liver change. He subsequently was transferred to rehabilitation where he did well and ultimately discharged home. Progressive decline and new dysphagia CTA head and neck was unremarkable. Will get MRI brain to further evaluate. Will also get EEG to rule out any underlying seizures. Will also consult Neurology. Rule out new stroke. Rule out underlying seizure from recent stroke. No signs of infection evident clinically so far. Laboratory workup does reveal mild GUI and findings of dehydration of it seems improving with IV hydration. GUI and dehydration improving. LFTs are elevated as well. Right upper quadrant ultrasound unremarkable except hepatic steatosis and gallbladder sludge LFTs improving/stable DVT prophylaxis will resume apixaban Elevated liver enzymes check right upper quadrant ultrasound Dysphagia currently NPO and on IV fluids rule out new stroke neurology consult Hyperlipidemia on atorvastatin Code status DNR today discuss with patient family and now patient is DNR and family is in discussion with health care attorney for hospice care, will follow up. Subjective Date/time seen: 12/26/24 14:28 Interval history: No overnight events. Patient does not talk. Follow some commands. today discuss with patient family and now patient is DNR and family is in discussion with health care attorney for hospice care, will follow up. Review of Systems Review of Systems: ROS unobtainable: Yes unobtainable due to medical condition and other (Patient does not speak only nods head yes no, but appropriately) Exam Narrative: Patient is comfortable, NAD HEENT: eyes are clear and none icteric LUNGS:CTA HEART: RR S1S2 ABD: BS+, Soft and nontender Lower extremities: no edema SKIN: nonjaundiced Neuro: Confused Objective Data Vital Signs Vital Signs: Vital Signs - 24 hr 12/25/24 20:00 12/25/24 21:42 12/26/24 06:00 Temperature 36.9 C 36.9 C Pulse Rate 81 80 Respiratory Rate 16 18 Blood Pressure 141/58 H 143/61 H Pulse Oximetry 99 99 Oxygen Delivery Room Air 12/26/24 08:00 12/26/24 14:00 Temperature 36.8 C Pulse Rate 80 76 Respiratory Rate 18 18 Blood Pressure 142/58 H Pulse Oximetry 99 96 Oxygen Delivery Room Air Intake/Output Intake/Output: Intake & Output 12/23/24 12/24/24 12/25/24 12/26/24 23:59 23:59 23:59 23:59 Intake Total 1000 2373.3 1999 1000 Output Total 50 Balance 950 2373.3 1999 1000 Meds/Results Medications: Active Medications Generic Name Dose Route Start Last Admin Trade Name Freq PRN Reason Stop Dose Admin Acetaminophen 650 mg 12/23/24 20:28 Acetaminophen 325 Mg Tablet PO Q4H PRN Mild Pain (1-3) or Fever Apixaban 5 mg 12/24/24 17:00 12/25/24 10:09 Apixaban 5 Mg Tablet PO Not Given BID [facility] Atorvastatin Calcium 40 mg 12/25/24 09:00 12/26/24 08:39 Atorvastatin 40 Mg Tablet PO Not Given DAILY [facility] Enoxaparin Sodium 60 mg 12/25/24 15:00 12/26/24 03:09 Enoxaparin 60 Mg/0.6 Ml Syringe SUB-Q 60 mg Q12H [facility] Administration Sodium Chloride 1,000 mls @ 100 mls/hr 12/23/24 22:15 12/26/24 05:54 Normal Saline Iv IV CONT 100 mls/hr .Q10H [facility] Administration Radiology Results: ITS Impressions Head/Neck CTA 12/23/24 19:26 IMPRESSION: No acute intracranial process. No large vessel intracranial occlusion, high-grade intracranial stenosis, or aneurysm. No carotid artery occlusion, dissection, or significant stenosis. 65% stenosis of the proximal left internal carotid artery at the bifurcation. Multifocal areas of calcified and noncalcified plaque throughout the left carotid system. Ulcerative appearing plaque in the right carotid bifurcation, with 19% stenosis. No vertebral artery occlusion or dissection. Severe short segment stenosis at the origin of the right vertebral artery. CT findings suggestive of chronic left maxillary sinusitis. Evolving multifocal chronic infarct changes in the left MCA territory. Chest X-Ray 12/23/24 20:21 IMPRESSION: No acute cardiopulmonary process. Chronic findings noted above. Modified Barium Swallow 12/24/24 12:26 IMPRESSION: Oropharyngeal dysphagia with episodes of laryngeal penetration without aspiration with mildly thickened liquids. Please correlate with speech pathologist findings and specific feeding recommendations. Upper Quadrant Ultrasound 12/25/24 09:26 IMPRESSION: 1: Fatty infiltration of the liver. 2: Gallbladder sludge. Brain MRI 12/25/24 14:14 IMPRESSION: 1. Likely recurrent acute infarcts now more extensive and confluent in the same left frontal, parietal and occipital regions at the site of the previously smaller scattered acute infarcts evident on the MRI from 2 months prior also in the left internal cerebral vasculature artery distribution. There is new loss of the normal flow void in the intracranial left internal carotid artery which could be seen with occlusion or slow flow. A 65% stenosis was noted at the left carotid bulb on CT angiogram dated 12/23/2024 on which there is also suggestion of a possible dissection flap which could predispose towards recurrent thrombosis. 2. New small acute infarct in the left cerebral hemisphere. Quality VTE Prophylaxis VTE prophylaxis: pharmacologic ordered
[2024-12-26 21:39] VITALS: BP 137/59; PULSE 84; RESP 20; TEMP 36.9; O2SAT 98
[2024-12-27] MEDS: ENOXAPARIN 60 MG/0.6 ML SYRINGE SUB-Q ×2 (02:06→15:37)
[2024-12-27] MEDS: SODIUM CHLORIDE 0.9% IV 1,000 ML 100 ML IV CONT ×3 (02:15→22:19)
[2024-12-27 06:00] VITALS: BP 144/62; PULSE 83; RESP 20; TEMP 36.8; O2SAT 97
--- NOTE | 2024-12-27 10:37 | PCNFU ---
Nutrition Follow-Up Complete: Severe protein calorie malnutrition related to inadequate energy intake as evidenced by poor po intake for greater than 1 month, a significant weight loss of -12% x 2 months, and NFPE findings for severe subcutaneous fat loss (cheeks, biceps) and severe muscle wasting (pentecostalism, clavicle, shoulder, calf) diet order - Not progressing PO intake - Not progressing Goal: Pt current nutrition is NPO. Nutrition recommendation: Current plan is likely to discharge on hospice without further aggressive nutrition interventions for dysphagia. Please call dietitians if aggressive nutrition intervention, such as NG or PEG tube feeding, is decided upon Last recorded weight is 60.9 kg. Bowel Motility: No BMs are recorded Labs Reviewed: Lo labs since 12/25 Meds Noted: Eliquis, lovenox Skin: No skin issues Additional Notes: Per RN, likely comfort care/hospice discharge soon s/t recurrent strokes. Will follow till discharge. Call if plan to place NG feeding tube or PEG. Monitor for diet orders, intake, wt, labs. Follow up in 3 days.
[2024-12-27 14:00] VITALS: BP 147/57; PULSE 83; RESP 19; TEMP 36.5; O2SAT 96
--- NOTE | 2024-12-27 15:55 | PCOTNOTE ---
Per RN, pt is somnolent and likely going hospice tomorrow. Not appropriate for therapy at this time.
--- NOTE | 2024-12-27 17:43 | P.PNIM_ITS ---
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 Echo with agitated saline study showed delayed transit of bubbles from right to left suggestive of extracardiac shunt. Added Eliquis. RAY was performed which showed delayed transit of bubbles from right to left suggestive of extra cardiac sound. Consistent with intrapulmonary shunt. Further pulmonary workup was performed with CT chest which revealed 5.2 cm right upper lobe mass concerning for malignancy with right hilar and mediastinal lymph node involvement. Pulmonary on board. Decision to forego biopsy are any further workup was made with the family. DVT venous duplex lower extremities were negative. CTA for pulmonary arteriovenous malformation was planned however patient refused to do any further testing. He did not have any evidence of hypoxia. To rule out underlying hepatic disease of right upper quadrant ultrasound was performed which showed fatty liver change. He subsequently was transferred to rehabilitation where he did well and ultimately discharged home. Progressive decline and new dysphagia CTA head and neck was unremarkable. Will get MRI brain to further evaluate. Will also get EEG to rule out any underlying seizures. Will also consult Neurology. Rule out new stroke. Rule out underlying seizure from recent stroke. No signs of infection evident clinically so far. Laboratory workup does reveal mild GUI and findings of dehydration of it seems improving with IV hydration. GUI and dehydration improving. LFTs are elevated as well. Right upper quadrant ultrasound unremarkable except hepatic steatosis and gallbladder sludge LFTs improving/stable DVT prophylaxis will resume apixaban Elevated liver enzymes check right upper quadrant ultrasound Dysphagia currently NPO and on IV fluids rule out new stroke neurology consult Hyperlipidemia on atorvastatin Code status DNR No overnight events. Patient does not talk. Follow some commands. on 11/25 discussed with patient family and now patient is DNR and family is in discussion with primary health care nurse for hospice care, will follow up. Subjective Date/time seen: 12/27/24 17:43 Interval history: No overnight events. Patient does not talk. Follow some commands. on 11/25 discussed with patient family and now patient is DNR and family is in discussion with primary health care nurse for hospice care, will follow up. Review of Systems Review of Systems: ROS unobtainable: Yes unobtainable due to medical condition Exam Narrative: Patient is comfortable, NAD HEENT: eyes are clear and none icteric LUNGS:CTA HEART: RR S1S2 ABD: BS+, Soft and nontender Lower extremities: no edema SKIN: nonjaundiced Neuro: Confused Objective Data Vital Signs Vital Signs: Vital Signs - 24 hr 12/26/24 21:39 12/27/24 06:00 12/27/24 08:30 Temperature 36.9 C 36.8 C Pulse Rate 84 83 Respiratory Rate 20 20 Blood Pressure 137/59 L 144/62 H Pulse Oximetry 98 97 Oxygen Delivery Room Air 12/27/24 14:00 Temperature 36.5 C Pulse Rate 83 Respiratory Rate 19 Blood Pressure 147/57 H Pulse Oximetry 96 Oxygen Delivery Intake/Output Intake/Output: Intake & Output 12/24/24 12/25/24 12/26/24 12/27/24 23:59 23:59 23:59 23:59 Intake Total 2373.3 1999 1999 1997.3 Output Total 210 900 Balance 2373.3 1999 1790 1098.3 Meds/Results Medications: Active Medications Generic Name Dose Route Start Last Admin Trade Name Freq PRN Reason Stop Dose Admin Acetaminophen 650 mg 12/23/24 20:28 Acetaminophen 325 Mg Tablet PO Q4H PRN Mild Pain (1-3) or Fever Apixaban 5 mg 12/24/24 17:00 12/25/24 10:09 Apixaban 5 Mg Tablet PO Not Given BID [facility] Atorvastatin Calcium 40 mg 12/25/24 09:00 12/27/24 08:27 Atorvastatin 40 Mg Tablet PO Not Given DAILY KARL Enoxaparin Sodium 60 mg 12/25/24 15:00 12/27/24 15:37 Enoxaparin 60 Mg/0.6 Ml Syringe SUB-Q 60 mg Q12H KARL Administration Sodium Chloride 1,000 mls @ 100 mls/hr 12/23/24 22:15 12/27/24 12:17 Normal Saline Iv IV CONT 100 mls/hr .Q10H KARL Administration Radiology Results: ITS Impressions Head/Neck CTA 12/23/24 19:26 IMPRESSION: No acute intracranial process. No large vessel intracranial occlusion, high-grade intracranial stenosis, or aneurysm. No carotid artery occlusion, dissection, or significant stenosis. 65% stenosis of the proximal left internal carotid artery at the bifurcation. Multifocal areas of calcified and noncalcified plaque throughout the left carotid system. Ulcerative appearing plaque in the right carotid bifurcation, with 19% stenosis. No vertebral artery occlusion or dissection. Severe short segment stenosis at the origin of the right vertebral artery. CT findings suggestive of chronic left maxillary sinusitis. Evolving multifocal chronic infarct changes in the left MCA territory. Chest X-Ray 12/23/24 20:21 IMPRESSION: No acute cardiopulmonary process. Chronic findings noted above. Modified Barium Swallow 12/24/24 12:26 IMPRESSION: Oropharyngeal dysphagia with episodes of laryngeal penetration without aspiration with mildly thickened liquids. Please correlate with speech pathologist findings and specific feeding recommendations. Upper Quadrant Ultrasound 12/25/24 09:26 IMPRESSION: 1: Fatty infiltration of the liver. 2: Gallbladder sludge. Brain MRI 12/25/24 14:14 IMPRESSION: 1. Likely recurrent acute infarcts now more extensive and confluent in the same left frontal, parietal and occipital regions at the site of the previously smaller scattered acute infarcts evident on the MRI from 2 months prior also in the left internal cerebral vasculature artery distribution. There is new loss of the normal flow void in the intracranial left internal carotid artery which could be seen with occlusion or slow flow. A 65% stenosis was noted at the left carotid bulb on CT angiogram dated 12/23/2024 on which there is also suggestion of a possible dissection flap which could predispose towards recurrent thrombosis. 2. New small acute infarct in the left cerebral hemisphere. Quality VTE Prophylaxis VTE prophylaxis: pharmacologic ordered
[2024-12-27 22:00] VITALS: BP 139/47; PULSE 75; RESP 16; TEMP 36.5; O2SAT 98
[2024-12-28] MEDS: ENOXAPARIN 60 MG/0.6 ML SYRINGE SUB-Q ×2 (03:30→16:47)
[2024-12-28 06:00] VITALS: BP 152/65; PULSE 89; RESP 18; TEMP 36.6; O2SAT 98
[2024-12-28] MEDS: SODIUM CHLORIDE 0.9% IV 1,000 ML 100 ML IV CONT ×2 (08:33→18:50)
--- NOTE | 2024-12-28 10:24 | PCOTNOTE ---
Pt is somnolent still and will be transitioning to hospice care so no further skilled acute OT needs at this time. Will d/c the order.
[2024-12-28 11:16] VITALS: O2SAT 96
--- NOTE | 2024-12-28 13:00 | PC.NURSE ---
[facility] at bedside with family.
--- NOTE | 2024-12-28 13:58 | PC.NURSE ---
Lizandro Valerio dub room engineer, spoke with Carolina, in Care Coordination regarding plan of care.
[2024-12-28 14:00] VITALS: BP 166/69; PULSE 87; RESP 20; TEMP 36.4; O2SAT 97
--- NOTE | 2024-12-28 17:43 | P.PNIM_ITS ---
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 Echo with agitated saline study showed delayed transit of bubbles from right to left suggestive of extracardiac shunt. Added Eliquis. RAY was performed which showed delayed transit of bubbles from right to left suggestive of extra cardiac sound. Consistent with intrapulmonary shunt. Further pulmonary workup was performed with CT chest which revealed 5.2 cm right upper lobe mass concerning for malignancy with right hilar and mediastinal lymph node involvement. Pulmonary on board. Decision to forego biopsy are any further workup was made with the family. DVT venous duplex lower extremities were negative. CTA for pulmonary arteriovenous malformation was planned however patient refused to do any further testing. He did not have any evidence of hypoxia. To rule out underlying hepatic disease of right upper quadrant ultrasound was performed which showed fatty liver change. He subsequently was transferred to rehabilitation where he did well and ultimately discharged home. Progressive decline and new dysphagia CTA head and neck was unremarkable. Will get MRI brain to further evaluate. Will also get EEG to rule out any underlying seizures. Will also consult Neurology. Rule out new stroke. Rule out underlying seizure from recent stroke. No signs of infection evident clinically so far. Laboratory workup does reveal mild GUI and findings of dehydration of it seems improving with IV hydration. GUI and dehydration improving. LFTs are elevated as well. Right upper quadrant ultrasound unremarkable except hepatic steatosis and gallbladder sludge LFTs improving/stable DVT prophylaxis will resume apixaban Elevated liver enzymes check right upper quadrant ultrasound Dysphagia currently NPO and on IV fluids rule out new stroke neurology consult Hyperlipidemia on atorvastatin Code status DNR No overnight events. Patient does not talk. Follow some commands. on 11/25 discussed with patient family and now patient is DNR and family is in discussion with primary health care nurse for hospice care, meanwhile, will place patient under comfort measures, will follow up. Subjective Date/time seen: 12/28/24 17:43 Interval history: No overnight events. Patient does not talk. Follow some commands. on 11/25 discussed with patient family and now patient is DNR and family is in discussion with primary health care nurse for hospice care, meanwhile, will place patient under comfort measures, will follow up. Review of Systems 2 Review of Systems: ROS unobtainable: Yes unobtainable due to medical condition Exam Narrative: Patient is comfortable, NAD HEENT: eyes are clear and none icteric LUNGS:CTA HEART: RR S1S2 ABD: BS+, Soft and nontender Lower extremities: no edema SKIN: nonjaundiced Neuro: Confused Objective Data Vital Signs Vital Signs: Vital Signs - 24 hr 12/27/24 22:00 12/28/24 06:00 12/28/24 07:30 Temperature 36.5 C 36.6 C Pulse Rate 75 89 Respiratory Rate 16 18 Blood Pressure 139/47 L 152/65 H Pulse Oximetry 98 98 Oxygen Delivery Room Air 12/28/24 11:16 12/28/24 14:00 Temperature 36.4 C L Pulse Rate 87 Respiratory Rate 20 Blood Pressure 166/69 H Pulse Oximetry 96 97 Oxygen Delivery Room Air Intake/Output Intake/Output: Intake & Output 12/25/24 12/26/24 12/27/24 12/28/24 23:59 23:59 23:59 23:59 Intake Total 1999 1999 2998.3 1000 Output Total 210 1450 1400 Balance 1999 1790 1548.3 -400 Meds/Results Medications: Active Medications Generic Name Dose Route Start Last Admin Trade Name Freq PRN Reason Stop Dose Admin Acetaminophen 650 mg 12/23/24 20:28 Acetaminophen 325 Mg Tablet PO Q4H PRN Mild Pain (1-3) or Fever Apixaban 5 mg 12/28/24 21:00 Apixaban 5 Mg Tablet PO Q12HR [facility] Atorvastatin Calcium 40 mg 12/25/24 09:00 12/28/24 08:35 Atorvastatin 40 Mg Tablet PO Not Given DAILY [facility] Atropine Sulfate 1 - 2 drop 12/28/24 16:20 Atropine Sulfate 1% Ophth Soln 5 Ml Bottle SUBLINGUAL Q4H PRN Secretions Sodium Chloride 1,000 mls @ 100 mls/hr 12/23/24 22:15 12/28/24 08:33 Normal Saline Iv IV CONT 100 mls/hr .Q10H KARL Administration Lorazepam 0.5 mg 12/28/24 16:20 Lorazepam Inj (*Crx) 2 Mg/Ml Vial IV PUSH Q2H PRN Anxiety/Comfort Morphine Sulfate 0.5 mg 12/28/24 16:20 Morphine Sulfate (*Crx) 2 Mg/Ml Inj IV PUSH Q30M PRN COMFORT Radiology Results: ITS Impressions Head/Neck CTA 12/23/24 19:26 IMPRESSION: No acute intracranial process. No large vessel intracranial occlusion, high-grade intracranial stenosis, or aneurysm. No carotid artery occlusion, dissection, or significant stenosis. 65% stenosis of the proximal left internal carotid artery at the bifurcation. Multifocal areas of calcified and noncalcified plaque throughout the left carotid system. Ulcerative appearing plaque in the right carotid bifurcation, with 19% stenosis. No vertebral artery occlusion or dissection. Severe short segment stenosis at th e origin of the right vertebral artery. CT findings suggestive of chronic left maxillary sinusitis. Evolving multifocal chronic infarct changes in the left MCA territory. Chest X-Ray 12/23/24 20:21 IMPRESSION: No acute cardiopulmonary process. Chronic findings noted above. Modified Barium Swallow 12/24/24 12:26 IMPRESSION: Oropharyngeal dysphagia with episodes of laryngeal penetration without aspiration with mildly thickened liquids. Please correlate with speech pathologist findings and specific feeding recommendations. Upper Quadrant Ultrasound 12/25/24 09:26 IMPRESSION: 1: Fatty infiltration of the liver. 2: Gallbladder sludge. Brain MRI 12/25/24 14:14 IMPRESSION: 1. Likely recurrent acute infarcts now more extensive and confluent in the same left frontal, parietal and occipital regions at the site of the previously smaller scattered acute infarcts evident on the MRI from 2 months prior also in the left internal cerebral vasculature artery distribution. There is new loss of the normal flow void in the intracranial left internal carotid artery which could be seen with occlusion or slow flow. A 65% stenosis was noted at the left carotid bulb on CT angiogram dated 12/23/2024 on which there is also suggestion of a possible dissection flap which could predispose towards recurrent thrombosis. 2. New small acute infarct in the left cerebral hemisphere. Quality VTE Prophylaxis VTE prophylaxis: pharmacologic ordered
[2024-12-28 22:00] VITALS: BP 158/68; PULSE 93; RESP 16; TEMP 36.5; O2SAT 98
[2024-12-29] MEDS: SODIUM CHLORIDE 0.9% IV 1,000 ML 100 ML IV CONT ×2 (04:30→14:37)
[2024-12-29 06:00] VITALS: BP 152/58; PULSE 93; RESP 13; TEMP 36.3; O2SAT 100
--- NOTE | 2024-12-29 14:16 | PM.IMPN ---
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 Echo with agitated saline study showed delayed transit of bubbles from right to left suggestive of extracardiac shunt. Added Eliquis. RAY was performed which showed delayed transit of bubbles from right to left suggestive of extra cardiac sound. Consistent with intrapulmonary shunt. Further pulmonary workup was performed with CT chest which revealed 5.2 cm right upper lobe mass concerning for malignancy with right hilar and mediastinal lymph node involvement. Pulmonary on board. Decision to forego biopsy are any further workup was made with the family. DVT venous duplex lower extremities were negative. CTA for pulmonary arteriovenous malformation was planned however patient refused to do any further testing. He did not have any evidence of hypoxia. To rule out underlying hepatic disease of right upper quadrant ultrasound was performed which showed fatty liver change. He subsequently was transferred to rehabilitation where he did well and ultimately discharged home. Progressive decline and new dysphagia CTA head and neck was unremarkable. Will get MRI brain to further evaluate. Will also get EEG to rule out any underlying seizures. Will also consult Neurology. Rule out new stroke. Rule out underlying seizure from recent stroke. No signs of infection evident clinically so far. Laboratory workup does reveal mild GUI and findings of dehydration of it seems improving with IV hydration. GUI and dehydration improving. LFTs are elevated as well. Right upper quadrant ultrasound unremarkable except hepatic steatosis and gallbladder sludge LFTs improving/stable DVT prophylaxis will resume apixaban Elevated liver enzymes check right upper quadrant ultrasound Dysphagia currently NPO and on IV fluids rule out new stroke neurology consult Hyperlipidemia on atorvastatin Code status DNR No overnight events. Patient does not talk. Follow some commands. on 11/25 discussed with patient family and now patient is DNR and family is in discussion with care process manager for hospice care, meanwhile, will place patient under comfort measures, waiting for placement, will follow up. Subjective Date/time seen: 12/29/24 14:16 Interval history: No overnight events. Patient does not talk. Follow some commands. on 11/25 discussed with patient family and now patient is DNR and family is in discussion with care process manager for hospice care, meanwhile, will place patient under comfort measures, waiting for placement, will follow up. Review of Systems Review of Systems: ROS unobtainable: Yes unobtainable due to medical condition and other (Patient does not speak only nods head yes no, but appropriately) Exam Narrative: Patient is comfortable, NAD HEENT: eyes are clear and none icteric LUNGS:CTA HEART: RR S1S2 ABD: BS+, Soft and nontender Lower extremities: no edema SKIN: nonjaundiced Neuro: Confused Objective Data Vital Signs Vital Signs: Vital Signs - 24 hr 12/28/24 20:00 12/28/24 22:00 12/29/24 06:00 Temperature 36.5 C 36.3 C L Pulse Rate 93 93 Respiratory Rate 16 13 Blood Pressure 158/68 H 152/58 H Pulse Oximetry 98 100 Oxygen Delivery Room Air 12/29/24 08:10 Temperature Pulse Rate Respiratory Rate Blood Pressure Pulse Oximetry Oxygen Delivery Room Air Intake/Output Intake/Output: Intake & Output 12/26/24 12/27/24 12/28/24 12/29/24 23:59 23:59 23:59 23:59 Intake Total 1999 2998.3 2000 966.7 Output Total 210 1450 1400 800 Balance 1790 1548.3 600 166.7 Meds/Results Medications: Active Medications Generic Name Dose Route Start Last Admin Trade Name Freq PRN Reason Stop Dose Admin Acetaminophen 650 mg 12/23/24 20:28 Acetaminophen 325 Mg Tablet PO Q4H PRN Mild Pain (1-3) or Fever Apixaban 5 mg 12/28/24 21:00 12/29/24 11:32 Apixaban 5 Mg Tablet PO Not Given Q12HR KAR[facility] Atorvastatin Calcium 40 mg 12/25/24 09:00 12/29/24 11:32 Atorvastatin 40 Mg Tablet PO Not Given DAILY [facility]AR[facility] Atropine Sulfate 1 - 2 drop 12/28/24 16:20 Atropine Sulfate 1% Ophth Soln 5 Ml Bottle SUBLINGUAL Q4H PRN Secretions Sodium Chloride 1,000 mls @ 100 mls/hr 12/23/24 22:15 12/29/24 04:30 Normal Saline Iv IV CONT 100 mls/hr .Q10H KARL Administration Lorazepam 0.5 mg 12/28/24 16:20 Lorazepam Inj (*Crx) 2 Mg/Ml Vial IV PUSH Q2H PRN Anxiety/Comfort Morphine Sulfate 0.5 mg 12/28/24 16:20 Morphine Sulfate (*Crx) 2 Mg/Ml Inj IV PUSH Q30M PRN COMFORT Radiology Results: ITS Impressions Head/Neck CTA 12/23/24 19:26 IMPRESSION: No acute intracranial process. No large vessel intracranial occlusion, high-grade intracranial stenosis, or aneurysm. No carotid artery occlusion, dissection, or significant stenosis. 65% stenosis of the proximal left internal carotid artery at the bifurcation. Multifocal areas of calcified and noncalcified plaque throughout the left carotid system. Ulcerative appearing plaque in the right carotid bifurcation, with 19% stenosis. No vertebral artery occlusion or dissection. Severe short segment stenosis at the origin of the right vertebral artery. CT findings suggestive of chronic left maxillary sinusitis. Evolving multifocal chronic infarct changes in the left MCA territory. Chest X-Ray 12/23/24 20:21 IMPRESSION: No acute cardiopulmonary process. Chronic findings noted above. Modified Barium Swallow 12/24/24 12:26 IMPRESSION: Oropharyngeal dysphagia with episodes of laryngeal penetration without aspiration with mildly thickened liquids. Please correlate with speech pathologist findings and specific feeding recommendations. Upper Quadrant Ultrasound 12/25/24 09:26 IMPRESSION: 1: Fatty infiltration of the liver. 2: Gallbladder sludge. Brain MRI 12/25/24 14:14 IMPRESSION: 1. Likely recurrent acute infarcts now more extensive and confluent in the same left frontal, parietal and occipital regions at the site of the previously smaller scattered acute infarcts evident on the MRI from 2 months prior also in the left internal cerebral vasculature artery distribution. There is new loss of the normal flow void in the intracranial left internal carotid artery which could be seen with occlusion or slow flow. A 65% stenosis was noted at the left carotid bulb on CT angiogram dated 12/23/2024 on which there is also suggestion of a possible dissection flap which could predispose towards recurrent thrombosis. 2. New small acute infarct in the left cerebral hemisphere. Quality VTE Prophylaxis VTE prophylaxis: pharmacologic ordered
[2024-12-29 14:42] VITALS: BP 149/77; PULSE 107; RESP 16; TEMP 37; O2SAT 96
[2024-12-29 22:00] VITALS: BP 145/79; PULSE 101; RESP 17; TEMP 36.8; O2SAT 98
[2024-12-29 22:41] VITALS: O2SAT 98
[2024-12-30] MEDS: SODIUM CHLORIDE 0.9% IV 1,000 ML 100 ML IV CONT ×3 (00:50→21:35)
[2024-12-30 06:00] VITALS: BP 149/79; PULSE 103; RESP 18; TEMP 36.6; O2SAT 98
--- NOTE | 2024-12-30 13:16 | P.PNIM_ITS ---
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 Echo with agitated saline study showed delayed transit of bubbles from right to left suggestive of extracardiac shunt. Added Eliquis. RAY was performed which showed delayed transit of bubbles from right to left suggestive of extra cardiac sound. Consistent with intrapulmonary shunt. Further pulmonary workup was performed with CT chest which revealed 5.2 cm right upper lobe mass concerning for malignancy with right hilar and mediastinal lymph node involvement. Pulmonary on board. Decision to forego biopsy are any further workup was made with the family. DVT venous duplex lower extremities were negative. CTA for pulmonary arteriovenous malformation was planned however patient refused to do any further testing. He did not have any evidence of hypoxia. To rule out underlying hepatic disease of right upper quadrant ultrasound was performed which showed fatty liver change. He subsequently was transferred to rehabilitation where he did well and ultimately discharged home. Progressive decline and new dysphagia CTA head and neck was unremarkable. Will get MRI brain to further evaluate. Will also get EEG to rule out any underlying seizures. Will also consult Neurology. Rule out new stroke. Rule out underlying seizure from recent stroke. No signs of infection evident clinically so far. Laboratory workup does reveal mild GUI and findings of dehydration of it seems improving with IV hydration. GUI and dehydration improving. LFTs are elevated as well. Right upper quadrant ultrasound unremarkable except hepatic steatosis and gallbladder sludge LFTs improving/stable DVT prophylaxis will resume apixaban Elevated liver enzymes check right upper quadrant ultrasound Dysphagia currently NPO and on IV fluids rule out new stroke neurology consult Hyperlipidemia on atorvastatin Code status DNR No overnight events. Patient does not talk. Follow some commands. on 11/25 discussed with patient family and now patient is DNR and family is in discussion with direct care supervisor for hospice care, meanwhile, patient is under comfort measures, waiting for placement, will follow up. Subjective Date/time seen: 12/30/24 13:16 Interval history: No overnight events. Patient does not talk. Follow some commands. on 11/25 discussed with patient family and now patient is DNR and family is in discussion with direct care supervisor for hospice care, meanwhile, patient is under comfort measures, waiting for placement, will follow up. Review of Systems Review of Systems: ROS unobtainable: Yes unobtainable due to medical condition and other (Patient does not speak only nods head yes no, but appropriately) Exam Narrative: Patient is comfortable, NAD HEENT: eyes are clear and none icteric LUNGS:CTA HEART: RR S1S2 ABD: BS+, Soft and nontender Lower extremities: no edema SKIN: nonjaundiced Neuro: Confused Objective Data Vital Signs Vital Signs: Vital Signs - 24 hr 12/29/24 14:42 12/29/24 20:00 12/29/24 22:00 Temperature 37.0 C 36.8 C Pulse Rate 107 H 101 H Respiratory Rate 16 17 Blood Pressure 149/77 H 145/79 H Pulse Oximetry 96 98 Oxygen Delivery Room Air 12/29/24 22:41 12/30/24 06:00 Temperature 36.6 C Pulse Rate 103 H Respiratory Rate 18 Blood Pressure 149/79 H Pulse Oximetry 98 98 Oxygen Delivery Room Air Intake/Output Intake/Output: Intake & Output 12/27/24 12/28/24 12/29/24 12/30/24 23:59 23:59 23:59 23:59 Intake Total 2998.3 2000 1966.7 2000 Output Total 1450 1400 1700 900 Balance 1548.3 600 266.7 1100 Meds/Results Medications: Active Medications Generic Name Dose Route Start Last Admin Trade Name Freq PRN Reason Stop Dose Admin Acetaminophen 650 mg 12/23/24 20:28 Acetaminophen 325 Mg Tablet PO Q4H PRN Mild Pain (1-3) or Fever Apixaban 5 mg 12/28/24 21:00 12/30/24 10:55 Apixaban 5 Mg Tablet PO Not Given Q12HR KARL Atorvastatin Calcium 40 mg 12/25/24 09:00 12/30/24 10:55 Atorvastatin 40 Mg Tablet PO Not Given DAILY KARL Atropine Sulfate 1 - 2 drop 12/28/24 16:20 Atropine Sulfate 1% Ophth Soln 5 Ml Bottle SUBLINGUAL Q4H PRN Secretions Sodium Chloride 1,000 mls @ 100 mls/hr 12/23/24 22:15 12/30/24 10:56 Normal Saline Iv IV CONT 100 mls/hr .Q10H KARL Administration Lorazepam 0.5 mg 12/28/24 16:20 Lorazepam Inj (*Crx) 2 Mg/Ml Vial IV PUSH Q2H PRN Anxiety/Comfort Morphine Sulfate 0.5 mg 12/28/24 16:20 Morphine Sulfate (*Crx) 2 Mg/Ml Inj IV PUSH Q30M PRN COMFORT Radiology Results: ITS Impressions Head/Neck CTA 12/23/24 19:26 IMPRESSION: No acute intracranial process. No large vessel intracranial occlusion, high-grade intracranial stenosis, or aneurysm. No carotid artery occlusion, dissection, or significant stenosis. 65% stenosis of the proximal left internal carotid artery at the bifurcation. Multifocal areas of calcified and noncalcified plaque throughout the left carotid system. Ulcerative appearing plaque in the right carotid bifurcation, with 19% stenosis. No vertebral artery occlusion or dissection. Severe short segment stenosis at the origin of the right vertebral artery. CT findings suggestive of chronic left maxillary sinusitis. Evolving multifocal chronic infarct changes in the left MCA territory. Chest X-Ray 12/23/24 20:21 IMPRESSION: No acute cardiopulmonary process. Chronic findings noted above. Modified Barium Swallow 12/24/24 12:26 IMPRESSION: Oropharyngeal dysphagia with episodes of laryngeal penetration without aspiration with mildly thickened liquids. Please correlate with speech pathologist findings and specific feeding recommendations. Upper Quadrant Ultrasound 12/25/24 09:26 IMPRESSION: 1: Fatty infiltration of the liver. 2: Gallbladder sludge. Brain MRI 12/25/24 14:14 IMPRESSION: 1. Likely recurrent acute infarcts now more extensive and confluent in the same left frontal, parietal and occipital regions at the site of the previously smaller scattered acute infarcts evident on the MRI from 2 months prior also in the left internal cerebral vasculature artery distribution. There is new loss of the normal flow void in the intracranial left internal carotid artery which could be seen with occlusion or slow flow. A 65% stenosis was noted at the left carotid bulb on CT angiogram dated 12/23/2024 on which there is also suggestion of a possible dissection flap which could predispose towards recurrent thrombosis. 2. New small acute infarct in the left cerebral hemisphere. Quality VTE Prophylaxis VTE prophylaxis: pharmacologic ordered
[2024-12-30 14:00] VITALS: BP 134/61; PULSE 95; RESP 16; TEMP 38.2; O2SAT 95
[2024-12-30 14:50] VITALS: TEMP 38.2
[2024-12-30] MEDS: ACETAMINOPHEN 650 MG SUPPOSITORY RECTAL (14:50)
[2024-12-30 15:50] VITALS: TEMP 36.9
[2024-12-30 22:00] VITALS: BP 129/64; PULSE 91; RESP 17; TEMP 36.8; O2SAT 94
[2024-12-31 06:00] VITALS: BP 122/71; PULSE 91; RESP 16; TEMP 36.7; O2SAT 92
[2024-12-31] MEDS: SODIUM CHLORIDE 0.9% IV 1,000 ML 100 ML IV CONT ×2 (06:46→16:41)
--- NOTE | 2024-12-31 11:06 | PCNFU ---
Nutrition Follow-Up Complete: Severe protein calorie malnutrition related to inadequate energy intake as evidenced by poor po intake for greater than 1 month, a significant weight loss of -12% x 2 months, and NFPE findings for severe subcutaneous fat loss (cheeks, biceps) and severe muscle wasting (rastafarian, clavicle, shoulder, calf) Goal:diet order - Not progressing PO intake - Not progressing Pt current nutrition is NPO. Nutrition recommendation: Current plan is likely to discharge on hospice without further aggressive nutrition interventions for dysphagia. Please call dietitians if aggressive nutrition intervention, such as NG or PEG tube feeding, is decided upon Last recorded weight is 60.9 kg. Bowel Motility: No BMs are recorded Labs Reviewed: Lo labs since 12/25 Meds Noted: Eliquis, lovenox Skin: No skin issues Additional Notes: Per RN, comfort care/hospice discharge soon s/t recurrent strokes. Will follow till discharge. Call if plan to place NG feeding tube or PEG. Monitor for diet orders, intake, wt, labs. Follow up in 3 days.
[2024-12-31 14:00] VITALS: BP 151/58; PULSE 92; RESP 16; TEMP 37.1; O2SAT 100
--- NOTE | 2024-12-31 15:47 | PM.IMPN ---
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 Echo with agitated saline study showed delayed transit of bubbles from right to left suggestive of extracardiac shunt. Added Eliquis. RAY was performed which showed delayed transit of bubbles from right to left suggestive of extra cardiac sound. Consistent with intrapulmonary shunt. Further pulmonary workup was performed with CT chest which revealed 5.2 cm right upper lobe mass concerning for malignancy with right hilar and mediastinal lymph node involvement. Pulmonary on board. Decision to forego biopsy are any further workup was made with the family. DVT venous duplex lower extremities were negative. CTA for pulmonary arteriovenous malformation was planned however patient refused to do any further testing. He did not have any evidence of hypoxia. To rule out underlying hepatic disease of right upper quadrant ultrasound was performed which showed fatty liver change. He subsequently was transferred to rehabilitation where he did well and ultimately discharged home. Progressive decline and new dysphagia CTA head and neck was unremarkable. Will get MRI brain to further evaluate. Will also get EEG to rule out any underlying seizures. Will also consult Neurology. Rule out new stroke. Rule out underlying seizure from recent stroke. No signs of infection evident clinically so far. Laboratory workup does reveal mild GUI and findings of dehydration of it seems improving with IV hydration. GUI and dehydration improving. LFTs are elevated as well. Right upper quadrant ultrasound unremarkable except hepatic steatosis and gallbladder sludge LFTs improving/stable DVT prophylaxis will resume apixaban Elevated liver enzymes check right upper quadrant ultrasound Dysphagia currently NPO and on IV fluids rule out new stroke neurology consult Hyperlipidemia on atorvastatin Code status DNR No overnight events. Patient does not talk. Follow some commands. on 11/25 discussed with patient family and now patient is DNR and family is in discussion with customer care representative for hospice care, meanwhile, patient is under comfort measures, still waiting for placement, will follow up. Subjective Date/time seen: 12/31/24 15:47 Interval history: No overnight events. Patient does not talk. Follow some commands. on 11/25 discussed with patient family and now patient is DNR and family is in discussion with customer care representative for hospice care, meanwhile, patient is under comfort measures, still waiting for placement, will follow up. Review of Systems Review of Systems: ROS unobtainable: Yes unobtainable due to medical condition and other (Patient does not speak only nods head yes no, but appropriately) Exam Narrative: Patient is comfortable, NAD HEENT: eyes are clear and none icteric LUNGS:CTA HEART: RR S1S2 ABD: BS+, Soft and nontender Lower extremities: no edema SKIN: nonjaundiced Neuro: Confused Objective Data Vital Signs Vital Signs: Vital Signs - 24 hr 12/30/24 15:50 12/30/24 20:00 12/30/24 22:00 Temperature 36.9 C 36.8 C Pulse Rate 91 Respiratory Rate 17 Blood Pressure 129/64 Pulse Oximetry 94 Oxygen Delivery Room Air 12/31/24 06:00 12/31/24 08:00 12/31/24 14:00 Temperature 36.7 C 37.1 C Pulse Rate 91 92 Respiratory Rate 16 16 Blood Pressure 122/71 151/58 H Pulse Oximetry 92 100 Oxygen Delivery Room Air Intake/Output Intake/Output: Intake & Output 12/28/24 12/29/24 12/30/24 12/31/24 23:59 23:59 23:59 23:59 Intake Total 1999 1966.7 3000 918.3 Output Total 1400 1700 1400 600 Balance 600 266.7 1600 318.3 Meds/Results Medications: Active Medications Generic Name Dose Route Start Last Admin Trade Name Freq PRN Reason Stop Dose Admin Acetaminophen 650 mg 12/30/24 14:13 12/30/24 14:50 Acetaminophen 650 Mg Suppository RECTAL 650 mg Q6H PRN Administration Mild Pain (1-3) or Fever Apixaban 5 mg 12/28/24 21:00 12/31/24 09:25 Apixaban 5 Mg Tablet PO Not Given Q12HR KARL Atorvastatin Calcium 40 mg 12/25/24 09:00 12/31/24 09:25 Atorvastatin 40 Mg Tablet PO Not Given DAILY KARL Atropine Sulfate 1 - 2 drop 12/28/24 16:20 Atropine Sulfate 1% Ophth Soln 5 Ml Bottle SUBLINGUAL Q4H PRN Secretions Sodium Chloride 1,000 mls @ 100 mls/hr 12/23/24 22:15 12/31/24 06:46 Normal Saline Iv IV CONT 100 mls/hr .Q10H KARL Administration Lorazepam 0.5 mg 12/28/24 16:20 Lorazepam Inj (*Crx) 2 Mg/Ml Vial IV PUSH Q2H PRN Anxiety/Comfort Morphine Sulfate 0.5 mg 12/28/24 16:20 Morphine Sulfate (*Crx) 2 Mg/Ml Inj IV PUSH Q30M PRN COMFORT Radiology Results: ITS Impressions Head/Neck CTA 12/23/24 19:26 IMPRESSION: No acute intracranial process. No large vessel intracranial occlusion, high-grade intracranial stenosis, or aneurysm. No carotid artery occlusion, dissection, or significant stenosis. 65% stenosis of the proximal left internal carotid artery at the bifurcation. Multifocal areas of calcified and noncalcified plaque throughout the left carotid system. Ulcerative appearing plaque in the right carotid bifurcation, with 19% stenosis. No vertebral artery occlusion or dissection. Severe short segment stenosis at the origin of the right vertebral artery. CT findings suggestive of chronic left maxillary sinusitis. Evolving multifocal chronic infarct changes in the left MCA territory. Chest X-Ray 12/23/24 20:21 IMPRESSION: No acute cardiopulmonary process. Chronic findings noted above. Modified Barium Swallow 12/24/24 12:26 IMPRESSION: Oropharyngeal dysphagia with episodes of laryngeal penetration without aspiration with mildly thickened liquids. Please correlate with speech pathologist findings and specific feeding recommendations. Upper Quadrant Ultrasound 12/25/24 09:26 IMPRESSION: 1: Fatty infiltration of the liver. 2: Gallbladder sludge. Brain MRI 12/25/24 14:14 IMPRESSION: 1. Likely recurrent acute infarcts now more extensive and confluent in the same left frontal, parietal and occipital regions at the site of the previously smaller scattered acute infarcts evident on the MRI from 2 months prior also in the left internal cerebral vasculature artery distribution. There is new loss of the normal flow void in the intracranial left internal carotid artery which could be seen with occlusion or slow flow. A 65% stenosis was noted at the left carotid bulb on CT angiogram dated 12/23/2024 on which there is also suggestion of a possible dissection flap which could predispose towards recurrent thrombosis. 2. New small acute infarct in the left cerebral hemisphere. Quality VTE Prophylaxis VTE prophylaxis: pharmacologic ordered
[2024-12-31 22:00] VITALS: BP 149/61; PULSE 95; RESP 16; TEMP 36.9; O2SAT 99
[2025-01-01] MEDS: SODIUM CHLORIDE 0.9% IV 1,000 ML 100 ML IV CONT ×3 (01:56→22:34)
[2025-01-01 06:00] VITALS: BP 142/73; PULSE 88; RESP 18; TEMP 37.1; O2SAT 100
--- NOTE | 2025-01-01 13:33 | P.PNIM_ITS ---
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 Echo with agitated saline study showed delayed transit of bubbles from right to left suggestive of extracardiac shunt. Added Eliquis. RAY was performed which showed delayed transit of bubbles from right to left suggestive of extra cardiac sound. Consistent with intrapulmonary shunt. Further pulmonary workup was performed with CT chest which revealed 5.2 cm right upper lobe mass concerning for malignancy with right hilar and mediastinal lymph node involvement. Pulmonary on board. Decision to forego biopsy are any further workup was made with the family. DVT venous duplex lower extremities were negative. CTA for pulmonary arteriovenous malformation was planned however patient refused to do any further testing. He did not have any evidence of hypoxia. To rule out underlying hepatic disease of right upper quadrant ultrasound was performed which showed fatty liver change. He subsequently was transferred to rehabilitation where he did well and ultimately discharged home. Progressive decline and new dysphagia CTA head and neck was unremarkable. Will get MRI brain to further evaluate. Will also get EEG to rule out any underlying seizures. Will also consult Neurology. Rule out new stroke. Rule out underlying seizure from recent stroke. No signs of infection evident clinically so far. Laboratory workup does reveal mild GUI and findings of dehydration of it seems improving with IV hydration. GUI and dehydration improving. LFTs are elevated as well. Right upper quadrant ultrasound unremarkable except hepatic steatosis and gallbladder sludge LFTs improving/stable DVT prophylaxis will resume apixaban Elevated liver enzymes check right upper quadrant ultrasound Dysphagia currently NPO and on IV fluids rule out new stroke neurology consult Hyperlipidemia on atorvastatin Code status DNR No overnight events. Patient does not talk. Follow some commands. on 11/25 discussed with patient family and now patient is DNR and family is in discussion with managed care manager for hospice care, meanwhile, patient is under comfort measures, still waiting for placement, family is looking will follow up. Subjective Date/time seen: 01/01/25 13:33 Interval history: No overnight events. Patient does not talk. Follow some commands. on 11/25 discussed with patient family and now patient is DNR and family is in discussion with managed care manager for hospice care, meanwhile, patient is under comfort measures, still waiting for placement, family is looking will follow up. Review of Systems Review of Systems: ROS unobtainable: Yes unobtainable due to medical condition and other (Patient does not speak only nods head yes no, but appropriately) Exam Narrative: Patient is comfortable, NAD HEENT: eyes are clear and none icteric LUNGS:CTA HEART: RR S1S2 ABD: BS+, Soft and nontender Lower extremities: no edema SKIN: nonjaundiced Neuro: Confused Objective Data Vital Signs Vital Signs: Vital Signs - 24 hr 12/31/24 14:00 12/31/24 20:00 12/31/24 22:00 Temperature 37.1 C 36.9 C Pulse Rate 92 95 Respiratory Rate 16 16 Blood Pressure 151/58 H 149/61 H Pulse Oximetry 100 99 Oxygen Delivery Room Air 01/01/25 06:00 01/01/25 08:00 Temperature 37.1 C Pulse Rate 88 Respiratory Rate 18 Blood Pressure 142/73 H Pulse Oximetry 100 Oxygen Delivery Room Air Intake/Output Intake/Output: Intake & Output 12/29/24 12/30/24 12/31/24 01/01/25 23:59 23:59 23:59 23:59 Intake Total 1966.7 3000 1910.0 1925 Output Total 1700 1400 1300 900 Balance 266.7 1600 610.0 1025 Meds/Results Medications: Active Medications Generic Name Dose Route Start Last Admin Trade Name Freq PRN Reason Stop Dose Admin Acetaminophen 650 mg 12/30/24 14:13 12/30/24 14:50 Acetaminophen 650 Mg Suppository RECTAL 650 mg Q6H PRN Administration Mild Pain (1-3) or Fever Apixaban 5 mg 12/28/24 21:00 01/01/25 10:22 Apixaban 5 Mg Tablet PO Not Given Q12HR KARL Atorvastatin Calcium 40 mg 12/25/24 09:00 01/01/25 10:22 Atorvastatin 40 Mg Tablet PO Not Given DAILY KARL Atropine Sulfate 1 - 2 drop 12/28/24 16:20 Atropine Sulfate 1% Ophth Soln 5 Ml Bottle SUBLINGUAL Q4H PRN Secretions Sodium Chloride 1,000 mls @ 100 mls/hr 12/23/24 22:15 01/01/25 12:16 Normal Saline Iv IV CONT 100 mls/hr .Q10H KARL Administration Lorazepam 0.5 mg 12/28/24 16:20 Lorazepam Inj (*Crx) 2 Mg/Ml Vial IV PUSH Q2H PRN Anxiety/Comfort Morphine Sulfate 0.5 mg 12/28/24 16:20 Morphine Sulfate (*Crx) 2 Mg/Ml Inj IV PUSH Q30M PRN COMFORT Radiology Results: ITS Impressions Head/Neck CTA 12/23/24 19:26 IMPRESSION: No acute intracranial process. No large vessel intracranial occlusion, high-grade intracranial stenosis, or aneurysm. No carotid artery occlusion, dissection, or significant stenosis. 65% stenosis of the proximal left internal carotid artery at the bifurcation. Multifocal areas of calcified and noncalcified plaque throughout the left carotid system. Ulcerative appearing plaque in the right carotid bifurcation, with 19% stenosis. No vertebral artery occlusion or dissection. Severe short segment stenosis at the origin of the right vertebral artery. CT findings suggestive of chronic left maxillary sinusitis. Evolving multifocal chronic infarct changes in the left MCA territory. Chest X-Ray 12/23/24 20:21 IMPRESSION: No acute cardiopulmonary process. Chronic findings noted above. Modified Barium Swallow 12/24/24 12:26 IMPRESSION: Oropharyngeal dysphagia with episodes of laryngeal penetration without aspiration with mildly thickened liquids. Please correlate with speech pathologist findings and specific feeding recommendations. Upper Quadrant Ultrasound 12/25/24 09:26 IMPRESSION: 1: Fatty infiltration of the liver. 2: Gallbladder sludge. Brain MRI 12/25/24 14:14 IMPRESSION: 1. Likely recurrent acute infarcts now more extensive and confluent in the same left frontal, parietal and occipital regions at the site of the previously smaller scattered acute infarcts evident on the MRI from 2 months prior also in the left internal cerebral vasculature artery distribution. There is new loss of the normal flow void in the intracranial left internal carotid artery which could be seen with occlusion or slow flow. A 65% stenosis was noted at the left carotid bulb on CT angiogram dated 12/23/2024 on which there is also suggestion of a possible dissection flap which could predispose towards recurrent thrombosis. 2. New small acute infarct in the left cerebral hemisphere. Quality VTE Prophylaxis VTE prophylaxis: pharmacologic ordered
[2025-01-01 14:00] VITALS: BP 120/51; PULSE 95; RESP 18; TEMP 36.2; O2SAT 100
[2025-01-01 20:00] VITALS: PULSE 95; RESP 18; O2SAT 100
[2025-01-01] MEDS: APIXABAN 5 MG TABLET PO (20:45)
[2025-01-01 22:00] VITALS: BP 118/55; PULSE 97; RESP 16; TEMP 36.4; O2SAT 99
[2025-01-02 06:00] VITALS: BP 114/59; PULSE 88; RESP 17; TEMP 36.3; O2SAT 100
[2025-01-02] MEDS: SODIUM CHLORIDE 0.9% IV 1,000 ML 100 ML IV CONT (08:49)
[2025-01-02] MEDS: MORPHINE SULFATE (*CRX) 2 MG/ML INJ 0.5 MG IV PUSH (13:28)
--- NOTE | 2025-01-02 13:56 | PM.IMPN ---
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 Echo with agitated saline study showed delayed transit of bubbles from right to left suggestive of extracardiac shunt. Added Eliquis. RAY was performed which showed delayed transit of bubbles from right to left suggestive of extra cardiac sound. Consistent with intrapulmonary shunt. Further pulmonary workup was performed with CT chest which revealed 5.2 cm right upper lobe mass concerning for malignancy with right hilar and mediastinal lymph node involvement. Pulmonary on board. Decision to forego biopsy are any further workup was made with the family. DVT venous duplex lower extremities were negative. CTA for pulmonary arteriovenous malformation was planned however patient refused to do any further testing. He did not have any evidence of hypoxia. To rule out underlying hepatic disease of right upper quadrant ultrasound was performed which showed fatty liver change. He subsequently was transferred to rehabilitation where he did well and ultimately discharged home. Progressive decline and new dysphagia CTA head and neck was unremarkable. Will get MRI brain to further evaluate. Will also get EEG to rule out any underlying seizures. Will also consult Neurology. Rule out new stroke. Rule out underlying seizure from recent stroke. No signs of infection evident clinically so far. Laboratory workup does reveal mild GUI and findings of dehydration of it seems improving with IV hydration. GUI and dehydration improving. LFTs are elevated as well. Right upper quadrant ultrasound unremarkable except hepatic steatosis and gallbladder sludge LFTs improving/stable DVT prophylaxis will resume apixaban Elevated liver enzymes check right upper quadrant ultrasound Dysphagia currently NPO and on IV fluids rule out new stroke neurology consult Hyperlipidemia on atorvastatin Code status DNR No overnight events. Patient does not talk. Follow some commands. on 11/25 discussed with patient family and now patient is DNR and family is in discussion with [facility] coronary care unit for hospice care, meanwhile, patient is under comfort measures, still waiting for placement, family is looking for a place will follow up. Subjective Date/time seen: 01/02/25 13:56 Interval history: No overnight events. Patient does not talk. Follow some commands. on 11/25 discussed with patient family and now patient is DNR and family is in discussion with rn coronary care unit for hospice care, meanwhile, patient is under comfort measures, still waiting for placement, family is looking for a place will follow up. Review of Systems Review of Systems: ROS unobtainable: Yes unobtainable due to medical condition and other (Patient does not speak only nods head yes no, but appropriately) Exam Narrative: Patient is comfortable, NAD HEENT: eyes are clear and none icteric LUNGS:CTA HEART: RR S1S2 ABD: BS+, Soft and nontender Lower extremities: no edema SKIN: nonjaundiced Neuro: Confused Objective Data Vital Signs Vital Signs: Vital Signs - 24 hr 01/01/25 14:00 01/01/25 20:00 01/01/25 22:00 Temperature 36.2 C L 36.4 C L Pulse Rate 95 95 97 Respiratory Rate 18 18 16 Blood Pressure 120/51 L 118/55 L Pulse Oximetry 100 100 99 Oxygen Delivery Room Air 01/02/25 06:00 Temperature 36.3 C L Pulse Rate 88 Respiratory Rate 17 Blood Pressure 114/59 L Pulse Oximetry 100 Oxygen Delivery Intake/Output Intake/Output: Intake & Output 12/30/24 12/31/24 01/01/25 01/02/25 23:59 23:59 23:59 23:59 Intake Total 3000 1910.0 2925 1000 Output Total 1400 1300 1450 900 Balance 1600 610.0 1475 100 Meds/Results Medications: Active Medications Generic Name Dose Route Start Last Admin Trade Name Freq PRN Reason Stop Dose Admin Acetaminophen 650 mg 12/30/24 14:13 12/30/24 14:50 Acetaminophen 650 Mg Suppository RECTAL 650 mg Q6H PRN Administration Mild Pain (1-3) or Fever Apixaban 5 mg 12/28/24 21:00 01/02/25 08:49 Apixaban 5 Mg Tablet PO Not Given Q12HR KARL Atorvastatin Calcium 40 mg 12/25/24 09:00 01/02/25 08:49 Atorvastatin 40 Mg Tablet PO Not Given DAILY KARL Atropine Sulfate 1 - 2 drop 12/28/24 16:20 Atropine Sulfate 1% Ophth Soln 5 Ml Bottle SUBLINGUAL Q4H PRN Secretions Sodium Chloride 1,000 mls @ 100 mls/hr 12/23/24 22:15 01/02/25 08:49 Normal Saline Iv IV CONT 100 mls/hr .Q10H KARL Administration Lorazepam 0.5 mg 12/28/24 16:20 Lorazepam Inj (*Crx) 2 Mg/Ml Vial IV PUSH Q2H PRN Anxiety/Comfort Morphine Sulfate 0.5 mg 12/28/24 16:20 01/02/25 13:28 Morphine Sulfate (*Crx) 2 Mg/Ml Inj IV PUSH 0.5 mg Q30M PRN Administration COMFORT Radiology Results: ITS Impressions Head/Neck CTA 12/23/24 19:26 IMPRESSION: No acute intracranial process. No large vessel intracranial occlusion, high-grade intracranial stenosis, or aneurysm. No carotid artery occlusion, dissection, or significant stenosis. 65% stenosis of the proximal left internal carotid artery at the bifurcation. Multifocal areas of calcified and noncalcified plaque throughout the left carotid system. Ulcerative appearing plaque in the right carotid bifurcation, with 19% stenosis. No vertebral artery occlusion or dissection. Severe short segment stenosis at the origin of the right vertebral artery. CT findings suggestive of chronic left maxillary sinusitis. Evolving multifocal chronic infarct changes in the left MCA territory. Chest X-Ray 12/23/24 20:21 IMPRESSION: No acute cardiopulmonary process. Chronic findings noted above. Modified Barium Swallow 12/24/24 12:26 IMPRESSION: Oropharyngeal dysphagia with episodes of laryngeal penetration without aspiration with mildly thickened liquids. Please correlate with speech pathologist findings and specific feeding recommendations. Upper Quadrant Ultrasound 12/25/24 09:26 IMPRESSION: 1: Fatty infiltration of the liver. 2: Gallbladder sludge. Brain MRI 12/25/24 14:14 IMPRESSION: 1. Likely recurrent acute infarcts now more extensive and confluent in the same left frontal, parietal and occipital regions at the site of the previously smaller scattered acute infarcts evident on the MRI from 2 months prior also in the left internal cerebral vasculature artery distribution. There is new loss of the normal flow void in the intracranial left internal carotid artery which could be seen with occlusion or slow flow. A 65% stenosis was noted at the left carotid bulb on CT angiogram dated 12/23/2024 on which there is also suggestion of a possible dissection flap which could predispose towards recurrent thrombosis. 2. New small acute infarct in the left cerebral hemisphere. Quality VTE Prophylaxis VTE prophylaxis: pharmacologic ordered
[2025-01-02 14:00] VITALS: BP 152/59; PULSE 98; RESP 20; TEMP 36.6; O2SAT 92
[2025-01-02 21:54] VITALS: PULSE 104; RESP 20; O2SAT 94
[2025-01-02 22:00] VITALS: BP 149/60; PULSE 94; RESP 18; TEMP 36.9; O2SAT 98
[2025-01-03] MEDS: SODIUM CHLORIDE 0.9% IV 1,000 ML 100 ML IV CONT ×2 (03:12→13:08)
[2025-01-03 06:00] VITALS: BP 135/52; PULSE 103; RESP 18; TEMP 37.2; O2SAT 100
[2025-01-03 14:00] VITALS: BP 122/62; PULSE 108; RESP 19; TEMP 38.1; O2SAT 97
--- NOTE | 2025-01-03 14:25 | P.PNIM_ITS ---
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 Echo with agitated saline study showed delayed transit of bubbles from right to left suggestive of extracardiac shunt. Added Eliquis. RAY was performed which showed delayed transit of bubbles from right to left suggestive of extra cardiac sound. Consistent with intrapulmonary shunt. Further pulmonary workup was performed with CT chest which revealed 5.2 cm right upper lobe mass concerning for malignancy with right hilar and mediastinal lymph node involvement. Pulmonary on board. Decision to forego biopsy are any further workup was made with the family. DVT venous duplex lower extremities were negative. CTA for pulmonary arteriovenous malformation was planned however patient refused to do any further testing. He did not have any evidence of hypoxia. To rule out underlying hepatic disease of right upper quadrant ultrasound was performed which showed fatty liver change. He subsequently was transferred to rehabilitation where he did well and ultimately discharged home. Progressive decline and new dysphagia CTA head and neck was unremarkable. Will get MRI brain to further evaluate. Will also get EEG to rule out any underlying seizures. Will also consult Neurology. Rule out new stroke. Rule out underlying seizure from recent stroke. No signs of infection evident clinically so far. Laboratory workup does reveal mild GUI and findings of dehydration of it seems improving with IV hydration. GUI and dehydration improving. LFTs are elevated as well. Right upper quadrant ultrasound unremarkable except hepatic steatosis and gallbladder sludge LFTs improving/stable DVT prophylaxis will resume apixaban Elevated liver enzymes check right upper quadrant ultrasound Dysphagia currently NPO and on IV fluids rule out new stroke neurology consult Hyperlipidemia on atorvastatin Code status DNR No overnight events. Patient does not talk. Follow some commands. on 11/25 discussed with patient family and now patient is DNR and family is in discussion with care transition coordinator for hospice care, meanwhile, patient is under comfort measures, still waiting for placement, family is looking for a place will follow up. Subjective Date/time seen: 01/03/25 14:25 Interval history: No overnight events. Patient does not talk. Follow some commands. on 11/25 discussed with patient family and now patient is DNR and family is in discussion with care transition coordinator for hospice care, meanwhile, patient is under comfort measures, still waiting for placement, family is looking for a place will follow up. Review of Systems Review of Systems: ROS unobtainable: Yes unobtainable due to medical condition and other (Patient does not speak only nods head yes no, but appropriately) Exam Narrative: Patient is comfortable, NAD HEENT: eyes are clear and none icteric LUNGS:CTA HEART: RR S1S2 ABD: BS+, Soft and nontender Lower extremities: no edema SKIN: nonjaundiced Neuro: Confused Objective Data Vital Signs Vital Signs: Vital Signs - 24 hr 01/02/25 20:00 01/02/25 21:54 01/02/25 22:00 Temperature 36.9 C Pulse Rate 104 H 94 Respiratory Rate 20 18 Blood Pressure 149/60 H Pulse Oximetry 94 98 Oxygen Delivery Room Air Room Air Fraction of Inspired Oxygen 21 01/03/25 06:00 01/03/25 08:00 Temperature 37.2 C Pulse Rate 103 H Respiratory Rate 18 Blood Pressure 135/52 L Pulse Oximetry 100 Oxygen Delivery Room Air Fraction of Inspired Oxygen Intake/Output Intake/Output: Intake & Output 12/31/24 01/01/25 01/02/25 01/03/25 23:59 23:59 23:59 23:59 Intake Total 1910.0 2925 2000 1000 Output Total 1300 1450 1500 1800 Balance 610.0 1475 500 -800 Meds/Results Medications: Active Medications Generic Name Dose Route Start Last Admin Trade Name Freq PRN Reason Stop Dose Admin Acetaminophen 650 mg 12/30/24 14:13 12/30/24 14:50 Acetaminophen 650 Mg Suppository RECTAL 650 mg Q6H PRN Administration Mild Pain (1-3) or Fever Apixaban 5 mg 12/28/24 21:00 01/03/25 10:57 Apixaban 5 Mg Tablet PO Not Given Q12HR KARL Atorvastatin Calcium 40 mg 12/25/24 09:00 01/03/25 10:57 Atorvastatin 40 Mg Tablet PO Not Given DAILY KARL Atropine Sulfate 1 - 2 drop 12/28/24 16:20 Atropine Sulfate 1% Ophth Soln 5 Ml Bottle SUBLINGUAL Q4H PRN Secretions Sodium Chloride 1,000 mls @ 100 mls/hr 12/23/24 22:15 01/03/25 13:08 Normal Saline Iv IV CONT 100 mls/hr .Q10H KARL Administration Morphine Sulfate 0.5 mg 12/28/24 16:20 01/02/25 13:28 Morphine Sulfate (*Crx) 2 Mg/Ml Inj IV PUSH 0.5 mg Q30M PRN Administration COMFORT Radiology Results: ITS Impressions Head/Neck CTA 12/23/24 19:26 IMPRESSION: No acute intracranial process. No large vessel intracranial occlusion, high-grade intracranial stenosis, or aneurysm. No carotid artery occlusion, dissection, or significant stenosis. 65% stenosis of the proximal left internal carotid artery at the bifurcation. Multifocal areas of calcified and noncalcified plaque throughout the left carotid system. Ulcerative appearing plaque in the right carotid bifurcation, with 19% stenosis. No vertebral artery occlusion or dissection. Severe short segment stenosis at the origin of the right vertebral artery. CT findings suggestive of chronic left maxillary sinusitis. Evolving multifocal chronic infarct changes in the left MCA territory. Chest X-Ray 12/23/24 20:21 IMPRESSION: No acute cardiopulmonary process. Chronic findings noted above. Modified Barium Swallow 12/24/24 12:26 IMPRESSION: Oropharyngeal dysphagia with episodes of laryngeal penetration without aspiration with mildly thickened liquids. Please correlate with speech pathologist findings and specific feeding recommendations. Upper Quadrant Ultrasound 12/25/24 09:26 IMPRESSION: 1: Fatty infiltration of the liver. 2: Gallbladder sludge. Brain MRI 12/25/24 14:14 IMPRESSION: 1. Likely recurrent acute infarcts now more extensive and confluent in the same left frontal, parietal and occipital regions at the site of the previously smaller scattered acute infarcts evident on the MRI from 2 months prior also in the left internal cerebral vasculature artery distribution. There is new loss of the normal flow void in the intracranial left internal carotid artery which could be seen with occlusion or slow flow. A 65% stenosis was noted at the left carotid bulb on CT angiogram dated 12/23/2024 on which there is also suggestion of a possible dissection flap which could predispose towards recurrent thrombosis. 2. New small acute infarct in the left cerebral hemisphere. Quality VTE Prophylaxis VTE prophylaxis: pharmacologic ordered
[2025-01-03 21:01] VITALS: TEMP 38.8
[2025-01-03] MEDS: ACETAMINOPHEN 650 MG SUPPOSITORY RECTAL (21:01)
[2025-01-03 21:16] VITALS: BP 128/60; PULSE 122; RESP 20; TEMP 38.8; O2SAT 85
[2025-01-03 22:52] VITALS: TEMP 38.2
[2025-01-04] MEDS: SODIUM CHLORIDE 0.9% IV 1,000 ML 100 ML IV CONT ×3 (00:19→19:30)
[2025-01-04 06:00] VITALS: BP 111/53; PULSE 120; RESP 20; TEMP 37.7; O2SAT 92
--- NOTE | 2025-01-04 10:40 | PCDIET ---
Pt remains NPO, no plans for nutrition. Pt to discharge to hospice care, awaiting placement. No nutrition recommendations at this time.
[2025-01-04 11:54] VITALS: TEMP 38.5
[2025-01-04 11:58] VITALS: TEMP 38.3
[2025-01-04] MEDS: ACETAMINOPHEN 650 MG SUPPOSITORY RECTAL (11:58)
[2025-01-04] MEDS: MORPHINE SULFATE (*CRX) 2 MG/ML INJ 0.5 MG IV PUSH ×7 (12:07→23:01)
[2025-01-04 13:00] VITALS: TEMP 38.2
--- NOTE | 2025-01-04 14:29 | PM.IMPN ---
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 Echo with agitated saline study showed delayed transit of bubbles from right to left suggestive of extracardiac shunt. Added Eliquis. RAY was performed which showed delayed transit of bubbles from right to left suggestive of extra cardiac sound. Consistent with intrapulmonary shunt. Further pulmonary workup was performed with CT chest which revealed 5.2 cm right upper lobe mass concerning for malignancy with right hilar and mediastinal lymph node involvement. Pulmonary on board. Decision to forego biopsy are any further workup was made with the family. DVT venous duplex lower extremities were negative. CTA for pulmonary arteriovenous malformation was planned however patient refused to do any further testing. He did not have any evidence of hypoxia. To rule out underlying hepatic disease of right upper quadrant ultrasound was performed which showed fatty liver change. He subsequently was transferred to rehabilitation where he did well and ultimately discharged home. Progressive decline and new dysphagia CTA head and neck was unremarkable. Will get MRI brain to further evaluate. Will also get EEG to rule out any underlying seizures. Will also consult Neurology. Rule out new stroke. Rule out underlying seizure from recent stroke. No signs of infection evident clinically so far. Laboratory workup does reveal mild GUI and findings of dehydration of it seems improving with IV hydration. GUI and dehydration improving. LFTs are elevated as well. Right upper quadrant ultrasound unremarkable except hepatic steatosis and gallbladder sludge LFTs improving/stable DVT prophylaxis will resume apixaban Elevated liver enzymes check right upper quadrant ultrasound Dysphagia currently NPO and on IV fluids rule out new stroke neurology consult Hyperlipidemia on atorvastatin Code status DNR No overnight events. Patient does not talk. Follow some commands. on 11/25 discussed with patient family and now patient is DNR and family is in discussion with animal daycare provider for hospice care, meanwhile, patient is under comfort measures, still waiting for placement, family is looking for a place will follow up. Now on comfort care Subjective Date/time seen: 01/04/25 14:29 Interval history: Comfortable at bedside on comfort care and awaiting facility discharge Review of Systems Review of Systems: ROS unobtainable: Yes unobtainable due to medical condition and other (Patient does not speak only nods head yes no, but appropriately) Exam Narrative: Patient is comfortable, NAD HEENT: eyes are clear and none icteric LUNGS:CTA HEART: RR S1S2 ABD: BS+, Soft and nontender Lower extremities: no edema SKIN: nonjaundiced Neuro: Confused Const: General: comfortable and no acute distress Other: Elderly, chronically ill-appearing male patient lying supine on stretcher at this time. No acute distress at this time. HENMT: Face/Nose/Sinus: Normal nares present Mouth: Yes dry mucous membranes Eyes: General: appearance normal, both eyes and all related structures Sclera: sclerae normal Neck: Neck: supple and no JVD Lymphatic: lymphadenopathy not noted Resp: Effort & Inspection: abnormal respiratory effort (Decreased effort) Auscultation: clear to auscultation bilaterally Cardio: Rate: regular rate Rhythm: regular rhythm Heart sounds: no gallops, no murmurs and no rubs GI: Inspection: non-distended Auscultation: normal bowel sounds Skin: General skin exam: normal color, no rashes or lesions noted, No lesion and No rashes Lesions: no lesions noted Rashes: no rashes noted Wounds: no wounds Neuro: Speech: No normal speech (Patient is not speaking. He nods appropriately) Motor exam (neuro): Abnormal motor strength present (Flaccid on the right side upper and lower) Extrem: General: no edema and no pedal edema Psych: Other: Unable to determine given patient is nonverbal Objective Data Vital Signs Vital Signs: Vital Signs - 24 hr 01/03/25 21:01 01/03/25 21:16 01/03/25 22:52 Temperature 101.9 F H 101.9 F H 100.8 F H Pulse Rate 122 H Respiratory Rate 20 Blood Pressure 128/60 Pulse Oximetry 85 L Oxygen Delivery 01/04/25 06:00 01/04/25 08:00 01/04/25 11:54 Temperature 99.8 F H 101.3 F H Pulse Rate 120 H Respiratory Rate 20 Blood Pressure 111/53 L Pulse Oximetry 92 Oxygen Delivery Room Air 01/04/25 11:58 01/04/25 13:00 Temperature 101 F H 100.8 F H Pulse Rate Respiratory Rate Blood Pressure Pulse Oximetry Oxygen Delivery Intake/Output Intake/Output: Intake & Output 01/01/25 01/02/25 01/03/25 01/04/25 23:59 23:59 23:59 23:59 Intake Total 2925 1999 1999 925 Output Total 1450 1500 2450 500 Balance 1475 500 -450 425 Meds/Results Medications: Active Medications Generic Name Dose Route Start Last Admin Trade Name Freq PRN Reason Stop Dose Admin Acetaminophen 650 mg 12/30/24 14:13 01/04/25 11:58 Acetaminophen 650 Mg Suppository RECTAL 650 mg Q6H PRN Administration Mild Pain (1-3) or Fever Apixaban 5 mg 12/28/24 21:00 01/04/25 09:34 Apixaban 5 Mg Tablet PO Not Given Q12HR KARL Atorvastatin Calcium 40 mg 12/25/24 09:00 01/04/25 09:34 Atorvastatin 40 Mg Tablet PO Not Given DAILY KARL Atropine Sulfate 1 - 2 drop 12/28/24 16:20 Atropine Sulfate 1% Ophth Soln 5 Ml Bottle SUBLINGUAL Q4H PRN Secretions Sodium Chloride 1,000 mls @ 100 mls/hr 12/23/24 22:15 01/04/25 09:34 Normal Saline Iv IV CONT 100 mls/hr .Q10H KARL Administration Morphine Sulfate 0.5 mg 12/28/24 16:20 01/04/25 12:07 Morphine Sulfate (*Crx) 2 Mg/Ml Inj IV PUSH 0.5 mg Q30M PRN Administration COMFORT Radiology Results: ITS Impressions Head/Neck CTA 12/23/24 19:26 IMPRESSION: No acute intracranial process. No large vessel intracranial occlusion, high-grade intracranial stenosis, or aneurysm. No carotid artery occlusion, dissection, or significant stenosis. 65% stenosis of the proximal left internal carotid artery at the bifurcation. Multifocal areas of calcified and noncalcified plaque throughout the left carotid system. Ulcerative appearing plaque in the right carotid bifurcation, with 19% stenosis. No vertebral artery occlusion or dissection. Severe short segment stenosis at the origin of the right vertebral artery. CT findings suggestive of chronic left maxillary sinusitis. Evolving multifocal chronic infarct changes in the left MCA territory. Chest X-Ray 12/23/24 20:21 IMPRESSION: No acute cardiopulmonary process. Chronic findings noted above. Modified Barium Swallow 12/24/24 12:26 IMPRESSION: Oropharyngeal dysphagia with episodes of laryngeal penetration without aspiration with mildly thickened liquids. Please correlate with speech pathologist findings and specific feeding recommendations. Upper Quadrant Ultrasound 12/25/24 09:26 IMPRESSION: 1: Fatty infiltration of the liver. 2: Gallbladder sludge. Brain MRI 12/25/24 14:14 IMPRESSION: 1. Likely recurrent acute infarcts now more extensive and confluent in the same left frontal, parietal and occipital regions at the site of the previously smaller scattered acute infarcts evident on the MRI from 2 months prior also in the left internal cerebral vasculature artery distribution. There is new loss of the normal flow void in the intracranial left internal carotid artery which could be seen with occlusion or slow flow. A 65% stenosis was noted at the left carotid bulb on CT angiogram dated 12/23/2024 on which there is also suggestion of a possible dissection flap which could predispose towards recurrent thrombosis. 2. New small acute infarct in the left cerebral hemisphere. Quality VTE Prophylaxis VTE prophylaxis: pharmacologic ordered
[2025-01-04 21:22] VITALS: BP 109/62; PULSE 106; RESP 20; TEMP 37; O2SAT 90
[2025-01-05] MEDS: MORPHINE SULFATE (*CRX) 2 MG/ML INJ 0.5 MG IV PUSH ×7 (00:16→11:12)
[2025-01-05 05:53] VITALS: BP 110/60; PULSE 103; RESP 20; TEMP 36.6; O2SAT 88
[2025-01-05] MEDS: SODIUM CHLORIDE 0.9% IV 1,000 ML 100 ML IV CONT (06:19)
[2025-01-05] MEDS: GLYCOPYRROLATE INJ (*SP) 0.2 MG/ML VIAL IV PUSH (10:10)
[2025-01-05 10:57] VITALS: O2SAT 74
[2025-01-05] MEDS: diazePAM INJ (*CRX) 10 MG/2 ML SYRINGE 5 MG IV PUSH (11:28)
[2025-01-05] MEDS: MORPHINE SULFATE (*CRX) 2 MG/ML INJ 1 MG IV PUSH ×4 (11:42→14:16)
--- NOTE | 2025-01-05 11:55 | P.PNIM_ITS ---
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 Echo with agitated saline study showed delayed transit of bubbles from right to left suggestive of extracardiac shunt. Added Eliquis. RAY was performed which showed delayed transit of bubbles from right to left suggestive of extra cardiac sound. Consistent with intrapulmonary shunt. Further pulmonary workup was performed with CT chest which revealed 5.2 cm right upper lobe mass concerning for malignancy with right hilar and mediastinal lymph node involvement. Pulmonary on board. Decision to forego biopsy are any further workup was made with the family. DVT venous duplex lower extremities were negative. CTA for pulmonary arteriovenous malformation was planned however patient refused to do any further testing. He did not have any evidence of hypoxia. To rule out underlying hepatic disease of right upper quadrant ultrasound was performed which showed fatty liver change. He subsequently was transferred to rehabilitation where he did well and ultimately discharged home. Progressive decline and new dysphagia CTA head and neck was unremarkable. Will get MRI brain to further evaluate. Will also get EEG to rule out any underlying seizures. Will also consult Neurology. Rule out new stroke. Rule out underlying seizure from recent stroke. No signs of infection evident clinically so far. Laboratory workup does reveal mild GUI and findings of dehydration of it seems improving with IV hydration. GUI and dehydration improving. LFTs are elevated as well. Right upper quadrant ultrasound unremarkable except hepatic steatosis and gallbladder sludge LFTs improving/stable DVT prophylaxis will resume apixaban Elevated liver enzymes check right upper quadrant ultrasound Dysphagia currently NPO and on IV fluids rule out new stroke neurology consult Hyperlipidemia on atorvastatin Code status DNR No overnight events. Patient does not talk. Follow some commands. on 11/25 discussed with patient family and now patient is DNR and family is in discussion with palliative care physician for hospice care, meanwhile, patient is under comfort measures, still waiting for placement, family is looking for a place will follow up. Now on comfort care Subjective Date/time seen: 01/05/25 11:55 Interval history: Comfortable at bedside on comfort care and awaiting facility discharge Review of Systems Review of Systems: ROS unobtainable: Yes unobtainable due to medical condition and other (Patient does not speak only nods head yes no, but appropriately) Exam Narrative: Patient is comfortable, NAD HEENT: eyes are clear and none icteric LUNGS:CTA HEART: RR S1S2 ABD: BS+, Soft and nontender Lower extremities: no edema SKIN: nonjaundiced Neuro: Confused Const: General: comfortable and no acute distress Other: Elderly, chronically ill-appearing male patient lying supine on stretcher at this time. No acute distress at this time. HENMT: Face/Nose/Sinus: Normal nares present Mouth: Yes dry mucous membranes Eyes: General: appearance normal, both eyes and all related structures Sclera: sclerae normal Neck: Neck: supple and no JVD Lymphatic: lymphadenopathy not noted Resp: Effort & Inspection: abnormal respiratory effort (Decreased effort) Auscultation: clear to auscultation bilaterally Cardio: Rate: regular rate Rhythm: regular rhythm Heart sounds: no gallops, no murmurs and no rubs GI: Inspection: non-distended Auscultation: normal bowel sounds Skin: General skin exam: normal color, no rashes or lesions noted, No lesion and No rashes Lesions: no lesions noted Rashes: no rashes noted Wounds: no wounds Neuro: Speech: No normal speech (Patient is not speaking. He nods appropriately) Motor exam (neuro): Abnormal motor strength present (Flaccid on the right side upper and lower) Extrem: General: no edema and no pedal edema Psych: Other: Unable to determine given patient is nonverbal Objective Data Vital Signs Vital Signs: Vital Signs - 24 hr 01/04/25 11:58 01/04/25 13:00 01/04/25 20:15 Temperature 101 F H 100.8 F H Pulse Rate Respiratory Rate Blood Pressure Pulse Oximetry Oxygen Delivery Room Air 01/04/25 21:22 01/05/25 05:53 01/05/25 08:00 Temperature 98.6 F 97.9 F Pulse Rate 106 H 103 H Respiratory Rate 20 20 Blood Pressure 109/62 110/60 Pulse Oximetry 90 88 L Oxygen Delivery Room Air 01/05/25 10:57 Temperature Pulse Rate Respiratory Rate Blood Pressure Pulse Oximetry 74 L Oxygen Delivery Room Air Intake/Output Intake/Output: Intake & Output 01/02/25 01/03/25 01/04/25 01/05/25 23:59 23:59 23:59 23:59 Intake Total 1999 1999 1924 999 Output Total 1499 2450 850 350 Balance 500 -450 1075 650 Meds/Results Medications: Active Medications Generic Name Dose Route Start Last Admin Trade Name Freq PRN Reason Stop Dose Admin Acetaminophen 650 mg 12/30/24 14:13 01/04/25 11:58 Acetaminophen 650 Mg Suppository RECTAL 650 mg Q6H PRN Administration Mild Pain (1-3) or Fever Apixaban 5 mg 12/28/24 21:00 01/05/25 08:12 Apixaban 5 Mg Tablet PO Not Given Q12HR KARL Atorvastatin Calcium 40 mg 12/25/24 09:00 01/05/25 08:12 Atorvastatin 40 Mg Tablet PO Not Given DAILY KARL Atropine Sulfate 1 - 2 drop 12/28/24 16:20 Atropine Sulfate 1% Ophth Soln 5 Ml Bottle SUBLINGUAL Q4H PRN Secretions Diazepam 5 mg 01/05/25 11:17 01/05/25 11:28 Diazepam Inj (*Crx) 10 Mg/2 Ml Syringe IV PUSH 5 mg Q8H PRN Administration restlessness Morphine Sulfate 1 mg 01/05/25 11:18 01/05/25 11:42 Morphine Sulfate (*Crx) 2 Mg/Ml Inj IV PUSH 1 mg Q30M PRN Administration COMFORT Radiology Results: ITS Impressions Head/Neck CTA 12/23/24 19:26 IMPRESSION: No acute intracranial process. No large vessel intracranial occlusion, high-grade intracranial stenosis, or aneurysm. No carotid artery occlusion, dissection, or significant stenosis. 65% stenosis of the proximal left internal carotid artery at the bifurcation. Multifocal areas of calcified and noncalcified plaque throughout the left carotid system. Ulcerative appearing plaque in the right carotid bifurcation, with 19% stenosis. No vertebral artery occlusion or dissection. Severe short segment stenosis at the origin of the right vertebral artery. CT findings suggestive of chronic left maxillary sinusitis. Evolving multifocal chronic infarct changes in the left MCA territory. Chest X-Ray 12/23/24 20:21 IMPRESSION: No acute cardiopulmonary process. Chronic findings noted above. Modified Barium Swallow 12/24/24 12:26 IMPRESSION: Oropharyngeal dysphagia with episodes of laryngeal penetration without aspiration with mildly thickened liquids. Please correlate with speech pathologist findings and specific feeding recommendations. Upper Quadrant Ultrasound 12/25/24 09:26 IMPRESSION: 1: Fatty infiltration of the liver. 2: Gallbladder sludge. Brain MRI 12/25/24 14:14 IMPRESSION: 1. Likely recurrent acute infarcts now more extensive and confluent in the same left frontal, parietal and occipital regions at the site of the previously smaller scattered acute infarcts evident on the MRI from 2 months prior also in the left internal cerebral vasculature artery distribution. There is new loss of the normal flow void in the intracranial left internal carotid artery which could be seen with occlusion or slow flow. A 65% stenosis was noted at the left carotid bulb on CT angiogram dated 12/23/2024 on which there is also suggestion of a possible dissection flap which could predispose towards recurrent thrombosis. 2. New small acute infarct in the left cerebral hemisphere. Quality VTE Prophylaxis VTE prophylaxis: pharmacologic ordered
--- NOTE | 2025-01-07 16:24 | P.DS_ITS ---
DS: Admitting Diagnosis Discharge Date 01/05/25 Admitting Diagnosis Weakness DS: Discharge Diagnosis Discharge Diagnosis (1) Acute CVA (cerebrovascular accident): Code(s): I63.9 - Cerebral infarction, unspecified Status: Acute (2) Lung mass: Code(s): R91.8 - Other nonspecific abnormal finding of lung field Status: Acute (3) Dysphagia: Code(s): R13.10 - Dysphagia, unspecified Status: Acute (4) Hospice care: Code(s): Z51.5 - Encounter for palliative care Status: Acute DS: Summary Hospital Course Hospital Course: Reason for Admission Progressive weakness, dysphagia, and functional decline following a recent left hemispheric stroke (CVA) three weeks prior, with new right-sided flaccidity and inability to swallow. Family unable to provide care at home; admitted for evaluation and management of dysphagia and debility. Hospital Course History of Present Illness: 79-year-old male with a history of: * Recent left MCA stroke (3 weeks prior) with right hemiparesis and aphasia * 5.2 cm spiculated right upper lobe lung mass with right hilar and mediastinal lymphadenopathy (no biopsy or oncologic workup per patient/family wishes) * Coronary artery disease, prior MA with stent (2003) * Arthritis, GERD * Chronic tobacco use Patient was brought to the ED by his daughter due to progressive inability to swallow, right-sided flaccidity, and concern for dehydration. Since discharge from prior hospitalization, he has become nonverbal (able to nod yes/no), with near-complete right-sided weakness. Family unable to care for him at home. Workup: * Vital signs:?Stable on admission * Labs:?WBC 13.1, BUN 52, Cr 1.36, mild GUI and dehydration (improved with IV fluids), LFTs elevated (improved/stable), UA with 3+ blood and >100 RBCs * Imaging: * Chest X-ray:?Chronic changes, no acute findings * CTA head/neck:?No acute infarct; evolving multifocal chronic infarcts in left MCA territory; 65% stenosis of left internal carotid, ulcerative plaque in right carotid (19% stenosis), severe short-segment stenosis at origin of right vertebral artery * MRI brain:?Multiple small acute infarcts in left frontal and parietal lobes, consistent with embolic disease * CT chest:?5.2 cm RUL mass with right hilar/mediastinal lymphadenopathy * RUQ US:?Hepatic steatosis, gallbladder sludge * EEG:?Abnormal, with left hemispheric slowing consistent with focal structural lesion; no evidence of seizures Consultations: * Neurology:?Confirmed recurrent left MCA infarcts, severe dysphagia, right hemiparesis, and aphasia. No evidence of seizure on EEG. * Speech Therapy:?Swallow evaluation recommended; patient remains NPO. * Pulmonology:?No further workup for lung mass per family wishes. * Care Coordination:?Engaged for hospice placement. Clinical Course: * Patient remained NPO due to severe dysphagia. Family discussed G-tube placement but ultimately declined further interventions, including for the lung mass. * Anticoagulation switched from apixaban to enoxaparin following MRI findings of recurrent stroke and possible carotid dissection. * Patient transitioned to comfort care after [id number] discussions with family. DNR status confirmed. * Family is arranging hospice placement; patient remains on comfort measures. Assessment and Plan 1. Dysphagia (R13.10): * Likely secondary to recent and recurrent left MCA strokes. * Remains NPO; IV fluids provided for hydration. * Swallow evaluation performed; G-tube discussed but declined by family. * Comfort care measures in place. 2. Right Upper Lobe Lung Mass (R91.8): * 5.2 cm spiculated RUL mass with right hilar and mediastinal lymphadenopathy. * No biopsy or oncologic intervention per patient/family wishes. * No further workup planned. 3. Debility (R53.81): * Profound right-sided flaccidity, nonverbal, unable to care for self. * Family unable to provide care at home. * PT/OT evaluation performed; patient at high risk for falls. * Discharged to hospice for ongoing comfort care. 4. Recurrent Left MCA Stroke (I63.512): * MRI: Multiple small acute infarcts in left frontal and parietal lobes. * CTA: 65% left ICA stenosis, possible dissection. * Anticoagulation with enoxaparin initiated, then discontinued as patient transitioned to comfort care. 5. Other Active Issues: * Mild GUI and dehydration: Improved with IV fluids. * Elevated LFTs: Stable, likely related to hepatic steatosis. * Hyperlipidemia: On atorvastatin. * Coronary artery disease: History of MA and stent. * Chronic tobacco use. Medications at Discharge * All disease-directed medications discontinued per comfort care/hospice protocol. * Symptom management medications as per hospice orders. Code Status * DNR Discharge Disposition * Discharged to hospice for end-of-life care. * Family aware and in agreement with plan. Summary Mr. Jeter is an 79-year-old male with advanced debility and severe dysphagia following recurrent left MCA strokes, with a known but untreated right upper lobe lung mass. After multidisciplinary evaluation and extensive family discussions, he was transitioned to comfort care and discharged to hospice. Time Spent with Patient Time attestation: Total time spent providing and/or coordinating discharge services: Discharge Plan Discharge Attending physician on discharge: Cely Dover Consulting providers: Nathaniel Baugh; Sarah Lainez; Yury Casillas; Jan Pozo; Elzi Posey; Kevin Mayer; Selvin Guthrie; Antonino Olvera; Mayur Hernández Patient Disposition: Hospice [facility] Inpatient Patient Instructions: Blood Thinners (GEN) Patient Language: Maltese Date of admission: 12/23/24 20:28 Primary Care Provider: UNKNOWN,DOCTOR Admitting Provider: Geo Nice Attending physician on admission: Cely Dover Condition: Stable
--- NOTE | 2025-01-07 16:24 | PM.DS ---
DS: Admitting Diagnosis Discharge Date 01/05/25 Admitting Diagnosis Weakness DS: Discharge Diagnosis Discharge Diagnosis (1) Acute CVA (cerebrovascular accident): Code(s): I63.9 - Cerebral infarction, unspecified Status: Acute (2) Lung mass: Code(s): R91.8 - Other nonspecific abnormal finding of lung field Status: Acute (3) Dysphagia: Code(s): R13.10 - Dysphagia, unspecified Status: Acute (4) Hospice care: Code(s): Z51.5 - Encounter for palliative care Status: Acute DS: Summary Hospital Course Hospital Course: Reason for Admission Progressive weakness, dysphagia, and functional decline following a recent left hemispheric stroke (CVA) three weeks prior, with new right-sided flaccidity and inability to swallow. Family unable to provide care at home; admitted for evaluation and management of dysphagia and debility. Hospital Course History of Present Illness: 79-year-old male with a history of: Recent left MCA stroke (3 weeks prior) with right hemiparesis and aphasia 5.2 cm spiculated right upper lobe lung mass with right hilar and mediastinal lymphadenopathy (no biopsy or oncologic workup per patient/family wishes) Coronary artery disease, prior [place] with stent (2003) Arthritis, GERD Chronic tobacco use Patient was brought to the ED by his daughter due to progressive inability to swallow, right-sided flaccidity, and concern for dehydration. Since discharge from prior hospitalization, he has become nonverbal (able to nod yes/no), with near-complete right-sided weakness. Family unable to care for him at home. Workup: Vital signs:?Stable on admission Labs:?WBC 13.1, BUN 52, Cr 1.36, mild GUI and dehydration (improved with IV fluids), LFTs elevated (improved/stable), UA with 3+ blood and >100 RBCs Imaging: Chest X-ray:?Chronic changes, no acute findings CTA head/neck:?No acute infarct; evolving multifocal chronic infarcts in left MCA territory; 65% stenosis of left internal carotid, ulcerative plaque in right carotid (19% stenosis), severe short-segment stenosis at origin of right vertebral artery MRI brain:?Multiple small acute infarcts in left frontal and parietal lobes, consistent with embolic disease CT chest:?5.2 cm RUL mass with right hilar/mediastinal lymphadenopathy RUQ US:?Hepatic steatosis, gallbladder sludge EEG:?Abnormal, with left hemispheric slowing consistent with focal structural lesion; no evidence of seizures Consultations: Neurology:?Confirmed recurrent left MCA infarcts, severe dysphagia, right hemiparesis, and aphasia. No evidence of seizure on EEG. Speech Therapy:?Swallow evaluation recommended; patient remains NPO. Pulmonology:?No further workup for lung mass per family wishes. Care Coordination:?Engaged for hospice placement. Clinical Course: Patient remained NPO due to severe dysphagia. Family discussed G-tube placement but ultimately declined further interventions, including for the lung mass. Anticoagulation switched from apixaban to enoxaparin following MRI findings of recurrent stroke and possible carotid dissection. Patient transitioned to comfort care after [id number] discussions with family. DNR status confirmed. Family is arranging hospice placement; patient remains on comfort measures. Assessment and Plan 1. Dysphagia (R13.10): Likely secondary to recent and recurrent left MCA strokes. Remains NPO; IV fluids provided for hydration. Swallow evaluation performed; G-tube discussed but declined by family. Comfort care measures in place. 2. Right Upper Lobe Lung Mass (R91.8): 5.2 cm spiculated RUL mass with right hilar and mediastinal lymphadenopathy. No biopsy or oncologic intervention per patient/family wishes. No further workup planned. 3. Debility (R53.81): Profound right-sided flaccidity, nonverbal, unable to care for self. Family unable to provide care at home. PT/OT evaluation performed; patient at high risk for falls. Discharged to hospice for ongoing comfort care. 4. Recurrent Left MCA Stroke (I63.512): MRI: Multiple small acute infarcts in left frontal and parietal lobes. CTA: 65% left ICA stenosis, possible dissection. Anticoagulation with enoxaparin initiated, then discontinued as patient transitioned to comfort care. 5. Other Active Issues: Mild GUI and dehydration: Improved with IV fluids. Elevated LFTs: Stable, likely related to hepatic steatosis. Hyperlipidemia: On atorvastatin. Coronary artery disease: History of [place] and stent. Chronic tobacco use. Medications at Discharge All disease-directed medications discontinued per comfort care/hospice protocol. Symptom management medications as per hospice orders. Code Status DNR Discharge Disposition Discharged to hospice for end-of-life care. Family aware and in agreement with plan. Summary Mr. Jeter is an 79-year-old male with advanced debility and severe dysphagia following recurrent left MCA strokes, with a known but untreated right upper lobe lung mass. After multidisciplinary evaluation and extensive family discussions, he was transitioned to comfort care and discharged to hospice. Time Spent with Patient Time attestation: Total time spent providing and/or coordinating discharge services: Discharge Plan Discharge Attending physician on discharge: Cely Dover Consulting providers: Nathaniel Baugh; Sarah Lainez; Yury Casillas; Jan Pozo; Eliz Posey; Kevin Mayer; Selvni Guthrie; Antonino Olvera; Mayur Hernández Patient Disposition: Hospice [facility] Inpatient Patient Instructions: Blood Thinners (GEN) Patient Language: Vietnamese Date of admission: 12/23/24 20:28 Primary Care Provider: UNKNOWN,DOCTOR Admitting Provider: Geo Nice Attending physician on admission: Cely Dover Condition: Stable
== END 2025-01-05 14:18 | disposition hospice, inpatient (51) | DRG 64 ==
LOC: ANHED 20:33 → ANH3MEDSUR 21:15
PROVIDERS: Internal Medicine; Nurse Practitioner Adult Health; Admitting Provider Internal Medicine; Emergency Provider Emergency Medicine; Visit Provider Internal Medicine
DX: I63.512 Cerebral infarction due to unspecified occlusion or stenosis of left middle cerebral artery (principal); E43 Unspecified severe protein-calorie malnutrition; Z68.1 Body mass index [BMI] 19.9 or less, adult; N17.9 Acute kidney failure, unspecified; I69.351 Hemiplegia and hemiparesis following cerebral infarction affecting right dominant side; R47.01 Aphasia; R13.10 Dysphagia, unspecified; R53.81 Other malaise; E86.0 Dehydration; E78.5 Hyperlipidemia, unspecified; R91.8 Other nonspecific abnormal finding of lung field; R59.0 Localized enlarged lymph nodes; I25.10 Atherosclerotic heart disease of native coronary artery without angina pectoris; I25.2 Old myocardial infarction; K21.9 Gastro-esophageal reflux disease without esophagitis; M19.90 Unspecified osteoarthritis, unspecified site; K76.0 Fatty (change of) liver, not elsewhere classified; Z66 Do not resuscitate; Z51.5 Encounter for palliative care; Z79.01 Long term (current) use of anticoagulants; Z79.899 Other long term (current) drug therapy; Z95.5 Presence of coronary angioplasty implant and graft
CPT/HCPCS: 36415; 70496; 70498; 70551; 71045; 74230; 76705; 80053; 81001; 83735; 84484; 85025; 85610; 85730; 92610; 92611; 93005; 95816; 96360; 97163; 99285; A9270; J1596; J1650; J2270; J3360; J7030; J7120; Q9967

== ENCOUNTER 2025-01-05 14:19 | HOS | payer OTHER, SELFPAY ==
[2025-01-05] MEDS: MORPHINE SULFATE INJ (*CRX) 50 MG in SODIUM CHLORIDE 0.9% IV 95 ML IV CONT (15:14)
[2025-01-05] MEDS: MORPHINE SULFATE (*CRX) 4 MG/ML INJ IV PUSH (15:16)
[2025-01-05] MEDS: GLYCOPYRROLATE INJ (*SP) 0.2 MG/ML VIAL 0.1 MG IV PUSH (15:28)
[2025-01-05] MEDS: diazePAM INJ (*CRX) 10 MG/2 ML SYRINGE 5 MG IV PUSH (21:55)
[2025-01-06] MEDS: GLYCOPYRROLATE INJ (*SP) 0.2 MG/ML VIAL 0.1 MG IV PUSH ×2 (03:10→08:17)
[2025-01-06] MEDS: diazePAM INJ (*CRX) 10 MG/2 ML SYRINGE 5 MG IV PUSH (06:06)
--- NOTE | 2025-01-06 11:41 | P.HP_ITS ---
H&P: HPI History of Present Illness Date/Time: 01/06/25 11:41 Chief Complaint: Uncontrolled pain Narrative: This 79-year-old gentleman was admitted to acute care on December 23 due to increasing weakness and weight loss. He was having trouble swallowing. His MR I of the brain revealed multiple infarcts in the left MCA region while his CTA revealed ulcerative plaque in the left carotid bifurcation and 65% stenosis of the right internal carotid. He does have a spiculated mass in the right upper lobe that he and family opted not to evaluate further. He became nonverbal with his recent stroke and unable to get out of bed by himself. Because of his poor quality of life is probable lung cancer and his multiple strokes with progressive weakness and dysphagia his family opted for inpatient hospice care for symptom management. His symptoms were uncontrolled discomfort and restlessness. He was receiving 1 mg of morphine IV push every 30 minutes and this was not controlling his symptoms. Review of Systems Review of Systems: ROS unobtainable: Yes unobtainable due to medical condition PMFSH Past Medical History Medical History Left acute arterial ischemic stroke, MCA (middle cerebral artery) Arthritis Kidney stones Hernia GERD (gastroesophageal reflux disease) Myocardial infarction Surgical History Surgical History History of heart artery stent (~2003) Family History Family History Sibling Diabetes mellitus Mother Hypertension Social History Social History (Updated 01/06/25 @ 11:41 by Geo Nice MD) Social History: Code Status: DNR Smoking status: Former smoker Alcohol intake: never Substance use: never Do You Feel Safe in your Home?: Yes Lack of Transportation: YES Lack of Food: Never True Current Housing: I Have Housing Concerned About Future Housing: No Difficulty Paying Gas/Electric Bills: No Difficulty Paying for Meds: No Currently Unemployed: No Education: Don't Know Difficulty w/ Childcare or Family Care: No Spiritual care concerns: No Meds Home Medications and Allergies Home Medications ?Medication ?Instructions ?Recorded ?Confirmed ?Type apixaban 5 mg tablet (Eliquis) 5 mg PO BID #60 tabs 12/23/24 Rx atorvastatin 40 mg tablet 40 mg PO DAILY #30 tabs 06/0912/23/24 Rx Allergies Allergy/AdvReac Type Severity Reaction Status Date / Time No Known Allergies Allergy Verified 11/06/24 17:16 Vital Signs Vital Signs - 24 hr 01/05/25 20:00 01/06/25 08:00 Oxygen Delivery Room Air Room Air Exam Narrative: HEENT: Pharyngeal mucosa pink and intact NECK: No JVD CHEST: Normal effort, audible gurgling with diffuse crackles on auscultation HEART: NL S1/S2, regular but tachycardic with frequent premature beats, no murmur ABDOMEN: BS hypoactive, soft, nontender, no mass, no bruits EXTREMITIES: No edema NEUROLOGIC: CN slightly asymmetric to inspection MUSCULOSKELETAL: No gross deformity to visual inspection PSYCH: Unresponsive to verbal or tactile stimuli Assessment and Plan Assessment and plan (1) Hospice care: Code(s): Z51.5 - Encounter for palliative care Status: Acute Assessment and Plan: * Meets inpatient hospice criteria due to requiring continuous IV morphine at 2 milligrams/hour for control of symptoms * P.r.n. palliative medications ordered (2) Dysphagia: Code(s): R13.10 - Dysphagia, unspecified Status: Acute (3) Left acute arterial ischemic stroke, MCA (middle cerebral artery): Code(s): I63.512 - Cerebral infarction due to unspecified occlusion or stenosis of left middle cerebral artery Status: Acute (4) COPD (chronic obstructive pulmonary disease): Code(s): J44.9 - Chronic obstructive pulmonary disease, unspecified Status: Acute (5) Lung mass: Code(s): R91.8 - Other nonspecific abnormal finding of lung field Status: Acute
--- NOTE | 2025-01-07 21:31 | P.DN_ITS ---
Discharge Summary Date and Time Date of : 01/06/25 Time of : 14:45 Provider Pronounced By: 2 RNs Name of First RN That Pronounced: Renee Eric Name of Second RN That Pronounced: Mamta Kimball Probable Cause of Probable Cause of : Stroke Summary Hospital Course: Admitted to inpatient hospice service for symptom management. Medications were titrated to comfort. Mr. Jeter peacefully. Additional Data Confirmation of as documented by pronouncing clinician: Pupillary Reflex, Palpable Pulses, Response to Stimuli, Heart Tones and Breath Sounds Name of Provider Notified: Dr Geo Nice Time Provider Notified: 14:55 Provider Requests Autopsy: No Family Requests Autopsy: No [facility] [employer] Notified: Yes Date [facility] Notified of : 01/06/25 Time [facility] Notified of : 15:23
== END 2025-01-06 16:41 | disposition expired | DRG 951 ==
PROVIDERS: Admitting Provider Internal Medicine; Visit Provider Internal Medicine
DX: Z51.5 Encounter for palliative care (principal); I69.320 Aphasia following cerebral infarction; I69.391 Dysphagia following cerebral infarction; J44.9 Chronic obstructive pulmonary disease, unspecified; R91.8 Other nonspecific abnormal finding of lung field
CPT/HCPCS: A9270; J1596; J2270; J3360